=== PATIENT | female | born 1940 | race Caucasian/White ===

== ENCOUNTER → 2018-01-12 11:25 | Outpatient (CLI) | payer MEDICARE, BC, SELFPAY ==
[2018-01-12 12:10] LABS: Hemoglobin A1C% w Est Avg Glu 7.8 % (4.0-6.0)
[2018-01-12 12:19] LABS: Alanine Aminotransferase 24 IU/L (9-52); Albumin 4.2 g/dL (3.5-5.0); Albumin Globulin Ratio 1.3 (1.0-2.8); Alkaline Phosphatase 64 U/L (38-126); Aspartate Aminotransferase 25 IU/L (14-36); Bilirubin Total 0.7 mg/dL (0.2-1.3); Blood Urea Nitrogen 24 mg/dL (7-17); Calcium 9.5 mg/dL (8.4-10.2); Carbon Dioxide 28 mmol/L (22-32); Chloride 102 mmol/L (98-107); Estimated Glomerular Filt Rate > 60.0 mL/min (>60); Globulin 3.3 g/dL (1.7-4.1); Glucose 115 mg/dL (80-110); HEMOLYSIS < 15 (0-50); Potassium 4.5 mmol/L (3.4-5.1); Sodium 141 mmol/L (137-145); Total Protein 7.5 g/dL (6.3-8.2)
== END ==
PROVIDERS: PCP Family Medicine; Visit Provider Family Medicine
DX: M13.0 Polyarthritis, unspecified (principal); R73.9 Hyperglycemia, unspecified
CPT/HCPCS: 36415; 80053; 83036

== ENCOUNTER 2018-03-03 12:22 | Emergency (ER) | payer MEDICARE, BC, SELFPAY ==
[2018-03-03 12:32] VITALS: BP 127/99; PULSE 78; RESP 20; TEMP 36.3; O2SAT 100; BMI 27.4
[2018-03-03 12:33] VITALS: PULSE 82
--- NOTE | 2018-03-03 12:34 | PC.NURSE ---
FAST exam negative. Pt describes numbness and tingling down the right arm and into the right hand and fingers. Denies any injury. There is slight pain in the right side of the neck when she turns her head all the way to the left. States the pain and sensation she feels in her arm is similar to when she was diagnosed with sciatica. Ambulated in the ED with steady gait.
--- NOTE | 2018-03-03 12:46 | ED_ITS ---
HPI - Extremity Injury (Upper) <Danyell Lloyd PA-C - Last Filed: 03/03/18 19:51> General Chief Complaint: Extremity Injury, Upper Stated Complaint: numbness in right arm/hand Time Seen by Provider: 03/03/18 12:38 Source: patient Mode of arrival: ambulatory Limitations: no limitations History of Present Illness HPI narrative: This 78-year-old female states that she was referred by her PCP office due to onset of tingly pain and numb sensation in her right upper extremity. She states that this started yesterday. She states that there was no new trauma, but she did do yoga which involves twisting, and it did seem to worsen after that, but was present to some degree prior. She states that pain radiates from the back of her shoulder area near the neck down into her arm. She feels like it is present more in the back of the arm into the fingers. It is hard for her to tell which fingers are affected. She states the thumb is not affected. She denies any weakness and states that it is mainly numbness and pain somewhat that limit her movement. She states that pain and tingling worsen with lying on her right shoulder, also with external rotation of the shoulder in doing overhead movements. She states that this is very similar to the sciatic type pain that she has had in the past. She states that pain improves a little bit with shaking her arm out or rubbing it, but comes back a short time later. She denies any other new pain or paresthesia. She denies any focal weakness, difficulty with speech, swallowing, walking. Not having any new chest pain or dyspnea or other new symptoms on systems review Related Data Home Medications Medication Instructions Recorded Confirmed brimonidine 1 drp OPHTH BID #0 12/03/16 03/03/18 leflunomide 20 mg tablet 20 mg PO DAILY 12/02/17 03/03/18 hydroxychloroquine 200 mg tablet 200 mg PO DAILY 01/13/18 03/03/18 naproxen 500 mg tablet 500 mg PO QD-BID PRN 01/13/18 03/03/18 Glucose: Test Strips 1 str MISCELLANEOUS QID 03/03/18 03/03/18 atorvastatin [Lipitor] 10 mg PO BEDTIME 03/03/18 03/03/18 latanoprost 1 drp EYE-BOTH BEDTIME 03/03/18 03/03/18 timolol maleate 1 drp OPHTHALMIC (EYE) SEEINSTR 03/03/18 03/03/18 Previous Rx's Medication Instructions Recorded lisinopril 2.5 mg PO QAM #90 tab 10/21/17 insulin glargine [Basaglar KwikPen 10 unit SQ HS #1 syr 10/27/17 U-100 Insulin] canagliflozin [Invokana] 100 mg PO QAM #90 tab 12/08/17 sitagliptin 100 mg tablet 100 mg PO QDAY #90 tab 12/08/17 glimepiride 2 mg tablet 2 mg PO TID #270 tabs 02/03/18 Allergies Allergy/AdvReac Type Severity Reaction Status Date / Time metformin [METFORMIN] Allergy Unknown Verified 01/13/18 08:54 Penicillins [PENICILLINS] Allergy Unknown Verified 01/13/18 08:54 rofecoxib [ROFECOXIB] Allergy Unknown Verified 01/13/18 08:54 Sulfa (Sulfonamide Allergy Unknown Verified 01/13/18 08:54 Antibiotics) [SULFA (SULFONAMIDE ANTIBIOTICS)] methotrexate AdvReac Verified 01/13/18 08:54 Review of Systems <Danyell Lloyd PA-C - Last Filed: 03/03/18 19:51> Review of Systems All systems reviewed & are unremarkable except as noted in HPI and below Exam <Danyell Lloyd PA-C - Last Filed: 03/03/18 19:51> Narrative Exam Narrative: GENERAL APPEARANCE: Patient sitting comfortably, appears well HEENT: PERRL, EOMI, normal oropharynx NECK: Supple, no masses LUNGS: Clear to auscultation bilaterally. HEART: Rate and rhythm regular without murmur, normal S1 and S2, no S3 or S4. NEUROLOGIC: Alert and oriented, normal speech with symmetric facial musculature , normal gait and coordination. MUSCULOSKELETAL: No point tenderness over the cervical or upper thoracic spine. Full Csp AROM with tenderness on right rotation, which elicits symptoms. She is moderately tender through all of the posterior and lateral right shoulder bony prominences, mildly tender over the right clavicle. She has slightly reduced external rotation of the right shoulder secondary to tenderness. She is not able to maintain resisted abduction secondary to tenderness. Otherwise full range of motion of the right shoulder. No tenderness or weakness with resisted cross-body adduction. 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 Hands are noted to be nodular DERM: No exanthem Initial Vital Signs Initial Vital Signs: Vital Signs Temperature 97.4 F L 03/03/18 12:32 Pulse Rate 78 03/03/18 12:32 Respiratory Rate 20 03/03/18 12:32 Blood Pressure 127/99 H 03/03/18 12:32 Pulse Oximetry 100 03/03/18 12:32 <DO Adrien Og Last Filed: 03/04/18 07:08> Initial Vital Signs Initial Vital Signs: Vital Signs Temperature 97.4 F L 03/03/18 12:32 Pulse Rate 78 03/03/18 12:32 Respiratory Rate 20 03/03/18 12:32 Blood Pressure 127/99 H 03/03/18 12:32 Pulse Oximetry 100 03/03/18 12:32 Course <LUCRECIA Taylor Last Filed: 03/03/18 19:51> Orders Ordered: ED Orders 03/03/18 13:00 XR cervical spine 2V or 3V Stat XR shoulder RT min 2V Stat Vital Signs - 8 hr 03/03/18 12:32 03/03/18 12:33 03/03/18 14:24 Temperature 97.4 F L Pulse Rate 78 73 Pulse Rate [Bilateral Dorsalis Pedis] 82 Respiratory Rate 20 16 Blood Pressure 127/99 H 132/113 H Pulse Oximetry 100 97 <DO Adrien Og Filed: 03/04/18 07:08> Orders Ordered: ED Orders 03/03/18 13:00 XR cervical spine 2V or 3V Stat XR shoulder RT min 2V Stat Vital Signs - 8 hr 03/03/18 12:32 03/03/18 12:33 03/03/18 14:24 Temperature 97.4 F L Pulse Rate 78 73 Pulse Rate [Bilateral Dorsalis Pedis] 82 Respiratory Rate 20 16 Blood Pressure 127/99 H 132/113 H Pulse Oximetry 100 97 MDM - Extremity Injury (Upper) <LUCRECIA Taylor Last Filed: 03/03/18 19:51> Imaging Data Cspine: Radiologist's impression: View Report History [address] [address] XRay Report Signed Patient: Sirena Salguero MR#: [id number] : 1940 Acct:[id number] Age/Sex: 78 / F Date of Service: 03/03/18 Loc: ED Accession Number: [id number] Procedure: XR cervical spine 2V or 3V Ordering Provider: Danyell Lloyd P.A-C PROCEDURE: XR CERVICAL SPINE 2V OR 3V INDICATIONS: Right upper extremity pain, radicular TECHNIQUE: 3 view(s) of the cervical spine were acquired. COMPARISON: None. FINDINGS: Bones: No fractures or dislocations to the T1 level. The lateral masses of C1 appear intact on the odontoid view. No suspicious bony lesions. There is moderately severe mid and lower cervical degenerative disc disease and facet osteoarthritis greater on the right than the left, to the degree of significant spinal and foraminal stenosis likely is present at the middle third of the cervical spine. Soft tissues: No prevertebral soft tissue swelling. IMPRESSION: No acute trauma found but moderately severe degenerative disc disease and facet osteoarthritis is present over the middle and lower thirds of the cervical spine to the degree that spinal and foraminal stenosis would be expected. Followup by MR scanning may be warranted. Dictated by: Milan Squires M.D. on 03/03/2018 at 13:53 Approved by: Milan Squires M.D. on 03/03/2018 at 13:54 shoulder: Radiologist's impression: [address] [address] XRay Report Signed Patient: Sirena Salguero MR#: [id number] : 1940 Acct:[id number] Age/Sex: 78 / F Date of Service: 03/03/18 Loc: ED Accession Number: [id number] Procedure: XR shoulder RT min 2V Ordering Provider: Danyell Lloyd P.A-C PROCEDURE: XR SHOULDER RT MIN 2V INDICATIONS: pain/impingement TECHNIQUE: 3 views of the shoulder were acquired. COMPARISON: None. FINDINGS: Bones: No fractures or dislocations. No suspicious bony lesions. Visualized ribs appear intact. Soft tissues: No suspicious soft tissue calcifications. IMPRESSION: There is moderately severe a.c. joint osteoarthritis and moderate glenohumeral joint degenerative change but no acute trauma found. Dictated by: Milan Squires M.D. on 03/03/2018 at 13:54 Approved by: Milan Squires M.D. on 03/03/2018 at 13:54 Discharge Plan Departure Patient Disposition: Home, Self-Care Clinical Impression: Cervical radicular pain, Degenerative disc disease, cervical, OA ( osteoarthritis) of shoulder Discharge Date/Time: 03/03/18 14:24 Interventions: ED Discharge Assessment Last Done: 03/03/18 14:24 Instructions: DI for Cervical Radiculopathy Activity Restrictions/Additional Instructions: You have significant arthritis in the mid and lower part of your cervical spine (neck) as well as in your shoulder. I think your pain and numbness may be more likely coming from your neck given the appearance of x-ray today, but the shoulder may contribute as well. Please avoid yoga for now and other activities that put pressure on the shoulder and neck. Continue usual medications. Return as we talked about if you have acutely worsening symptoms. Otherwise, please follow-up with your PCP to assess your progress and determine whether to do further testing such as MRI, or treatment such as physical therapy. Prescriptions: No Action hydroxychloroquine 200 mg tablet 200 mg PO DAILY RF: 0 naproxen 500 mg tablet 500 mg PO QD-BID PRN (Reason: Pain, Mild) RF: 0 leflunomide 20 mg tablet 20 mg PO DAILY RF: 0 brimonidine 0.15 % Drops 1 drp OPHTH BID Qty: 0 RF: 0 lisinopril 2.5 MG tablet 2.5 mg PO QAM Qty: 90 RF: 1 insulin glargine [Basaglar KwikPen U-100 Insulin] 100 UNIT/1 ML insulin pen 10 unit SQ HS Qty: 1 RF: 3 sitagliptin [Januvia] 100 mg tablet 100 mg PO QDAY Qty: 90 RF: 1 canagliflozin [Invokana] 100 mg tablet 100 mg PO QAM Qty: 90 RF: 0 glimepiride 2 mg tablet 2 mg PO TID Qty: 270 RF: 0 latanoprost 0.005 % drops 1 drp EYE-BOTH BEDTIME RF: 0 timolol maleate 0.5 % drops 1 drp ophthalmic (eye) SEEINSTR RF: 0 atorvastatin [Lipitor] 10 mg tablet 10 mg PO BEDTIME RF: 0 Glucose: Test Strips 1 str miscellaneous QID RF: 0 Referrals: [facility], Rheumatology [Other] Kyung Souza DO [Primary Care Provider] - <Gallito Elder DO - Last Filed: 03/04/18 07:08> Cosign ED Attending Eloise Attestation: I was available for consultation during this patient's emergency department encounter
--- NOTE | 2018-03-03 13:00 | DI.RAD.S_ITS ---
PROCEDURE: XR CERVICAL SPINE 2V OR 3V INDICATIONS: Right upper extremity pain, radicular TECHNIQUE: 3 view(s) of the cervical spine were acquired. COMPARISON: None. FINDINGS: Bones: No fractures or dislocations to the T1 level. The lateral masses of C1 appear intact on the odontoid view. No suspicious bony lesions. There is moderately severe mid and lower cervical degenerative disc disease and facet osteoarthritis greater on the right than the left, to the degree of significant spinal and foraminal stenosis likely is present at the middle third of the cervical spine. Soft tissues: No prevertebral soft tissue swelling. IMPRESSION: No acute trauma found but moderately severe degenerative disc disease and facet osteoarthritis is present over the middle and lower thirds of the cervical spine to the degree that spinal and foraminal stenosis would be expected. Followup by MR scanning may be warranted. Dictated by: Milan Squires M.D. on 03/03/2018 at 13:53 Approved by: Milan Squires M.D. on 03/03/2018 at 13:54
--- NOTE | 2018-03-03 13:00 | DI.RAD.S_ITS ---
PROCEDURE: XR SHOULDER RT MIN 2V INDICATIONS: pain/impingement TECHNIQUE: 3 views of the shoulder were acquired. COMPARISON: None. FINDINGS: Bones: No fractures or dislocations. No suspicious bony lesions. Visualized ribs appear intact. Soft tissues: No suspicious soft tissue calcifications. IMPRESSION: There is moderately severe a.c. joint osteoarthritis and moderate glenohumeral joint degenerative change but no acute trauma found. Dictated by: Milan Squires M.D. on 03/03/2018 at 13:54 Approved by: Milan Squires M.D. on 03/03/2018 at 13:54
[2018-03-03 14:24] VITALS: BP 132/113; PULSE 73; RESP 16; O2SAT 97
== END 2018-03-03 14:24 | disposition home or self-care (01) ==
PROVIDERS: Emergency Provider Internal Medicine; Family Provider Family Medicine; PCP Family Medicine
DX: M54.12 Radiculopathy, cervical region (principal); M50.30 Other cervical disc degeneration, unspecified cervical region; M19.019 Primary osteoarthritis, unspecified shoulder
CPT/HCPCS: 72040; 73030; 99282; 99283

== ENCOUNTER → 2018-04-17 08:56 | Outpatient (CLI) | payer MEDICARE, BC, SELFPAY ==
[2018-04-17 10:07] LABS: Hemoglobin A1C% w Est Avg Glu 7.8 % (4.0-6.0)
[2018-04-17 10:12] LABS: Alanine Aminotransferase 19 IU/L (9-52); Albumin 4.1 g/dL (3.5-5.0); Albumin Globulin Ratio 1.4 (1.0-2.8); Alkaline Phosphatase 46 U/L (38-126); Aspartate Aminotransferase 30 IU/L (14-36); BUN Creatinine Ratio 21.7 (6-22); Bilirubin Total 0.8 mg/dL (0.2-1.3); Blood Urea Nitrogen 13 mg/dL (7-17); Calcium 9.4 mg/dL (8.4-10.2); Carbon Dioxide 31 mmol/L (22-32); Chloride 105 mmol/L (98-107); Cholesterol 151 mg/dL (140-199); Estimated Glomerular Filt Rate > 60.0 mL/min (>60); Globulin 2.9 g/dL (1.7-4.1); Glucose 97 mg/dL (80-110); HDL Cholesterol 59 mg/dL (40-60); HEMOLYSIS < 15 (0-50); LDL Cholesterol Calculated 72 mg/dL (<100); Potassium 4.5 mmol/L (3.4-5.1); Sodium 142 mmol/L (137-145); Triglycerides 98 mg/dL (35-150)
[2018-04-17 10:31] LABS: Thyroid Stimulating Hormone 0.42 uIU/mL (0.47-4.68)
== END ==
PROVIDERS: PCP Family Medicine; Visit Provider Family Medicine
DX: E11.9 Type 2 diabetes mellitus without complications (principal); K76.0 Fatty (change of) liver, not elsewhere classified; I10 Essential (primary) hypertension
CPT/HCPCS: 36415; 80053; 80061; 83036; 84443

== ENCOUNTER → 2018-07-20 10:19 | Outpatient (CLI) | payer MEDICARE, BC, SELFPAY ==
[2018-07-20 10:52] LABS: Add Manual Diff / Slide Review NO; Basophils Percent Auto 0.8 % (0-2); Eosinophils Percent Auto 2.9 % (2-4); Mean Corpuscular HGB Conc 33.3 % (30-36); Mean Corpuscular Hemoglobin 30.9 PG (26-34); Mean Corpuscular Volume 92.7 fL (80-100); Monocytes Percent Auto 8.4 % (3-14); Neutrophils Absolute Auto 5200 /uL (1500-7000); Neutrophils Percent Auto 68.9 % (50-75); Platelet Count 195 X10^3/uL (150-400); Red Blood Cell Count 4.85 X10^6/uL (4.0-5.2); Red Cell Distribution Width 13.5 % (11.6-14.8); White Blood Cell Count 7.5 X10^3/uL (4.5-11.0)
[2018-07-20 11:07] LABS: Erythrocyte Sedimentation Rate 5 MM/HR (0-20)
[2018-07-20 11:55] LABS: Alanine Aminotransferase 22 IU/L (9-52); Albumin 4.3 g/dL (3.5-5.0); Albumin Globulin Ratio 1.7 (1.0-2.8); Alkaline Phosphatase 58 U/L (38-126); Aspartate Aminotransferase 27 IU/L (14-36); Bilirubin Total 0.9 mg/dL (0.2-1.3); Blood Urea Nitrogen 14 mg/dL (7-17); Calcium 9.8 mg/dL (8.4-10.2); Carbon Dioxide 28 mmol/L (22-32); Chloride 101 mmol/L (98-107); Estimated Glomerular Filt Rate > 60.0 mL/min (>60); Globulin 2.6 g/dL (1.7-4.1); Glucose 94 mg/dL (80-110); HEMOLYSIS < 15 (0-50); Sodium 140 mmol/L (137-145); Total Protein 6.9 g/dL (6.3-8.2)
[2018-07-20 11:57] LABS: C-Reactive Protein Quant < 0.5 mg/dL (<1.0)
[2018-07-20 12:25] LABS: Thyroid Stimulating Hormone 0.52 uIU/mL (0.47-4.68)
== END ==
PROVIDERS: Family Provider Specialist/Technologist Athletic Trainer; PCP Family Medicine; Visit Provider Family Medicine
DX: M12.9 Arthropathy, unspecified (principal); M15.0 Primary generalized (osteo)arthritis; R93.6 Abnormal findings on diagnostic imaging of limbs; E11.9 Type 2 diabetes mellitus without complications; E78.5 Hyperlipidemia, unspecified; R79.89 Other specified abnormal findings of blood chemistry
CPT/HCPCS: 36415; 80053; 83036; 84443; 85025; 85651; 86140

== ENCOUNTER → 2018-10-26 08:30 | Outpatient (CLI) | payer MEDICARE, BC, SELFPAY ==
[2018-10-26 09:03] LABS: Appearance Urine UA CLEAR; Bilirubin Urine UA NEGATIVE (NEGATIVE); Color Urine UA YELLOW; Glucose Urine UA 2+ g/dL (Negative); Ketones Urine UA NEGATIVE (NEGATIVE); Leukocyte Esterase Urine UA NEGATIVE (NEGATIVE); Nitrite Urine UA NEGATIVE (Negative); Occult Blood Urine UA TRACE-LYSED (Negative); Protein Urine UA NEGATIVE (Negative); Specific Gravity Urine UA <=1.005 (1.000-1.035); Urobilinogen Urine UA 0.2 E.U./dL (0.2)
[2018-10-26 09:17] LABS: Add Manual Diff / Slide Review NO; Basophils Absolute Auto 100 /uL (0-100); Basophils Percent Auto 1.2 % (0-2); Eosinophils Absolute Auto 200 /uL (0-450); Eosinophils Percent Auto 3.1 % (2-4); Hematocrit 44.3 % (36-46); Hemoglobin 14.5 g/dL (12.0-16.0); Lymphocytes Absolute Auto 1500 /uL (1100-4500); Lymphocytes Percent Auto 21.9 % (25-40); Mean Corpuscular HGB Conc 32.7 % (30-36); Mean Corpuscular Hemoglobin 30.3 PG (26-34); Mean Corpuscular Volume 92.8 fL (80-100); Monocytes Absolute Auto 600 /uL (0-900); Monocytes Percent Auto 8.4 % (3-14); Neutrophils Absolute Auto 4400 /uL (1500-7000); Neutrophils Percent Auto 65.4 % (50-75); Platelet Count 207 X10^3/uL (150-400); Red Blood Cell Count 4.77 X10^6/uL (4.0-5.2); Red Cell Distribution Width 13.5 % (11.6-14.8); White Blood Cell Count 6.7 X10^3/uL (4.5-11.0)
[2018-10-26 09:48] LABS: Alanine Aminotransferase 16 IU/L (9-52); Albumin 4.1 g/dL (3.5-5.0); Albumin Globulin Ratio 1.4 (1.0-2.8); Alkaline Phosphatase 51 U/L (38-126); Aspartate Aminotransferase 23 IU/L (14-36); BUN Creatinine Ratio 28.3 (6-22); Bilirubin Total 0.6 mg/dL (0.2-1.3); Blood Urea Nitrogen 17 mg/dL (7-17); Calcium 9.2 mg/dL (8.4-10.2); Carbon Dioxide 27 mmol/L (22-32); Chloride 102 mmol/L (98-107); Estimated Glomerular Filt Rate > 60.0 mL/min (>60); Globulin 2.9 g/dL (1.7-4.1); Glucose 122 mg/dL (80-110); HEMOLYSIS < 15 (0-50); Potassium 4.3 mmol/L (3.4-5.1); Sodium 138 mmol/L (137-145)
[2018-10-26 09:54] LABS: Erythrocyte Sedimentation Rate 5 MM/HR (0-20)
[2018-10-26 10:15] LABS: C-Reactive Protein Quant < 0.5 mg/dL (<1.0)
== END ==
PROVIDERS: PCP Family Medicine; Visit Provider Specialist/Technologist Athletic Trainer
DX: R93.6 Abnormal findings on diagnostic imaging of limbs (principal); M12.9 Arthropathy, unspecified; M15.0 Primary generalized (osteo)arthritis; E11.9 Type 2 diabetes mellitus without complications; I10 Essential (primary) hypertension
CPT/HCPCS: 36415; 80053; 81003; 83036; 85025; 85651; 86140

== ENCOUNTER 2018-11-14 15:03 | Emergency (ER) | payer MEDICARE, BC, SELFPAY ==
[2018-11-14 15:09] VITALS: BP 123/63; PULSE 83; RESP 17; TEMP 36; O2SAT 99
[2018-11-14] MEDS: SODIUM CHLORIDE 0.9% 1,000 ML 1000 ML IV (15:30)
--- NOTE | 2018-11-14 15:58 | ED.NAVMDI ---
HPI - Nausea/Vomiting/Diarrhea <Danyell Lloyd PA-C - Last Filed: 11/14/18 21:55> General Chief complaint: Nausea/Vomiting/Diarrhea Stated complaint: Diarrhea all day Time Seen by Provider: 11/14/18 15:58 Source: patient Mode of arrival: ambulatory Limitations: no limitations History of Present Illness HPI Narrative: This 78-year-old female comes in due to 3 day history of diarrhea. She came in mainly due to urging by her daughter. She states that this started on with explosive diarrhea that she was unable to control in the morning. She has had a couple of similar episodes since then, otherwise has multiple episodes of diarrhea daily, more than 10-12, worse in the morning. She states that she has had no appetite, trying to keep up on fluids and has been drinking Pedialyte in the last day or so. She denies abdominal pain except for some mild cramps with the diarrhea. She denies fever, chills, sweats. She denies nausea or vomiting. she denies any new urinary symptoms. She states that she has been working at a [employer] function and eating some of the food there the last few weeks, but does not know of any one else who has gotten ill. She has not worked there in the last week. She denies any new or changed medicines, no recent antibiotics, no recent travel. She is not on well water. Last episode of diarrhea was just prior to arrival here. Related Data Home Medications Medication Instructions Recorded Confirmed brimonidine 1 drp OPHTH BID #0 12/03/16 10/27/18 leflunomide 20 mg tablet 20 mg PO DAILY 12/02/17 10/27/18 hydroxychloroquine 200 mg tablet 200 mg PO DAILY 01/13/18 10/27/18 naproxen 500 mg tablet 500 mg PO QD-BID PRN 01/13/18 10/27/18 latanoprost 1 drp EYE-BOTH BEDTIME 03/03/18 10/27/18 timolol maleate 1 drp OPHTHALMIC (EYE) SEEINSTR 03/03/18 10/27/18 betamethasone dipropionate 0.05 % 1 applictn TOP BID 10/27/18 10/27/18 topical ointment prednisolone acetate 1 % eye 1 drop EYE-LEFT BID ml 10/27/18 10/27/18 drops,suspension Previous Rx's Medication Instructions Recorded insulin glargine [Basaglar KwikPen 10 unit SQ HS #1 syr 10/27/17 U-100 Insulin] blood sugar diagnostic strips #100 each 03/12/18 lisinopril 2.5 mg tablet 2.5 mg PO QAM #90 tab 05/19/18 atorvastatin 10 mg tablet 10 mg PO BEDTIME #90 tab 07/30/18 glimepiride 2 mg tablet 2 mg PO TID #270 tabs 08/11/18 canagliflozin 100 mg tablet 100 mg PO QAM #90 tab 09/01/18 sitagliptin 100 mg tablet 100 mg PO QDAY #90 tab 09/04/18 azithromycin 500 mg PO DAILY #2 tab 11/14/18 Allergies Allergy/AdvReac Type Severity Reaction Status Date / Time metformin [METFORMIN] Allergy Unknown Verified 10/27/18 08:59 Penicillins [PENICILLINS] Allergy Unknown Verified 10/27/18 08:59 rofecoxib [ROFECOXIB] Allergy Unknown Verified 10/27/18 08:59 Sulfa (Sulfonamide Allergy Unknown Verified 10/27/18 08:59 Antibiotics) [SULFA (SULFONAMIDE ANTIBIOTICS)] methotrexate AdvReac Verified 10/27/18 08:59 Review of Systems <Danyell Lloyd PA-C - Last Filed: 11/14/18 21:55> Review of Systems ROS Unobtainable: All systems reviewed & are unremarkable except as noted in HPI and below PFSH <Danyell Lloyd PA-C - Last Filed: 11/14/18 21:55> Medical History Alopecia (Chronic Unknown) Diabetes (Chronic Unknown) GERD (gastroesophageal reflux disease) (Chronic Unknown) Glaucoma (Chronic Unknown) Hyperlipemia (Chronic Unknown) Osteoarthritis (Chronic Unknown) Anemia (Resolved Unknown) Cataracts, bilateral (Resolved 2016) Kidney stones (Resolved Unknown) PUD (peptic ulcer disease) (Resolved Unknown) Surgical History Hx of cataract surgery (Resolved 2015) History of tonsillectomy Social History Smoking Status: Never smoker second hand exposure: No alcohol intake: never substance use type: does not use Social History Smoking Status: Never smoker second hand exposure: No alcohol intake: never substance use type: does not use Exam <Danyell Lloyd PA-C - Last Filed: 11/14/18 21:55> Narrative Exam Narrative: GENERAL APPEARANCE: Patient sitting comfortably, in no distress. HEENT: PERRL, EOMI, no scleral icterus, conjunctivae pink, normal oropharynx NECK: Supple LUNGS: Clear to auscultation bilaterally. HEART: Rate and rhythm regular, normal S1 and S2, no S3 or S4. ABDOMEN: Soft, nontender, nondistended, bowel sounds present x 4 quadrants, no masses palpable, no hepatosplenomegaly. EXTREMITIES: No edema, no cyanosis DERMATOLOGIC: No jaundice or exanthem NEUROLOGIC: Alert and oriented with normal speech and coordination Initial Vital Signs Initial Vital Signs: Vital Signs Temperature 96.8 F L 11/14/18 15:09 Pulse Rate 83 11/14/18 15:09 Respiratory Rate 17 11/14/18 15:09 Blood Pressure 123/63 11/14/18 15:09 Pulse Oximetry 99 11/14/18 15:09 <Gallito Elder DO - Last Filed: 11/15/18 00:15> Initial Vital Signs Initial Vital Signs: Vital Signs Temperature 96.8 F L 11/14/18 15:09 Pulse Rate 83 11/14/18 15:09 Respiratory Rate 17 11/14/18 15:09 Blood Pressure 123/63 11/14/18 15:09 Pulse Oximetry 99 11/14/18 15:09 Course <Danyell Lloyd PA-C - Last Filed: 11/14/18 21:55> Additional Information: Patient has been hydrating well at home, poor appetite but tolerating bland foods and did eat while she was here. She is afebrile, with normal, stable vitals. Able to get up and around to the bathroom. Given the frequency of her diarrhea, she does meet criteria for treatment of E coli. The source is unclear, may be more prone secondary to her immune suppressant medications. Started on azithromycin this evening and given a dose of Imodium. She will continue the azithromycin tomorrow, total of 3 doses and can use Imodium as needed. Spoke with she and her [id number] regarding need to return if any acutely worsening symptoms as in that case she may need hospitalization. Advised follow-up with PCP in a few days for recheck, and she is agreeable. Orders Ordered: ED Orders 11/14/18 15:26 Complete Blood Count AUTO DIFF Stat Comprehensive Metabolic Panel Stat Lipase Stat Magnesium Stat 11/14/18 18:15 GI Panel (Film Array) Stat Discontinued Medications Azithromycin (Zithromax) 500 mg PO NOW ONE Stop: 11/14/18 20:31 Last Admin: 11/14/18 20:46 Dose: 500 mg Sodium Chloride (Normal Saline 0.9%) 1,000 mls @ 1,000 mls/hr IV BOLUS ONE Stop: 11/14/18 17:30 Last Infusion: 11/14/18 16:33 Dose: 0 mls/hr Admin: 11/14/18 15:30 Dose: 1,000 mls/hr Sodium Chloride (Normal Saline 0.9%) 1,000 mls @ 1,000 mls/hr IV BOLUS ONE Stop: 11/14/18 17:32 Last Admin: 11/14/18 17:11 Dose: Not Given Loperamide HCl (Imodium) 4 mg PO NOW ONE Stop: 11/14/18 20:43 Last Admin: 11/14/18 20:52 Dose: 4 mg Vital Signs - 8 hr 11/14/18 16:58 11/14/18 20:04 11/14/18 21:06 Temperature 98.6 F Pulse Rate 73 77 72 Respiratory Rate 17 16 16 Blood Pressure 123/64 Blood Pressure [Right Arm] 133/54 L 111/50 L Pulse Oximetry 96 96 95 <Gallito Elder DO - Last Filed: 11/15/18 00:15> Orders Ordered: ED Orders 11/14/18 15:26 Complete Blood Count AUTO DIFF Stat Comprehensive Metabolic Panel Stat Lipase Stat Magnesium Stat 11/14/18 18:15 GI Panel (Film Array) Stat Discontinued Medications Azithromycin (Zithromax) 500 mg PO NOW ONE Stop: 11/14/18 20:31 Last Admin: 11/14/18 20:46 Dose: 500 mg Sodium Chloride (Normal Saline 0.9%) 1,000 mls @ 1,000 mls/hr IV BOLUS ONE Stop: 11/14/18 17:30 Last Infusion: 11/14/18 16:33 Dose: 0 mls/hr Admin: 11/14/18 15:30 Dose: 1,000 mls/hr Sodium Chloride (Normal Saline 0.9%) 1,000 mls @ 1,000 mls/hr IV BOLUS ONE Stop: 11/14/18 17:32 Last Admin: 11/14/18 17:11 Dose: Not Given Loperamide HCl (Imodium) 4 mg PO NOW ONE Stop: 11/14/18 20:43 Last Admin: 11/14/18 20:52 Dose: 4 mg Vital Signs - 8 hr 11/14/18 16:58 11/14/18 20:04 11/14/18 21:06 Temperature 98.6 F Pulse Rate 73 77 72 Respiratory Rate 17 16 16 Blood Pressure 123/64 Blood Pressure [Right Arm] 133/54 L 111/50 L Pulse Oximetry 96 96 95 MDM - Nausea/Vomiting/Diarrhea <Danyell Lloyd PA-C - Last Filed: 11/14/18 21:55> Lab Data Attestation: I reviewed the patient's lab results. Result diagrams: 11/14/18 15:26 11/14/18 15:26 Lab Results 11/14/18 11/14/18 11/14/18 Range/Units 15:26 15:26 18:15 WBC 7.2 (4.5-11.0) X10^3/uL RBC 4.71 (4.0-5.2) X10^6/uL Hgb 14.3 (12.0-16.0) g/dL Hct 43.6 (36-46) % MCV 92.5 (80-100) fL MCH 30.4 (26-34) PG MCHC 32.8 (30-36) % RDW 13.2 (11.6-14.8) % Plt Count 193 (150-400) X10^3/uL Neut % (Auto) 62.6 (50-75) % Lymph % (Auto) 19.6 L (25-40) % Pender % (Auto) 15.2 H (3-14) % Eos % (Auto) 1.6 L (2-4) % Baso % (Auto) 1.0 (0-2) % Neut # (Auto) 4500 (0002-6434) /uL Lymph # (Auto) 1400 (4054-3875) /uL Pender # (Auto) 1100 H (0-900) /uL Eos # (Auto) 100 (0-450) /uL Baso # (Auto) 100 (0-100) /uL Sodium 138 (137-145) mmol/L Potassium 3.7 (3.4-5.1) mmol/L Chloride 103 (98-107) mmol/L Carbon Dioxide 27 (22-32) mmol/L BUN 13 (7-17) mg/dL Creatinine 0.60 (0.52-1.04) mg/dL Estimated GFR > 60.0 (>60) mL/min BUN/Creatinine Ratio 21.7 (6-22) Glucose 119 H (80-110) mg/dL Calcium 9.6 (8.4-10.2) mg/dL Magnesium 1.9 (1.6-2.3) mg/dL Total Bilirubin 0.5 (0.2-1.3) mg/dL AST 35 (14-36) IU/L ALT 21 (9-52) IU/L Alkaline Phosphatase 55 (38-126) U/L Total Protein 7.1 (6.3-8.2) g/dL Albumin 4.2 (3.5-5.0) g/dL Globulin 2.9 (1.7-4.1) g/dL Albumin/Globulin Ratio 1.4 (1.0-2.8) Lipase 190 (23-300) U/L Stl C. cayetanensis PCR Not detected (Not Detect) Stool Rotavirus (PCR) Not detected (Not Detect) Stool Adenovirus (PCR) Not detected (Not Detect) Stool Astrovirus (PCR) Not detected (Not Detect) Stool Cryptosporidium PCR Not detected (Not Detect) Stl E.coli Shiga Tox PCR Not detected (Not Detect) St Sh/Enteroin Ecoli PCR Not detected (Not Detect) Stool E coli O157 PCR Not Reportable Stl Enterotoxigenic E PCR Detected H (Not Detect) Stool EPEC (PCR) Not detected (Not Detect) Stl E. histolytica PCR Not detected (Not Detect) Stool Giardia Lamblia PCR Not detected (Not Detect) Stool Sapovirus (PCR) Not detected (Not Detect) Stl P. shigelloides PCR Not detected (Not Detect) St Y.enterocolitica PCR Not detected (Not Detect) Stool Vibrio (PCR) Not detected (Not Detect) Stl Vibrio cholerae PCR Not detected (Not Detect) Stl Enteroaggr Ecoli PCR Detected H (Not Detect) Stl Norovirus GI/GII PCR Not detected (Not Detect) Campylobacter (PCR) Not detected (Not Detect) C. difficile Tox (PCR) Not detected (Not Detect) Salmonella (PCR) Not detected (Not Detect) <Gallito Elder, DO - Last Filed: 11/15/18 00:15> Lab Data Lab Results 11/14/18 11/14/18 11/14/18 Range/Units 15:26 15:26 18:15 WBC 7.2 (4.5-11.0) X10^3/uL RBC 4.71 (4.0-5.2) X10^6/uL Hgb 14.3 (12.0-16.0) g/dL Hct 43.6 (36-46) % MCV 92.5 (80-100) fL MCH 30.4 (26-34) PG MCHC 32.8 (30-36) % RDW 13.2 (11.6-14.8) % Plt Count 193 (150-400) X10^3/uL Neut % (Auto) 62.6 (50-75) % Lymph % (Auto) 19.6 L (25-40) % Pender % (Auto) 15.2 H (3-14) % Eos % (Auto) 1.6 L (2-4) % Baso % (Auto) 1.0 (0-2) % Neut # (Auto) 4500 (3074-2559) /uL Lymph # (Auto) 1400 (1202-4405) /uL Pender # (Auto) 1100 H (0-900) /uL Eos # (Auto) 100 (0-450) /uL Baso # (Auto) 100 (0-100) /uL Sodium 138 (137-145) mmol/L Potassium 3.7 (3.4-5.1) mmol/L Chloride 103 (98-107) mmol/L Carbon Dioxide 27 (22-32) mmol/L BUN 13 (7-17) mg/dL Creatinine 0.60 (0.52-1.04) mg/dL Estimated GFR > 60.0 (>60) mL/min BUN/Creatinine Ratio 21.7 (6-22) Glucose 119 H (80-110) mg/dL Calcium 9.6 (8.4-10.2) mg/dL Magnesium 1.9 (1.6-2.3) mg/dL Total Bilirubin 0.5 (0.2-1.3) mg/dL AST 35 (14-36) IU/L ALT 21 (9-52) IU/L Alkaline Phosphatase 55 (38-126) U/L Total Protein 7.1 (6.3-8.2) g/dL Albumin 4.2 (3.5-5.0) g/dL Globulin 2.9 (1.7-4.1) g/dL Albumin/Globulin Ratio 1.4 (1.0-2.8) Lipase 190 (23-300) U/L Stl C. cayetanensis PCR Not detected (Not Detect) Stool Rotavirus (PCR) Not detected (Not Detect) Stool Adenovirus (PCR) Not detected (Not Detect) Stool Astrovirus (PCR) Not detected (Not Detect) Stool Cryptosporidium PCR Not detected (Not Detect) Stl E.coli Shiga Tox PCR Not detected (Not Detect) St Sh/Enteroin Ecoli PCR Not detected (Not Detect) Stool E coli O157 PCR Not Reportable Stl Enterotoxigenic E PCR Detected H (Not Detect) Stool EPEC (PCR) Not detected (Not Detect) Stl E. histolytica PCR Not detected (Not Detect) Stool Giardia Lamblia PCR Not detected (Not Detect) Stool Sapovirus (PCR) Not detected (Not Detect) Stl P. shigelloides PCR Not detected (Not Detect) St Y.enterocolitica PCR Not detected (Not Detect) Stool Vibrio (PCR) Not detected (Not Detect) Stl Vibrio cholerae PCR Not detected (Not Detect) Stl Enteroaggr Ecoli PCR Detected H (Not Detect) Stl Norovirus GI/GII PCR Not detected (Not Detect) Campylobacter (PCR) Not detected (Not Detect) C. difficile Tox (PCR) Not detected (Not Detect) Salmonella (PCR) Not detected (Not Detect) Discharge Plan Departure Patient Disposition: Home Clinical Impression: E. coli gastroenteritis Discharge Date/Time: 11/14/18 21:14 Interventions: ED Discharge Assessment Last Done: 11/14/18 21:06 Instructions: DI for Diarrhea and Traveler's Diarrhea -- Adult Activity Restrictions/Additional Instructions: We have given you the 1st dose of an antibiotic azithromycin this evening to treat your diarrhea. Your lab testing shows 2 types of E coli, which is 1 of the most common infectious agents, in your stool. Given the volume of diarrhea you have been having, it is reasonable to take the antibiotic. You will need to take 2 more doses tomorrow and Friday, and I have sent a prescription to [facility] for you. In addition, you can take [id number] Imodium as needed for the diarrhea (we have given you a dose this evening before you left). As we talked about, you should return if you are having acutely worsening symptoms, or are feeling weak or dehydrated, as in that case you may need to be hospitalized. Otherwise, please continue plenty of clear fluids, and eat low residue foods such as bananas, applesauce, rice and bread (preferably white), and broth. You can add things like scrambled eggs, baked potato without the skin, and some plain pasta as you start to feel better and gradually resume your normal diet. Prescriptions: New azithromycin 500 mg tablet 500 mg PO DAILY Qty: 2 RF: 0 No Action hydroxychloroquine 200 mg tablet 200 mg PO DAILY RF: 0 naproxen 500 mg tablet 500 mg PO QD-BID PRN (Reason: Pain, Mild) RF: 0 leflunomide 20 mg tablet 20 mg PO DAILY RF: 0 prednisolone acetate 1 % drops,suspension 1 drop EYE-LEFT BID RF: 0 betamethasone dipropionate 0.05 % ointment 1 applictn TOP BID RF: 0 brimonidine 0.15 % Drops 1 drp OPHTH BID Qty: 0 RF: 0 insulin glargine [Basaglar KwikPen U-100 Insulin] 100 UNIT/1 ML insulin pen 10 unit SQ HS Qty: 1 RF: 3 blood sugar diagnostic [Blood Glucose Test] strip .ROUTE .MEDSUPPLY Qty: 100 RF: 11 lisinopril 2.5 mg tablet 2.5 mg PO QAM Qty: 90 RF: 1 atorvastatin [Lipitor] 10 mg tablet 10 mg PO BEDTIME Qty: 90 RF: 1 glimepiride 2 mg tablet 2 mg PO TID Qty: 270 RF: 1 canagliflozin [Invokana] 100 mg tablet 100 mg PO QAM Qty: 90 RF: 0 sitagliptin [Januvia] 100 mg tablet 100 mg PO QDAY Qty: 90 RF: 1 latanoprost 0.005 % drops 1 drp EYE-BOTH BEDTIME RF: 0 timolol maleate 0.5 % drops 1 drp ophthalmic (eye) SEEINSTR RF: 0 Referrals: Kyung Souza DO [Primary Care Provider] - <Gallito Elder DO - Last Filed: 11/15/18 00:15> Cosign ED Attending Emileature Attestation: I was available for consultation during this patient's emergency department encounter
[2018-11-14 16:34] LABS: Add Manual Diff / Slide Review NO; Basophils Absolute Auto 100 /uL (0-100); Eosinophils Absolute Auto 100 /uL (0-450); Eosinophils Percent Auto 1.6 % (2-4); Hematocrit 43.6 % (36-46); Hemoglobin 14.3 g/dL (12.0-16.0); Lymphocytes Absolute Auto 1400 /uL (1100-4500); Lymphocytes Percent Auto 19.6 % (25-40); Mean Corpuscular HGB Conc 32.8 % (30-36); Mean Corpuscular Hemoglobin 30.4 PG (26-34); Mean Corpuscular Volume 92.5 fL (80-100); Monocytes Absolute Auto 1100 /uL (0-900); Monocytes Percent Auto 15.2 % (3-14); Neutrophils Absolute Auto 4500 /uL (1500-7000); Neutrophils Percent Auto 62.6 % (50-75); Platelet Count 193 X10^3/uL (150-400); Red Blood Cell Count 4.71 X10^6/uL (4.0-5.2); Red Cell Distribution Width 13.2 % (11.6-14.8); White Blood Cell Count 7.2 X10^3/uL (4.5-11.0)
[2018-11-14 16:35] LABS: Alanine Aminotransferase 21 IU/L (9-52); Albumin 4.2 g/dL (3.5-5.0); Albumin Globulin Ratio 1.4 (1.0-2.8); Alkaline Phosphatase 55 U/L (38-126); Aspartate Aminotransferase 35 IU/L (14-36); BUN Creatinine Ratio 21.7 (6-22); Bilirubin Total 0.5 mg/dL (0.2-1.3); Blood Urea Nitrogen 13 mg/dL (7-17); Calcium 9.6 mg/dL (8.4-10.2); Carbon Dioxide 27 mmol/L (22-32); Chloride 103 mmol/L (98-107); Estimated Glomerular Filt Rate > 60.0 mL/min (>60); Globulin 2.9 g/dL (1.7-4.1); Glucose 119 mg/dL (80-110); HEMOLYSIS < 15 (0-50); Lipase 190 U/L (23-300); Magnesium 1.9 mg/dL (1.6-2.3); Potassium 3.7 mmol/L (3.4-5.1); Sodium 138 mmol/L (137-145); Total Protein 7.1 g/dL (6.3-8.2)
[2018-11-14 16:58] VITALS: BP 133/54; PULSE 73; RESP 17; O2SAT 96
[2018-11-14 20:04] VITALS: BP 111/50; PULSE 77; RESP 16; O2SAT 96
[2018-11-14 20:17] LABS: Campylobacter Not Detected (Not Detect); Clostridium difficile toxin AB Not Detected (Not Detect); Enteroaggregative E.coli Detected (Not Detect); Enteropathogenic E.coli Not Detected (Not Detect); Plesiomonsa shigelloides Not Detected (Not Detect); Salmonella Not Detected (Not Detect); Vibrio Not Detected (Not Detect); Vibrio cholerae Not Detected (Not Detect); Yersinia enterocolitica Not Detected (Not Detect)
[2018-11-14 20:18] LABS: Adenovirus F 40/41 Not Detected (Not Detect); Astrovirus Not Detected (Not Detect); Cryptosporidium Not Detected (Not Detect); Cyclospora cayetanensis Not Detected (Not Detect); Entamoeba histolytica Not Detected (Not Detect); Enterotoxigenic E.coli It/st Detected (Not Detect); Giardia lamblia Not Detected (Not Detect); Norovirus GI/GII Not Detected (Not Detect); Rotavirus A Not Detected (Not Detect); Sapovirus Not Detected (Not Detect); Shiga-like toxin-prod E.coli Not Detected (Not Detect); Shigella/Enteroinvasive E.coli Not Detected (Not Detect)
[2018-11-14] MEDS: AZITHROMYCIN 250 MG TABLET 500 MG PO (20:46)
[2018-11-14] MEDS: LOPERAMIDE 2 MG CAPSULE 4 MG PO (20:52)
[2018-11-14 21:06] VITALS: BP 123/64; PULSE 72; RESP 16; TEMP 37; O2SAT 95
== END 2018-11-14 21:14 | disposition home or self-care (01) ==
PROVIDERS: Emergency Provider Internal Medicine; PCP Family Medicine
DX: A04.4 Other intestinal Escherichia coli infections (principal)
CPT/HCPCS: 36591; 80053; 83690; 83735; 85025; 87507; 96360; 99283

== ENCOUNTER → 2018-11-17 14:38 | Outpatient (CLI) | payer MEDICARE, BC, SELFPAY | PROVIDERS: PCP Family Medicine; Visit Provider Family Medicine | DX: M85.851 Other specified disorders of bone density and structure, right thigh (principal); Z78.0 Asymptomatic menopausal state; E11.9 Type 2 diabetes mellitus without complications; R29.890 Loss of height; Z82.62 Family history of osteoporosis | CPT/HCPCS: 77080 ==

== ENCOUNTER → 2019-04-23 08:12 | Outpatient (CLI) | payer MEDICARE, BC, SELFPAY ==
[2019-04-23 08:56] LABS: Appearance Urine UA CLEAR; Bilirubin Urine UA NEGATIVE (NEGATIVE); Color Urine UA YELLOW; Glucose Urine UA 3+ g/dL (Negative); Ketones Urine UA NEGATIVE (NEGATIVE); Leukocyte Esterase Urine UA NEGATIVE (NEGATIVE); Nitrite Urine UA NEGATIVE (Negative); Occult Blood Urine UA TRACE-LYSED (Negative); Protein Urine UA NEGATIVE (Negative); Specific Gravity Urine UA <=1.005 (1.000-1.035); Urobilinogen Urine UA 0.2 E.U./dL (0.2)
[2019-04-23 09:09] LABS: Hematocrit 41.7 % (36-46); Hemoglobin 14.1 g/dL (12.0-16.0); Mean Corpuscular HGB Conc 33.9 % (30-36); Mean Corpuscular Volume 91.6 fL (80-100); Platelet Count 191 X10^3/uL (150-400); Red Blood Cell Count 4.56 X10^6/uL (4.0-5.2); Red Cell Distribution Width 13.1 % (11.6-14.8); White Blood Cell Count 6.8 X10^3/uL (4.5-11.0)
[2019-04-23 09:18] LABS: Hemoglobin A1C% w Est Avg Glu 6.9 % (4.0-6.0)
[2019-04-23 09:29] LABS: Alanine Aminotransferase 15 IU/L (9-52); Albumin 4.2 g/dL (3.5-5.0); Albumin Globulin Ratio 1.4 (1.0-2.8); Alkaline Phosphatase 45 U/L (38-126); Aspartate Aminotransferase 28 IU/L (14-36); BUN Creatinine Ratio 34.3 (6-22); Bilirubin Total 0.8 mg/dL (0.2-1.3); Blood Urea Nitrogen 24 mg/dL (7-17); Calcium 9.5 mg/dL (8.4-10.2); Carbon Dioxide 29 mmol/L (22-32); Chloride 101 mmol/L (98-107); Cholesterol 169 mg/dL (140-199); Estimated Glomerular Filt Rate > 60.0 mL/min (>60); Globulin 2.9 g/dL (1.7-4.1); Glucose 147 mg/dL (80-110); HDL Cholesterol 54 mg/dL (40-60); HEMOLYSIS < 15 (0-50); LDL Cholesterol Calculated 92 mg/dL (<100); Potassium 4.4 mmol/L (3.4-5.1); Sodium 139 mmol/L (137-145); Total Protein 7.1 g/dL (6.3-8.2); Triglycerides 117 mg/dL (35-150)
[2019-04-23 09:31] LABS: Neutrophils Absolute Manual 4624 /uL (3000-5900); RBC Morphology Normal Morphology; Total Cells Counted 100
[2019-04-23 10:07] LABS: Thyroid Stimulating Hormone 0.83 uIU/mL (0.47-4.68)
== END ==
PROVIDERS: PCP Family Medicine; Visit Provider Family Medicine
DX: E11.9 Type 2 diabetes mellitus without complications (principal); K76.0 Fatty (change of) liver, not elsewhere classified; M13.0 Polyarthritis, unspecified; R73.9 Hyperglycemia, unspecified
CPT/HCPCS: 36415; 80053; 80061; 81003; 83036; 84443; 85025

== ENCOUNTER → 2019-07-19 09:27 | Outpatient (CLI) | payer MEDICARE, BC, SELFPAY | PROVIDERS: PCP Family Medicine; Visit Provider Family Medicine | DX: L29.2 Pruritus vulvae (principal); N94.89 Other specified conditions associated with female genital organs and menstrual cycle | CPT/HCPCS: 87255 ==

== ENCOUNTER → 2019-09-24 08:26 | Outpatient (CLI) | payer MEDICARE, BC, SELFPAY ==
[2019-09-24 09:28] LABS: Add Manual Diff / Slide Review NO; Basophils Absolute Auto 100 /uL (0-100); Basophils Percent Auto 0.9 % (0-2); Eosinophils Absolute Auto 200 /uL (0-450); Eosinophils Percent Auto 2.9 % (2-4); Hematocrit 41.9 % (36-46); Hemoglobin 13.9 g/dL (12.0-16.0); Lymphocytes Absolute Auto 1400 /uL (1100-4500); Lymphocytes Percent Auto 23.3 % (25-40); Mean Corpuscular HGB Conc 33.2 % (30-36); Mean Corpuscular Hemoglobin 30.6 PG (26-34); Mean Corpuscular Volume 92.1 fL (80-100); Monocytes Absolute Auto 500 /uL (0-900); Monocytes Percent Auto 8.6 % (3-14); Neutrophils Absolute Auto 3900 /uL (1500-7000); Neutrophils Percent Auto 64.3 % (50-75); Platelet Count 209 X10^3/uL (150-400); Red Blood Cell Count 4.55 X10^6/uL (4.0-5.2); Red Cell Distribution Width 13.3 % (11.6-14.8); White Blood Cell Count 6.1 X10^3/uL (4.5-11.0)
[2019-09-24 09:49] LABS: Hemoglobin A1C% w Est Avg Glu 7.2 % (4.0-6.0)
[2019-09-24 09:54] LABS: Alanine Aminotransferase 11 IU/L (<35); Albumin 4.2 g/dL (3.5-5.0); Albumin Globulin Ratio 1.4 (1.0-2.8); Alkaline Phosphatase 43 U/L (38-126); Aspartate Aminotransferase 31 IU/L (14-36); BUN Creatinine Ratio 36.7 (6-22); Bilirubin Total 0.7 mg/dL (0.2-1.3); Blood Urea Nitrogen 22 mg/dL (7-17); Calcium 9.6 mg/dL (8.4-10.2); Carbon Dioxide 32 mmol/L (22-32); Chloride 102 mmol/L (98-107); Cholesterol 171 mg/dL (140-199); Estimated Glomerular Filt Rate > 60.0 mL/min (>60); Glucose 106 mg/dL (80-110); HDL Cholesterol 49 mg/dL (40-60); HEMOLYSIS < 15 (0-50); LDL Cholesterol Calculated 98 mg/dL (<100); Potassium 4.5 mmol/L (3.4-5.1); Sodium 139 mmol/L (137-145); Total Protein 7.2 g/dL (6.3-8.2); Triglycerides 118 mg/dL (35-150)
[2019-09-24 10:53] LABS: Appearance Urine UA CLEAR; Bilirubin Urine UA NEGATIVE (NEGATIVE); Color Urine UA YELLOW; Glucose Urine UA 3+ g/dL (Negative); Ketones Urine UA NEGATIVE (NEGATIVE); Leukocyte Esterase Urine UA NEGATIVE (NEGATIVE); Nitrite Urine UA NEGATIVE (Negative); Occult Blood Urine UA TRACE-LYSED (Negative); Protein Urine UA NEGATIVE (Negative); Specific Gravity Urine UA <=1.005 (1.000-1.035); Urobilinogen Urine UA 0.2 E.U./dL (0.2)
[2019-09-24 10:55] LABS: pH Urine UA 5.5 (4.5-8.0)
== END ==
PROVIDERS: PCP Family Medicine; Referring Provider Family Medicine; Visit Provider Family Medicine
DX: E11.9 Type 2 diabetes mellitus without complications (principal); K76.0 Fatty (change of) liver, not elsewhere classified; R73.9 Hyperglycemia, unspecified; M13.0 Polyarthritis, unspecified; M19.90 Unspecified osteoarthritis, unspecified site
CPT/HCPCS: 36415; 80053; 80061; 81003; 83036; 85025

== ENCOUNTER → 2019-10-06 10:46 | Outpatient (CLI) | payer MEDICARE, BC, SELFPAY ==
--- NOTE | 2019-10-06 10:48 | DI.RAD.S_ITS ---
PROCEDURE: XR ANKLE RT MIN 3V INDICATIONS: possible fracture TECHNIQUE: 3 views of the ankle were acquired. COMPARISON: None. FINDINGS: Bones: No fractures or dislocations. Ankle mortise is normally aligned. No suspicious bony lesions. Calcaneal spur is noted. Degenerative changes are noted along the dorsal surface of the midfoot. Soft tissues: Minimal lateral malleolar soft tissue edema. Achilles tendon appears normal. IMPRESSION: No visualized acute fracture or dislocation. However, if clinical concern and/or pain persist, short interval imaging followup in 7-10 days is recommended, as occult injury cannot be definitively excluded. Dictated by: Anna Diaz M.D. on 10/06/2019 at 11:06 Approved by: Anna Diaz M.D. on 10/06/2019 at 11:07
--- NOTE | 2019-10-06 10:48 | DI.RAD.S_ITS ---
PROCEDURE: XR FOOT RT MIN 3V INDICATIONS: possible fracture TECHNIQUE: 3 views of the foot were acquired. COMPARISON: [facility], CR, XR ANKLE RT MIN 3V, 10/06/2019, 10:45. FINDINGS: Bones: No acute fractures or dislocations. No suspicious bony lesions. Degenerative versus posttraumatic changes are noted within the midfoot. Overall appearance appears chronic. Prominent first MTP degenerative narrowing is noted. Soft tissues: No tibiotalar joint effusion. Achilles tendon appears normal. IMPRESSION: No visualized acute fracture or dislocation. However, if clinical concern and/or pain persist, short interval imaging followup in 7-10 days is recommended, as occult injury cannot be definitively excluded. Dictated by: Anna Diaz M.D. on 10/06/2019 at 11:07 Approved by: Anna Diaz M.D. on 10/06/2019 at 11:08
== END ==
PROVIDERS: PCP Family Medicine; Referring Provider Physician Assistant; Visit Provider Physician Assistant
DX: S99.921A Unspecified injury of right foot, initial encounter (principal); X58.XXXA Exposure to other specified factors, initial encounter
CPT/HCPCS: 73610; 73630

== ENCOUNTER → 2020-03-24 08:08 | Outpatient (CLI) | payer MEDICARE, BC, SELFPAY ==
[2020-03-24 09:05] LABS: Add Manual Diff / Slide Review NO; Basophils Absolute Auto 100 /uL (0-100); Basophils Percent Auto 1.2 % (0-2); Eosinophils Absolute Auto 200 /uL (0-450); Eosinophils Percent Auto 2.5 % (2-4); Hematocrit 41.5 % (36-46); Hemoglobin 13.8 g/dL (12.0-16.0); Lymphocytes Absolute Auto 1300 /uL (1100-4500); Lymphocytes Percent Auto 20.1 % (25-40); Mean Corpuscular HGB Conc 33.4 % (30-36); Mean Corpuscular Hemoglobin 30.6 PG (26-34); Mean Corpuscular Volume 91.7 fL (80-100); Monocytes Absolute Auto 600 /uL (0-900); Monocytes Percent Auto 9.3 % (3-14); Neutrophils Absolute Auto 4500 /uL (1500-7000); Neutrophils Percent Auto 66.9 % (50-75); Platelet Count 215 X10^3/uL (150-400); Red Blood Cell Count 4.52 X10^6/uL (4.0-5.2); Red Cell Distribution Width 13.1 % (11.6-14.8); White Blood Cell Count 6.7 X10^3/uL (4.5-11.0)
[2020-03-24 09:08] LABS: Hemoglobin A1C% w Est Avg Glu 7.2 % (4.0-6.0)
[2020-03-24 09:28] LABS: Alanine Aminotransferase 9 IU/L (<35); Albumin 4.2 g/dL (3.5-5.0); Albumin Globulin Ratio 1.6 (1.0-2.8); Alkaline Phosphatase 38 U/L (38-126); Aspartate Aminotransferase 26 IU/L (14-36); Bilirubin Total 0.8 mg/dL (0.2-1.3); Blood Urea Nitrogen 21 mg/dL (7-17); Calcium 9.4 mg/dL (8.4-10.2); Carbon Dioxide 25 mmol/L (22-32); Chloride 104 mmol/L (98-107); Cholesterol 180 mg/dL (140-199); Estimated Glomerular Filt Rate > 60.0 mL/min (>60); Globulin 2.7 g/dL (1.7-4.1); Glucose 105 mg/dL (80-110); HDL Cholesterol 54 mg/dL (40-60); HEMOLYSIS < 15 (0-50); LDL Cholesterol Calculated 95 mg/dL (<100); Potassium 4.3 mmol/L (3.4-5.1); Sodium 136 mmol/L (137-145); Total Protein 6.9 g/dL (6.3-8.2); Triglycerides 155 mg/dL (35-150)
[2020-03-24 09:41] LABS: Vitamin D 25 Hydroxy (D3) 38.7 ng/mL (30.0-100.0)
[2020-03-24 09:46] LABS: Free T3, Triiodothyronine Free 3.56 pg/mL (2.77-5.27); Free T4, Direct Thyroxine 1.15 ng/dL (0.78-2.19)
[2020-03-24 09:59] LABS: Thyroid Stimulating Hormone 0.696 uIU/mL (0.47-4.68)
== END ==
PROVIDERS: PCP Family Medicine; Referring Provider Family Medicine; Visit Provider Family Medicine
DX: E11.9 Type 2 diabetes mellitus without complications (principal); E78.5 Hyperlipidemia, unspecified; K76.0 Fatty (change of) liver, not elsewhere classified; M85.80 Other specified disorders of bone density and structure, unspecified site
CPT/HCPCS: 36415; 80053; 80061; 82306; 83036; 84439; 84443; 84481; 85025

== ENCOUNTER → 2020-04-18 12:48 | Outpatient (CLI) | payer MEDICARE, BC, SELFPAY ==
--- NOTE | 2020-04-18 16:10 | DIET.PN ---
Diabetes Intake: Initial Assessment Assess: Ms. Salguero is an 80 YOF referred for long standing Hx of type 2 diabetes. She has had some diabetes education in the past and has managed her glucose for years. After living at [facility] for a year she states her A1c went from 6.0 to 9.0. Now that she lives at home, she does most of her own cooking. Endorses a diet high in fruits and vegetables. She eats 4 oz of protein daily with minimal red meat or pork. She has not been able to engage in her regular physical activity since Covid-19, but has been able to do some yoga at home. She admits she is pretty sporadic with glucose monitoring. Labs: Per pt report: A1c: 7.2 Meds: Basaglar 12 u pm , invokana 100 mg; Januvia 100mg, glimepiride Diet: per 24 hr recall: B: cheesy eggs w/ veg, toast, orange; yogurt w/berries, 2tstw/pb, apple L: fruit bowel, mashed potatoes w/ hamburger gravy, squash D: 1/2 sandwich (tuna, pb), fruit bowel, ice cream Wt: 146lb Ht: 66in BMI: 23.6 BP: 134/74 DX: Altered nutrition related laboratory values related to impaired glucose metabolism, lack of previous exposure to nutrition information as evidenced by pt report, diagnosis of diabetes, previous diet high in refined carbohydrates. Intervention: 1. Completed intake assessment. Discussed barriers to care. 2. Discussed pathophysiology of diabetes. Reviewed A1c and its correlation to blood glucose numbers. Discussed recommended BG ranges. 3. Discussed importance of self-monitoring, how often, and when to check. Provided demonstration on use of glucometer. 4. Reviewed hyper/hypoglycemia and treatment. 5. Reviewed safe disposal of equipment (strip/lancets/insulin needles). 6. Created SMART goals for pt self-care and success. 7. Discussed program curriculum outline and class needs based on individual goals. SMART Goals: 1. Pt would like to lower A1c to <7.0 by exercising 30 min daily and learning carbohydrate counting. Monitor/Evaluate: Anticipate excellent compliance. Pt will attend full DSME program. Basic Nutrition class scheduled for May 02.
== END ==
PROVIDERS: PCP Family Medicine; Referring Provider Family Medicine; Visit Provider Family Medicine
DX: E11.9 Type 2 diabetes mellitus without complications (principal); Z71.3 Dietary counseling and surveillance; Z79.84 Long term (current) use of oral hypoglycemic drugs
CPT/HCPCS: G0108

== ENCOUNTER → 2020-05-02 13:03 | Outpatient (CLI) | payer MEDICARE, BC, SELFPAY ==
--- NOTE | 2020-05-02 14:11 | DIET.PN ---
Diabetes: Healthy Eating 1 Intervention: ? Discussed pathophysiology of diabetes and impact of nutrition/diet on blood sugar control.? Discussed fed versus non-fed state.?? ? Reviewed importance of Balance, Variety, and Moderation. ? Discussed the effect of carbohydrates/protein/fat on blood sugar control.? ? Stressed importance of consistent carbohydrate intake at each meal and provided instructions for recommended servings/portions of carbohydrates/protein per meal. Provided educational material. ? Reviewed carbohydrate counting and measuring carbohydrate content via serving sizes and reading nutrition labels.? Provided handouts.?? ? Discussed the difference between simple versus complex carbohydrates and the effect of fiber on blood sugar control.? Discussed various methods to increase fiber content in diet. ? Discussed the plate method for creating more carbohydrate conscious balanced meals. ? Stressed importance of meal timing and not going >4-5 hours between meals. Encouraged adding protein to evening snack to support glucose control overnight. ? Discussed importance of making dietary habits part of lifestyle change.
== END ==
PROVIDERS: PCP Family Medicine; Referring Provider Family Medicine; Visit Provider Family Medicine
DX: E11.9 Type 2 diabetes mellitus without complications (principal); Z71.3 Dietary counseling and surveillance
CPT/HCPCS: G0109

== ENCOUNTER → 2020-05-30 12:35 | Outpatient (CLI) | payer MEDICARE, BC, SELFPAY ==
--- NOTE | 2020-05-30 13:41 | DIET.PN ---
Diabetes: Healthy Eating 2 Intervention: Fats effects on glucose, weight, heart disease, cholesterol Sat Vs Unsat Protein- animal and plant based options Low, med, high fat meats Sugar substitutes Sodium Health claims Grocery shopping guidelines Eating away from home Alcohol Sick day guidelines Ketone Testing
== END ==
PROVIDERS: PCP Family Medicine; Referring Provider Family Medicine; Visit Provider Family Medicine
DX: E11.9 Type 2 diabetes mellitus without complications (principal); Z71.3 Dietary counseling and surveillance
CPT/HCPCS: G0109

== ENCOUNTER → 2020-06-27 12:14 | Outpatient (CLI) | payer MEDICARE, BC, SELFPAY ==
--- NOTE | 2020-06-27 13:40 | DIET.PN ---
DIABETES Nutrition Initial Assessment:? ASSESS:?? Ms. Salguero is a 80 yof??referred for type 2 diabetes seen as part of DSME program. She has made several changes to her eating habits including cutting down on starches and including protein with meals and snacks. She recently started adding a small snacks for better glucose control during the night with improved results on fasting numbers. ??? LABS: Per pt report:? A1c: 7.2 ? MEDS:?? no change ? DIET: Per 24-hour recall:? eating less carbs, increased beans, nuts, flaxseed, proteins Eating Out: rarely Changes in Appetite: no change. Satisfied Nutrition Supplements: vitamin D, cinnamon ? Weight: 145lb Height: 66in BMI: ? 23.6 ? Exercise:? walking, weights, online workout videos NUTRITION DX 1. Altered Nutrition related labs related to impaired glucose metabolism, lack of previous exposure to accurate nutrition information as evidenced by pt report, dx of diabetes, previous diet high in refined carbohydrates.? INTERVENTION(s): 1. Reviewed pathophysiology of diabetes and impact of nutrition/diet on blood sugar control.? Discussed fed versus non-fed state.?? 2. Reviewd the effect of carbohydrates/protein/fat on blood sugar control.? Stressed importance of consistent carbohydrate intake at each meal and provided instructions for recommended servings/portions of carbohydrates/protein per meal. Provided pt with educational material. 3. Reviewed carbohydrate counting and measuring carbohydrate content via serving sizes and reading nutrition labels.? 4. Discussed the difference between simple versus complex carbohydrates and the effect of fiber on blood sugar control.? Discussed various methods to increase fiber content in diet. 5. Stressed importance of meal timing and not going >4-5 hours between meals. Encouraged adding protein to evening snack to support glucose control overnight. Patient agreeable. 6. Discussed healthy weight loss goals of 1-2lbs per week through diet and exercise.? Pt agreeable to walking at least 30 minutes daily. 7. Recommend monitoring fasting and alternating 2 hr PP mealtime glucose. MONITOR/EVALUATE: Anticipate good compliance.? follow-up scheduled for 2 month.
[2020-06-27 13:41] VITALS: BMI 23.3
== END ==
PROVIDERS: PCP Family Medicine; Referring Provider Family Medicine; Visit Provider Family Medicine
DX: E11.9 Type 2 diabetes mellitus without complications (principal); Z71.3 Dietary counseling and surveillance
CPT/HCPCS: G0109

== ENCOUNTER → 2020-08-29 10:23 | Outpatient (CLI) | payer MEDICARE, BC, SELFPAY ==
[2020-08-29] MEDS: COVID-19 VACC #1, MRNA(MOD) 100 MCG/0.5 ML VIAL IM (10:44)
== END ==
PROVIDERS: PCP Family Medicine; Visit Provider Internal Medicine
DX: Z23 Encounter for immunization (principal)
CPT/HCPCS: 0011A; 91301

== ENCOUNTER → 2020-09-13 08:28 | Outpatient (CLI) | payer MEDICARE, BC, SELFPAY ==
[2020-09-13 09:59] LABS: Add Manual Diff / Slide Review NO; Basophils Absolute Auto 100 /uL (0-100); Basophils Percent Auto 1.1 % (0-2); Eosinophils Absolute Auto 200 /uL (0-450); Eosinophils Percent Auto 3.1 % (2-4); Hematocrit 44.3 % (36-46); Hemoglobin 14.4 g/dL (12.0-16.0); Lymphocytes Absolute Auto 1400 /uL (1100-4500); Lymphocytes Percent Auto 22.4 % (25-40); Mean Corpuscular HGB Conc 32.4 % (30-36); Mean Corpuscular Hemoglobin 30.5 PG (26-34); Mean Corpuscular Volume 94.2 fL (80-100); Monocytes Absolute Auto 500 /uL (0-900); Monocytes Percent Auto 8.2 % (3-14); Neutrophils Absolute Auto 4100 /uL (1500-7000); Neutrophils Percent Auto 65.2 % (50-75); Platelet Count 213 X10^3/uL (150-400); Red Blood Cell Count 4.71 X10^6/uL (4.0-5.2); Red Cell Distribution Width 13.1 % (11.6-14.8); White Blood Cell Count 6.2 X10^3/uL (4.5-11.0)
[2020-09-13 10:07] LABS: Hemoglobin A1C% w Est Avg Glu 7.1 % (4.0-6.0)
[2020-09-13 10:11] LABS: Alanine Aminotransferase 9 IU/L (<35); Albumin 4.5 g/dL (3.5-5.0); Albumin Globulin Ratio 1.6 (1.0-2.8); Alkaline Phosphatase 45 U/L (38-126); Aspartate Aminotransferase 28 IU/L (14-36); BUN Creatinine Ratio 40.3 (6-22); Bilirubin Total 0.6 mg/dL (0.2-1.3); Blood Urea Nitrogen 25 mg/dL (7-17); Calcium 9.4 mg/dL (8.4-10.2); Carbon Dioxide 32 mmol/L (22-32); Chloride 102 mmol/L (98-107); Cholesterol 189 mg/dL (140-199); Estimated Glomerular Filt Rate > 60.0 mL/min (>60); Globulin 2.9 g/dL (1.7-4.1); Glucose 85 mg/dL (80-110); HDL Cholesterol 60 mg/dL (40-60); HEMOLYSIS < 15 (0-50); LDL Cholesterol Calculated 106 mg/dL (<100); Sodium 138 mmol/L (137-145); Total Protein 7.4 g/dL (6.3-8.2); Triglycerides 116 mg/dL (35-150)
[2020-09-13 10:27] LABS: Vitamin D 25 Hydroxy (D3) 47.7 ng/mL (30.0-100.0)
== END ==
PROVIDERS: PCP Family Medicine; Referring Provider Family Medicine; Visit Provider Family Medicine
DX: A60.00 Herpesviral infection of urogenital system, unspecified (principal); E11.9 Type 2 diabetes mellitus without complications; M85.80 Other specified disorders of bone density and structure, unspecified site; E78.5 Hyperlipidemia, unspecified
CPT/HCPCS: 36415; 80053; 80061; 82306; 83036; 85025

== ENCOUNTER → 2020-09-26 10:22 | Outpatient (CLI) | payer MEDICARE, BC, SELFPAY ==
[2020-09-26] MEDS: COVID-19 VACC #2, MRNA(MOD) 100 MCG/0.5 ML VIAL IM (10:36)
== END ==
PROVIDERS: PCP Family Medicine; Visit Provider Internal Medicine
DX: Z23 Encounter for immunization (principal)
CPT/HCPCS: 0012A; 91301

== ENCOUNTER 2021-01-22 10:10 | Emergency (ER) | payer MEDICARE, BC, SELFPAY ==
[2021-01-22 10:37] VITALS: BP 147/66; PULSE 70; RESP 14; TEMP 36.2; O2SAT 99
--- NOTE | 2021-01-22 11:37 | DI.RAD.S_ITS ---
PROCEDURE: XR CHEST 1V INDICATIONS: chest pain TECHNIQUE: One view of the chest was acquired. COMPARISON: None. FINDINGS: Surgical changes and devices: None. Lungs and pleura: Lungs are clear. No pleural effusions or pneumothorax. Mediastinum: Mediastinal contours appear normal. Heart size is normal. Bones and chest wall: No suspicious bony lesions. Overlying soft tissues appear unremarkable. IMPRESSION: No acute pulmonary process. Dictated by: Anna Diaz M.D. on 01/22/2021 at 12:28 Approved by: Anna Diaz M.D. on 01/22/2021 at 12:28
--- NOTE | 2021-01-22 11:40 | DI.CT.S_ITS ---
PROCEDURE: CT HEAD/BRAIN WO CON INDICATIONS: dizziness TECHNIQUE: Noncontrast 4.5 mm thick angled axial sections acquired from the foramen magnum to the vertex, with coronal and sagittal reformats. For radiation dose reduction, the following was used: automated exposure control, adjustment of mA and/or kV according to patient size. COMPARISON: [facility], CT, HEAD WITHOUT CONTRAST, 01/06/2008, 17:11. FINDINGS: Image quality: Excellent. CSF spaces: Basal cisterns are patent. No extra-axial fluid collections. The ventricles are symmetric in size and shape. Brain: No intracranial bleeds or masses. There is cerebral volume loss for age, with resultant ventricular and sulcal prominence. There are periventricular and deep white matter chronic small vessel ischemic changes. There is intracranial internal carotid artery atherosclerosis. Skull and face: Calvarium and visualized facial bones appear intact, without suspicious lesions. Bilateral intraocular lens replacements noted. Sinuses: Visualized sinuses and mastoids are clear. IMPRESSION: Atrophy and chronic ischemic change without acute hemorrhage or mass effect. Dictated by: Aman Kwan M.D. on 01/22/2021 at 11:08 Approved by: Aman Kwan M.D. on 01/22/2021 at 11:11
--- NOTE | 2021-01-22 13:50 | PC.NURSE ---
Patient does not complain of chest pain, dizziness, SOB. She has no known cardiac history. She does complain of dizziness for 3 weeks and post void retention pressure. She denies fever, rigors, or night sweats.
[2021-01-22 14:01] LABS: Alanine Aminotransferase 10 IU/L (<35); Albumin 4.6 g/dL (3.5-5.0); Albumin Globulin Ratio 1.4 (1.0-2.8); Alkaline Phosphatase 50 U/L (38-126); Aspartate Aminotransferase 28 IU/L (14-36); BUN Creatinine Ratio 30.9 (6-22); Bilirubin Total 0.6 mg/dL (0.2-1.3); Blood Urea Nitrogen 17 mg/dL (7-17); Calcium 10.1 mg/dL (8.4-10.2); Carbon Dioxide 29 mmol/L (22-32); Chloride 103 mmol/L (98-107); Creatine Kinase 58 U/L (30-135); Estimated Glomerular Filt Rate > 60.0 mL/min (>60); Globulin 3.2 g/dL (1.7-4.1); Glucose 107 mg/dL (80-110); HEMOLYSIS < 15 (0-50); Lipase 87 U/L (23-300); Potassium 4.2 mmol/L (3.4-5.1); Sodium 139 mmol/L (137-145); Total Protein 7.8 g/dL (6.3-8.2)
[2021-01-22 14:02] LABS: Magnesium 2.3 mg/dL (1.6-2.3)
[2021-01-22 14:04] LABS: Add Manual Diff / Slide Review NO; Basophils Absolute Auto 100 /uL (0-100); Basophils Percent Auto 0.8 % (0-2); Eosinophils Absolute Auto 200 /uL (0-450); Eosinophils Percent Auto 2.5 % (2-4); Hematocrit 42.7 % (36-46); Hemoglobin 14.1 g/dL (12.0-16.0); Lymphocytes Absolute Auto 1900 /uL (1100-4500); Lymphocytes Percent Auto 23.5 % (25-40); Mean Corpuscular HGB Conc 33.1 % (30-36); Mean Corpuscular Hemoglobin 30.7 PG (26-34); Mean Corpuscular Volume 92.8 fL (80-100); Monocytes Absolute Auto 700 /uL (0-900); Monocytes Percent Auto 8.4 % (3-14); Neutrophils Absolute Auto 5300 /uL (1500-7000); Neutrophils Percent Auto 64.8 % (50-75); Platelet Count 203 X10^3/uL (150-400); Red Blood Cell Count 4.61 X10^6/uL (4.0-5.2); Red Cell Distribution Width 13.4 % (11.6-14.8); White Blood Cell Count 8.1 X10^3/uL (4.5-11.0)
--- NOTE | 2021-01-22 14:10 | ED_ITS ---
HPI - Dizziness General Chief Complaint: Dizziness Stated Complaint: dizzy spells, increasing over 3 weeks Time Seen by Provider: 01/22/21 11:37 Source: patient and old records reviewed Mode of arrival: Ambulatory Limitations: no limitations History of Present Illness HPI Narrative: 80-year-old female comes in with complaint of dizziness she describes the room spinning particularly when she bends her head down or flexes her neck. Patient has not any syncope. She has had 3 weeks of symptoms which have been slowly worsening over time. She states initially they were brief. She had episode of about 4 hours today. There occasional. There is no specific provoking incident other than flexing her neck and looking down words. 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 This had to be repaired. She denies any numbness, tingling or weakness in extremities, no speech issues, no facial droop. She has had some chronic gait troubles and states she does use a walker when she goes more than a block. Her gait issues are not isolated to her vertigo symptoms. She has had some chronic issues with urinary hesitancy. She has had normal bowel movements. She has had no nausea or vomiting other GI symptoms. She does have a history of diabetes, arthritis, no prior strokes or heart attacks, she states she takes medication for hypertension and dyslipidemia has remote history of kidney stones. She denies any surgeries besides cornea cardiac. No tobacco, alcohol or illicit. Related Data Home Medications Medication Instructions Recorded Confirmed leflunomide 20 mg tablet 20 mg PO DAILY 12/02/17 09/19/20 hydroxychloroquine 200 mg tablet 200 mg PO DAILY 01/13/18 09/19/20 naproxen 500 mg tablet 500 mg PO QD-BID PRN 01/13/18 09/19/20 latanoprost 1 drp EYE-BOTH BEDTIME 03/03/18 09/19/20 timolol maleate 1 drp OPHTHALMIC (EYE) SEEINSTR 03/03/18 09/19/20 betamethasone dipropionate 0.05 % 1 applictn TOP BID 10/27/18 09/19/20 topical ointment cholecalciferol (vitamin D3) 50 2,000 unit PO DAILY 03/24/19 09/19/20 mcg (2,000 unit) capsule Previous Rx's Medication Instructions Recorded Disabled parking permit #1 ea 03/24/19 alendronate 35 mg tablet 35 mg PO QWEEK #12 tab 11/05/19 brimonidine 0.15 % eye drops 1 drp OPHTHALMIC (EYE) BID #10 ml 11/05/19 blood sugar diagnostic #100 each 02/14/20 acyclovir 5 % topical cream 1 applictn TOP 5XD 4 Days #5 gram 03/28/20 acyclovir 400 mg tablet 400 mg PO TID #42 tab 04/11/20 sitagliptin 100 mg tablet See Rx Instructions .ROUTE 08/22/20 .COMPLEX #90 tab insulin glargine 100 unit/mL (3 12 unit SUBCUT HS #1 ml 10/20/20 mL) subcutaneous pen atorvastatin 10 mg tablet See Rx Instructions .ROUTE 10/31/20 .COMPLEX #90 tablet canagliflozin 100 mg tablet 100 mg PO QAM #90 tab 10/31/20 glimepiride 2 mg tablet See Rx Instructions .ROUTE 10/31/20 .COMPLEX #270 tablet lisinopril 2.5 mg tablet See Rx Instructions .ROUTE 10/31/20 .COMPLEX #90 tablet meclizine 25 mg PO TID PRN #14 tab 01/22/21 Allergies Allergy/AdvReac Type Severity Reaction Status Date / Time metformin [METFORMIN] Allergy Unknown Verified 01/22/21 10:41 Penicillins [PENICILLINS] Allergy Unknown Verified 01/22/21 10:41 rofecoxib [ROFECOXIB] Allergy Unknown Verified 01/22/21 10:41 Sulfa (Sulfonamide Allergy Unknown Verified 01/22/21 10:41 Antibiotics) [SULFA (SULFONAMIDE ANTIBIOTICS)] methotrexate AdvReac Verified 01/22/21 10:41 Review of Systems Review of Systems ROS Unobtainable: All systems reviewed & are unremarkable except as noted in HPI and below Patient History Medical History Acute pain of right shoulder Alopecia (Unknown) Anemia (Unknown) Body posture problem Cataracts, bilateral (2016) Diabetes (Unknown) GERD (gastroesophageal reflux disease) (Unknown) Glaucoma (Unknown) Hyperlipemia (Unknown) Kidney stones (Unknown) Osteoarthritis (Unknown) Osteopenia after menopause PUD (peptic ulcer disease) (Unknown) Right foot injury Urinary retention with incomplete bladder emptying Surgical History History of tonsillectomy Hx of cataract surgery (2016) Social History Smoking Status: Never smoker second hand exposure: No alcohol intake: never substance use type: does not use eating out: rarely or never Type(s) of exercise: yoga Smoking Status: Never smoker Substance Use Type: does not use Exam Narrative Exam Narrative: GEN: well nourished, well appearing elderly female, alert and oriented x 3, patient appears to be in mild distress. HEENT: Atraumatic, pupils are equal round reactive to light, extraocular movements are intact, nares are clear, TMs are clear with no fluid, there is no conjunctival pallor. Throat is clear without any exudates, erythema, tonsillar enlargement or uvular deviation, no facial droop HEART: Regular rate and rhythm without murmur, clicks, rubs. Pulses are equal in upper and lower extremities LUNGS:Lungs clear to auscultation, no wheezes, rales, crackles, chest moves symmetrically ABD:bowel sounds normal, soft, non-tender, no guarding, rebound, rigidity, no masses noted, no hepatosplenomegaly :No CVA tenderness MSCL: Non-tender, no muscle atrophy, muscles strength 5/5 upper and lower extremities, full range of motion NEURO:CN 2-12 intact, sensation normal, finger nose finger test normal, heel taylor test normal SKIN: Rash, erythema other skin changes noted Initial Vital Signs Initial Vital Signs: Vital Signs Temperature 97.1 F L 01/22/21 10:37 Pulse Rate 70 01/22/21 10:37 Respiratory Rate 14 01/22/21 10:37 Blood Pressure 147/66 H 01/22/21 10:37 Pulse Oximetry 99 01/22/21 10:37 Scores NIH Stroke Scale Level of Conciousness: Alert, keenly responsive Ask month/age: Answers both questions correctly. Open/close eyes, close hand: Performs both tasks correctly Best gaze horizontal: Normal Visual lux: No visual loss Facial palsy: Normal symetrical movement Left arm drift: No drift for full 10 sec Right arm drift: No drift for full 10 sec Left leg drift: No drift for full 5 sec Right leg drift: No drift for full 5 sec Limb ataxia: Absent Sensory on face/arms/legs: Normal, no sensory loss Best language: No aphasia, normal Dysarthria: Normal Extinction or inattention: No abnormality Total NIH Stroke scale score: 0 Course Orders Ordered: ED Orders 01/22/21 11:37 XR chest 1V Stat EKG-12 Lead Stat 01/22/21 11:40 CT head/brain wo con Stat 01/22/21 13:30 Urine Microscopic Stat 01/22/21 13:35 Complete Blood Count AUTO DIFF Stat Comprehensive Metabolic Panel Stat Lipase Stat Magnesium Stat Troponin & CK Cardiac Panel Stat Vital Signs Vital signs: Vital Signs - 8 hr 01/22/21 14:55 Pulse Rate 68 Respiratory Rate 18 Blood Pressure 153/67 H Pulse Oximetry 98 MDM - Dizziness Lab Data Attestation: I reviewed the patient's lab results. Result diagrams: 01/22/21 13:35 01/22/21 13:35 Labs: Lab Results 01/22/21 01/22/21 01/22/21 Range/Units 13:30 13:35 13:35 WBC 8.1 (4.5-11.0) X10^3/uL RBC 4.61 (4.0-5.2) X10^6/uL Hgb 14.1 (12.0-16.0) g/dL Hct 42.7 (36-46) % MCV 92.8 (80-100) fL MCH 30.7 (26-34) PG MCHC 33.1 (30-36) % RDW 13.4 (11.6-14.8) % Plt Count 203 (150-400) X10^3/uL Neut % (Auto) 64.8 (50-75) % Lymph % (Auto) 23.5 L (25-40) % Elliott % (Auto) 8.4 (3-14) % Eos % (Auto) 2.5 (2-4) % Baso % (Auto) 0.8 (0-2) % Neut # (Auto) 5300 (2030-2763) /uL Lymph # (Auto) 1900 (3598-6321) /uL Elliott # (Auto) 700 (0-900) /uL Eos # (Auto) 200 (0-450) /uL Baso # (Auto) 100 (0-100) /uL Sodium 139 (137-145) mmol/L Potassium 4.2 (3.4-5.1) mmol/L Chloride 103 (98-107) mmol/L Carbon Dioxide 29 (22-32) mmol/L BUN 17 (7-17) mg/dL Creatinine 0.55 (0.52-1.04) mg/dL Estimated GFR > 60.0 (>60) mL/min BUN/Creatinine Ratio 30.9 H (6-22) Glucose 107 (80-110) mg/dL Calcium 10.1 (8.4-10.2) mg/dL Magnesium (1.6-2.3) mg/dL Total Bilirubin 0.6 (0.2-1.3) mg/dL AST 28 (14-36) IU/L ALT 10 (<35) IU/L Alkaline Phosphatase 50 (38-126) U/L Total Creatine Kinase 58 (30-135) U/L CK-MB (CK-2) TNP CK-MB (CK-2) Rel Index TNP Troponin I < 0.012 (0.01-0.034) ng/mL Total Protein 7.8 (6.3-8.2) g/dL Albumin 4.6 (3.5-5.0) g/dL Globulin 3.2 (1.7-4.1) g/dL Albumin/Globulin Ratio 1.4 (1.0-2.8) Lipase 87 (23-300) U/L Urine RBC 0-1/hpf (0-5/HPF) Urine WBC 1-5/hpf (0-5/HPF) Ur Squamous Epith Cells 0-1 /hpf (0-5/HPF) Urine Bacteria Occasional (0-1) (None) Ur Culture Indicated? Cult not indicated 01/22/21 Range/Units 13:35 WBC (4.5-11.0) X10^3/uL RBC (4.0-5.2) X10^6/uL Hgb (12.0-16.0) g/dL Hct (36-46) % MCV (80-100) fL MCH (26-34) PG MCHC (30-36) % RDW (11.6-14.8) % Plt Count (150-400) X10^3/uL Neut % (Auto) (50-75) % Lymph % (Auto) (25-40) % Elliott % (Auto) (3-14) % Eos % (Auto) (2-4) % Baso % (Auto) (0-2) % Neut # (Auto) (9426-5392) /uL Lymph # (Auto) (1720-8020) /uL Elliott # (Auto) (0-900) /uL Eos # (Auto) (0-450) /uL Baso # (Auto) (0-100) /uL Sodium (137-145) mmol/L Potassium (3.4-5.1) mmol/L Chloride (98-107) mmol/L Carbon Dioxide (22-32) mmol/L BUN (7-17) mg/dL Creatinine (0.52-1.04) mg/dL Estimated GFR (>60) mL/min BUN/Creatinine Ratio (6-22) Glucose (80-110) mg/dL Calcium (8.4-10.2) mg/dL Magnesium 2.3 (1.6-2.3) mg/dL Total Bilirubin (0.2-1.3) mg/dL AST (14-36) IU/L ALT (<35) IU/L Alkaline Phosphatase (38-126) U/L Total Creatine Kinase (30-135) U/L CK-MB (CK-2) CK-MB (CK-2) Rel Index Troponin I (0.01-0.034) ng/mL Total Protein (6.3-8.2) g/dL Albumin (3.5-5.0) g/dL Globulin (1.7-4.1) g/dL Albumin/Globulin Ratio (1.0-2.8) Lipase (23-300) U/L Urine RBC (0-5/HPF) Urine WBC (0-5/HPF) Ur Squamous Epith Cells (0-5/HPF) Urine Bacteria (None) Ur Culture Indicated? Urine Dip Bedside Urine Glucose 1000 mg/dl Bedside Urine Bilirubin - Negative Bedside Urine Ketone - Negative Urine Specific [place] 1.025 Bedside Urine Occult Blood +/- Bedside Urine pH 6 Bedside Urine Protein - Negative Bedside Urine Urobilinogen - Negative Bedside Urine Nitrite - Negative Bedside Urine Leukocytes - Negative Esterase Imaging Data CT scan - head: Radiologist's Impression: Chronic atrophy chronic ischemic changes but with no acute change today. Chest x-ray: Radiologist's Impression: No acute process. ECG Data Attestation: I personally reviewed and interpreted this ECG as follows: Prior ECG tracings: not available for review Interpretation: Sinus rhythm rate of 65 [place] 176 QRS [address] QTC 457. No acute ST elevation depression appreciated. MDM Narrative Medical decision making narrative: This an 80-year-old female comes in with complaint of vertigo type symptoms which have been increasing over the last 3 weeks. She has had some gait instability but states this does not seem to be isolated to her vertigo episodes. It is worsened when she flexes her neck. She does not have any other neurologic symptoms. Head CT shows some chronic ischemic changes which were reviewed with the patient. Her labs do not show any other acute findings and her neuro exam is negative today. After prescription for meclizine and referral to ENT for further follow-up. Discharge Plan Departure Patient Disposition: Home Clinical Impression: Vertigo Instructions: DI for Vertigo Activity Restrictions/Additional Instructions: Follow up with your physician, may be helpful to follow-up with ENT you appear to have vertigo today but do not have a clear cause identified You can try meclizine 1 tablet every 8 hours as needed for symptoms. This can help her symptoms but does not take it away completely. Prescription was sent to [facility]. Please return for severe headaches, passing out, rapidly worsening symptoms, per sistent vomiting, sudden vision changes, new numbness, tingling or weakness in your extremities inability to walk, new chest pain or shortness of breath or other new or concerning symptoms Prescriptions: New meclizine 25 mg tablet 25 mg PO TID PRN (Reason: dizziness) Qty: 14 RF: 0 No Action hydroxychloroquine 200 mg tablet 200 mg PO DAILY RF: 0 naproxen 500 mg tablet 500 mg PO QD-BID PRN (Reason: Pain, Mild) RF: 0 leflunomide 20 mg tablet 20 mg PO DAILY RF: 0 betamethasone dipropionate 0.05 % ointment 1 applictn TOP BID RF: 0 brimonidine 0.15 % drops 1 drp ophthalmic (eye) BID Qty: 10 RF: 0 alendronate 35 mg tablet 35 mg PO QWEEK Qty: 12 RF: 3 (DME) blood sugar diagnostic [Blood Glucose Test] Strip See Dose Instructions .ROUTE .MEDSUPPLY Qty: 100 RF: 11 acyclovir 5 % cream 1 applictn TOP 5XD 4 Days Qty: 5 RF: 5 acyclovir 400 mg tablet 400 mg PO TID Qty: 42 RF: 3 Januvia 100 mg tablet See Rx Instructions .ROUTE .COMPLEX Qty: 90 RF: 2 Basaglar KwikPen U-100 Insulin 100 unit/mL (3 mL) insulin pen 12 unit subcut HS Qty: 1 RF: 3 atorvastatin 10 mg tablet See Rx Instructions .ROUTE .COMPLEX Qty: 90 RF: 1 Invokana 100 mg tablet 100 mg PO QAM Qty: 90 RF: 1 glimepiride 2 mg tablet See Rx Instructions .ROUTE .COMPLEX Qty: 270 RF: 0 lisinopril 2.5 mg tablet See Rx Instructions .ROUTE .COMPLEX Qty: 90 RF: 1 cholecalciferol (vitamin D3) 2,000 unit capsule 2,000 unit PO DAILY RF: 0 (DME) Disabled parking permit Qty: 1 RF: 0 latanoprost 0.005 % drops 1 drp EYE-BOTH BEDTIME RF: 0 timolol maleate 0.5 % drops 1 drp ophthalmic (eye) SEEINSTR RF: 0 Referrals: Mikey Vo MD [Physician] - Dejuan Baltazar DO [Primary Care Provider] -
[2021-01-22 14:12] LABS: Troponin I < 0.012 ng/mL (0.01-0.034)
[2021-01-22 14:13] LABS: Bacteria Urine Occasional (0-1); Culture Indicated Urine Cult Not Indicated; RBC Urine 0-1/HPF (0-5/HPF); Squamous Epithelial Cell Urine 0-1 /HPF (0-5/HPF); WBC Urine 1-5/HPF (0-5/HPF)
[2021-01-22 14:55] VITALS: BP 153/67; PULSE 68; RESP 18; O2SAT 98
== END 2021-01-22 14:57 | disposition home or self-care (01) ==
PROVIDERS: Emergency Provider Emergency Medicine; PCP Family Medicine
DX: R42 Dizziness and giddiness (principal); R07.9 Chest pain, unspecified
CPT/HCPCS: 36415; 51798; 70450; 71045; 80053; 81003; 81015; 82550; 83690; 83735; 84484; 85025; 93005; 93010; 99284

== ENCOUNTER → 2021-03-22 07:20 | Outpatient (CLI) | payer MEDICARE, BC, SELFPAY ==
[2021-03-22 08:16] LABS: Add Manual Diff / Slide Review NO; Basophils Absolute Auto 0 /uL (0-100); Basophils Percent Auto 0.5 % (0-2); Eosinophils Absolute Auto 200 /uL (0-450); Hematocrit 42.4 % (36-46); Hemoglobin 13.8 g/dL (12.0-16.0); Lymphocytes Absolute Auto 1300 /uL (1100-4500); Mean Corpuscular HGB Conc 32.6 % (30-36); Mean Corpuscular Hemoglobin 30.7 PG (26-34); Monocytes Absolute Auto 700 /uL (0-900); Monocytes Percent Auto 9.4 % (3-14); Neutrophils Absolute Auto 5500 /uL (1500-7000); Neutrophils Percent Auto 70.1 % (50-75); Platelet Count 196 X10^3/uL (150-400); Red Blood Cell Count 4.51 X10^6/uL (4.0-5.2); Red Cell Distribution Width 13.3 % (11.6-14.8); White Blood Cell Count 7.8 X10^3/uL (4.5-11.0)
[2021-03-22 08:36] LABS: Hemoglobin A1C% w Est Avg Glu 6.4 % (4.0-6.0)
[2021-03-22 08:42] LABS: Cholesterol 176 mg/dL (140-199); HDL Cholesterol 60 mg/dL (40-60); LDL Cholesterol Calculated 86 mg/dL (<100); Triglycerides 149 mg/dL (35-150)
== END ==
PROVIDERS: PCP Family Medicine; Referring Provider Family Medicine; Visit Provider Family Medicine
DX: E11.9 Type 2 diabetes mellitus without complications (principal); E78.2 Mixed hyperlipidemia
CPT/HCPCS: 36415; 80061; 83036; 85025

== ENCOUNTER → 2021-09-18 07:48 | Outpatient (CLI) | payer MEDICARE, BC, SELFPAY ==
[2021-09-18 08:24] LABS: Add Manual Diff / Slide Review NO; Basophils Absolute Auto 100 /uL (0-100); Basophils Percent Auto 1.1 % (0-2); Eosinophils Absolute Auto 200 /uL (0-450); Eosinophils Percent Auto 3.2 % (2-4); Hematocrit 42.4 % (36-46); Hemoglobin 14.2 g/dL (12.0-16.0); Lymphocytes Absolute Auto 1100 /uL (1100-4500); Mean Corpuscular HGB Conc 33.5 % (30-36); Mean Corpuscular Hemoglobin 31.1 PG (26-34); Mean Corpuscular Volume 92.8 fL (80-100); Monocytes Absolute Auto 500 /uL (0-900); Monocytes Percent Auto 8.1 % (3-14); Neutrophils Absolute Auto 4200 /uL (1500-7000); Neutrophils Percent Auto 69.6 % (50-75); Platelet Count 207 X10^3/uL (150-400); Red Blood Cell Count 4.57 X10^6/uL (4.0-5.2); Red Cell Distribution Width 13.1 % (11.6-14.8)
[2021-09-18 08:30] LABS: Hemoglobin A1C% w Est Avg Glu 7.1 % (4.0-6.0)
[2021-09-18 08:36] LABS: Alanine Aminotransferase 9 IU/L (<35); Albumin 4.4 g/dL (3.5-5.0); Albumin Globulin Ratio 1.7 (1.0-2.8); Alkaline Phosphatase 43 U/L (38-126); Aspartate Aminotransferase 26 IU/L (14-36); BUN Creatinine Ratio 24.2 (6-22); Bilirubin Total 0.6 mg/dL (0.2-1.3); Blood Urea Nitrogen 16 mg/dL (7-17); Calcium 9.6 mg/dL (8.4-10.2); Carbon Dioxide 32 mmol/L (22-32); Chloride 103 mmol/L (98-107); Cholesterol 177 mg/dL (140-199); Estimated Glomerular Filt Rate > 60.0 mL/min (>60); Globulin 2.6 g/dL (1.7-4.1); Glucose 104 mg/dL (80-110); HDL Cholesterol 64 mg/dL (40-60); HEMOLYSIS < 15 (0-50); LDL Cholesterol Calculated 80 mg/dL (<100); Potassium 4.5 mmol/L (3.4-5.1); Sodium 138 mmol/L (137-145); Triglycerides 166 mg/dL (35-150)
== END ==
PROVIDERS: PCP Family Medicine; Referring Provider Family Medicine; Visit Provider Family Medicine
DX: E11.9 Type 2 diabetes mellitus without complications (principal); E78.2 Mixed hyperlipidemia
CPT/HCPCS: 36415; 80053; 80061; 83036; 85025

== ENCOUNTER → 2021-12-10 08:21 | Outpatient (CLI) | payer MEDICARE, BC, SELFPAY ==
[2021-12-10 09:55] LABS: Add Manual Diff / Slide Review NO; Basophils Absolute Auto 100 /uL (0-100); Basophils Percent Auto 1.3 % (0-2); Eosinophils Absolute Auto 100 /uL (0-450); Eosinophils Percent Auto 2.4 % (2-4); Hematocrit 39.3 % (36-46); Hemoglobin 12.8 g/dL (12.0-16.0); Lymphocytes Absolute Auto 1000 /uL (1100-4500); Lymphocytes Percent Auto 16.1 % (25-40); Mean Corpuscular HGB Conc 32.5 % (30-36); Mean Corpuscular Hemoglobin 30.4 PG (26-34); Mean Corpuscular Volume 93.4 fL (80-100); Monocytes Absolute Auto 600 /uL (0-900); Monocytes Percent Auto 9.3 % (3-14); Neutrophils Absolute Auto 4300 /uL (1500-7000); Neutrophils Percent Auto 70.9 % (50-75); Platelet Count 223 X10^3/uL (150-400); Red Blood Cell Count 4.21 X10^6/uL (4.0-5.2); Red Cell Distribution Width 13.6 % (11.6-14.8); White Blood Cell Count 6.1 X10^3/uL (4.5-11.0)
[2021-12-10 10:29] LABS: Alanine Aminotransferase 11 IU/L (<35); Albumin Globulin Ratio 1.6 (1.0-2.8); Alkaline Phosphatase 41 U/L (38-126); Aspartate Aminotransferase 25 IU/L (14-36); BUN Creatinine Ratio 27.8 (6-22); Bilirubin Total 0.3 mg/dL (0.2-1.3); Blood Urea Nitrogen 20 mg/dL (7-17); Calcium 9.2 mg/dL (8.4-10.2); Carbon Dioxide 31 mmol/L (22-32); Chloride 103 mmol/L (98-107); Estimated Glomerular Filt Rate > 60 mL/min (>60); Globulin 2.5 g/dL (1.7-4.1); Glucose 137 mg/dL (80-110); HEMOLYSIS < 15 (0-50); Potassium 4.9 mmol/L (3.4-5.1); Sodium 138 mmol/L (137-145); Total Protein 6.5 g/dL (6.3-8.2)
== END ==
PROVIDERS: PCP Family Medicine; Referring Provider Family Medicine; Visit Provider Family Medicine
DX: E11.9 Type 2 diabetes mellitus without complications (principal); E78.2 Mixed hyperlipidemia; K76.0 Fatty (change of) liver, not elsewhere classified
CPT/HCPCS: 36415; 80053; 83036; 85025

== ENCOUNTER → 2022-04-05 07:44 | Outpatient (CLI) | payer MEDICARE, BC, SELFPAY ==
[2022-04-05 09:19] LABS: Add Manual Diff / Slide Review NO; Basophils Absolute Auto 0 /uL (0-100); Basophils Percent Auto 0.8 % (0-2); Eosinophils Absolute Auto 200 /uL (0-450); Eosinophils Percent Auto 2.8 % (2-4); Hematocrit 41.8 % (36-46); Hemoglobin 13.8 g/dL (12.0-16.0); Lymphocytes Absolute Auto 900 /uL (1100-4500); Lymphocytes Percent Auto 17.7 % (25-40); Mean Corpuscular Hemoglobin 30.8 PG (26-34); Mean Corpuscular Volume 93.4 fL (80-100); Monocytes Absolute Auto 500 /uL (0-900); Neutrophils Absolute Auto 3700 /uL (1500-7000); Neutrophils Percent Auto 68.7 % (50-75); Platelet Count 204 X10^3/uL (150-400); Red Blood Cell Count 4.48 X10^6/uL (4.0-5.2); Red Cell Distribution Width 13.6 % (11.6-14.8); White Blood Cell Count 5.3 X10^3/uL (4.5-11.0)
[2022-04-05 09:20] LABS: Hemoglobin A1C% w Est Avg Glu 6.3 % (4.0-6.0)
[2022-04-05 09:39] LABS: Creatinine Urine Random 72.2 mg/dL
[2022-04-05 09:39] LABS: Alanine Aminotransferase 9 IU/L (<35); Albumin Globulin Ratio 1.5 (1.0-2.8); Alkaline Phosphatase 41 U/L (38-126); Aspartate Aminotransferase 23 IU/L (14-36); BUN Creatinine Ratio 30.8 (6-22); Bilirubin Total 0.6 mg/dL (0.2-1.3); Blood Urea Nitrogen 20 mg/dL (7-17); Calcium 8.9 mg/dL (8.4-10.2); Carbon Dioxide 30 mmol/L (22-32); Chloride 104 mmol/L (98-107); Cholesterol 166 mg/dL (140-199); Estimated Glomerular Filt Rate > 60 mL/min (>60); Globulin 2.6 g/dL (1.7-4.1); Glucose 85 mg/dL (80-110); HDL Cholesterol 60 mg/dL (40-60); HEMOLYSIS < 15 (0-50); LDL Cholesterol Calculated 83 mg/dL (<100); Potassium 4.4 mmol/L (3.4-5.1); Sodium 138 mmol/L (137-145); Total Protein 6.6 g/dL (6.3-8.2); Triglycerides 113 mg/dL (35-150)
[2022-04-05 09:43] LABS: Microalbumi Creatinin Ratio Ur 16.6 ug/mg CR (<30); Microalbumin Urine Random 1.2 mg/dL (0-1.6)
== END ==
PROVIDERS: PCP Family Medicine; Referring Provider Family Medicine; Visit Provider Family Medicine
DX: E11.9 Type 2 diabetes mellitus without complications (principal); E78.5 Hyperlipidemia, unspecified; K76.0 Fatty (change of) liver, not elsewhere classified
CPT/HCPCS: 36415; 80053; 80061; 82043; 82570; 83036; 85025

== ENCOUNTER → 2022-06-21 09:22 | Outpatient (CLI) | payer MEDICARE, BC, SELFPAY ==
--- NOTE | 2022-06-21 | DI.RAD.S_ITS ---
1PROCEDURE: XR KNEE RT 3V INDICATIONS: osteoarthritis of both knees TECHNIQUE: 3 views of the knee were acquired. COMPARISON: [facility], , KNEE 3V LEFT, 04/09/2016, 10:46. [facility], , KNEE 3V RIGHT, 10/18/2013, 15:21. FINDINGS: Bones: Moderate arthrosis, with suspected intra-articular body. This is worst in the patellofemoral joint. Patellar enthesophytes. The patellar slightly tilted. Findings are slightly progressed compared to 2013. Soft tissues: Small joint effusion. IMPRESSION: Moderate arthrosis, most severely affecting the patellofemoral compartment. Small joint effusion. Findings are slightly progressed compared to 2013. Dictated by: Delfino Monroe M.D. on 06/21/2022 at 10:40 Approved by: Delfino Monroe M.D. on 06/21/2022 at 10:42
--- NOTE | 2022-06-21 | DI.RAD.S_ITS ---
PROCEDURE: XR KNEE LT 3V INDICATIONS: osteoarthritis of both knees TECHNIQUE: 3 views of the knee were acquired. COMPARISON: [facility], , KNEE 3V LEFT, 04/09/2016, 10:46. [facility], , KNEE 3V RIGHT, 10/18/2013, 15:21. FINDINGS: Bones: Moderate to severe arthrosis, particularly involving the medial and patellofemoral compartments. Patellar enthesopathy. Osteophyte formation. 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 Findings are progressed slightly compared to 2016 imaging. Soft tissues: Small suspected joint effusion. IMPRESSION: Moderate to severe arthrosis, slightly progressed compared to 2016. Dictated by: Delfino Monroe M.D. on 06/21/2022 at 10:39 Approved by: Delfino Monroe M.D. on 06/21/2022 at 10:40
== END ==
PROVIDERS: Family Provider Family Medicine; PCP Family Medicine; Referring Provider Specialist/Technologist Athletic Trainer; Visit Provider Specialist/Technologist Athletic Trainer
DX: M17.0 Bilateral primary osteoarthritis of knee (principal)
CPT/HCPCS: 73562

== ENCOUNTER → 2022-07-22 09:04 | Outpatient (CLI) | payer MEDICARE, BC, SELFPAY ==
[2022-07-22 10:52] LABS: Hemoglobin A1C% w Est Avg Glu 6.8 % (4.0-6.0)
[2022-07-22 11:04] LABS: Alanine Aminotransferase 12 IU/L (<35); Albumin 4.5 g/dL (3.5-5.0); Albumin Globulin Ratio 1.6 (1.0-2.8); Alkaline Phosphatase 53 U/L (38-126); Aspartate Aminotransferase 27 IU/L (14-36); BUN Creatinine Ratio 32.1 (6-22); Bilirubin Total 0.7 mg/dL (0.2-1.3); Blood Urea Nitrogen 17 mg/dL (7-17); Calcium 9.5 mg/dL (8.4-10.2); Carbon Dioxide 31 mmol/L (22-32); Chloride 100 mmol/L (98-107); Cholesterol 181 mg/dL (140-199); Estimated Glomerular Filt Rate > 60 mL/min (>60); Globulin 2.9 g/dL (1.7-4.1); Glucose 66 mg/dL (80-110); HDL Cholesterol 71 mg/dL (40-60); HEMOLYSIS < 15 (0-50); LDL Cholesterol Calculated 88 mg/dL (<100); Potassium 4.6 mmol/L (3.4-5.1); Sodium 140 mmol/L (137-145); Total Protein 7.4 g/dL (6.3-8.2); Triglycerides 112 mg/dL (35-150)
== END ==
PROVIDERS: Family Provider Family Medicine; PCP Family Medicine; Referring Provider Family Medicine; Visit Provider Family Medicine
DX: E11.9 Type 2 diabetes mellitus without complications (principal); E78.2 Mixed hyperlipidemia; E11.649 Type 2 diabetes mellitus with hypoglycemia without coma
CPT/HCPCS: 36415; 80053; 80061; 83036

== ENCOUNTER 2022-10-23 13:45 | Outpatient (RCR) | payer MEDICARE, BC, SELFPAY ==
--- NOTE | 2022-06-19 15:40 | PT.OIE ---
Current Diagnoses Unsteadiness on feet (06/19/22) Other abnormalities of gait and mobility (06/19/22) Repeated falls (06/19/22) Past Medical History (Last Updated 05/03/22 @ 14:12 by Kaleb Baltazar DO) Acute pain of right shoulder Alopecia (Unknown) Anemia (Unknown) Balance problem Benign paroxysmal positional vertigo of left ear Body posture problem Cataracts, bilateral (2016) Cervical somatic dysfunction Cranial somatic dysfunction Diabetes (Unknown) Dry eyes, bilateral GERD (gastroesophageal reflux disease) (Unknown) Glaucoma (Unknown) Glucosuria Hyperlipemia (Unknown) Hypoglycemia associated with diabetes Kidney stones (Unknown) Lower urinary tract symptoms (LUTS) Onychomycosis Osteoarthritis (Unknown) Osteopenia after menopause Postmenopausal atrophic vaginitis PUD (peptic ulcer disease) (Unknown) Right foot injury Urinary retention with incomplete bladder emptying Uveitis Past Surgical History (Last Reviewed 05/29/21 @ 11:55 by Bala Potter MD) History of tonsillectomy Hx of cataract surgery (2016) Visit Care Team Role Provider Type Kaleb Baltazar DO Attending Provider Physician Family Provider Primary Care Provider Referring Provider Specialty: Family Practice Address: [address] [place] [address] Email: Physical Therapy Initial Evaluation PT-OP-A Visit Information Start: 06/19/22 14:27 Freq: Status: Active Protocol: Document 06/19/22 11:15 DCW (Rec: 06/19/22 14:29 DCW [id number]) Out-Patient Physical Therapy Visit Information Visit Information Visit Type Initial Evaluation Visit Start Time 11:15 Visit Stop Time 12:00 Total Visit Minutes 45 Visit Number 1 Number of METAL HANGING HELPER Visits 0 Evaluation Information Evaluation Date 06/19/22 PT-OP-B Current Condition Start: 06/19/22 14:27 Freq: Status: Active Protocol: Document 06/19/22 11:15 DCW (Rec: 06/19/22 15:40 DCW [id number]) Current Condition History of Current Condition Onset Date Multi-year history Current Complaints Falls, imbalance, weakness, knee pain History of Current Condition Pt is an 82 year old female presenting to skilled therapy following a balance screen at the [facility] a few months ago. Pt was found to display some balance deficiencies, and it was recommended that she follow-up with a more extensive balance evaluation. Pt additionally notes that she has fairly severe knee pain constantly, left worse than right. Did have a fall in her yard ~8 months ago, was not able to get herself up off the ground until her neighbor stopped by and was able to lift her up. Occasionally experiences dizziness, notes she recently went to the ED for it, which occurs usually when moving too fast, was referred to two different ENTs , no one was able to find a cause, but she admits she does not experience these symptoms often. Treatment Goals Patient/Caregiver Goals I just want to be able to easily care for myself. Personal Factors Other Personal Factors That May Effect Pt lives alone in a mother-in- Therapy/Recovery law suite with her daughter and son-in-law next door for assistance. Single floor, no stairs to enter. Occasionally uses FWW around the house, mainly when walking to the bathroom in the middle of the night. PT-OP-C Subjective Start: 06/19/22 14:27 Freq: Status: Active Protocol: Document 06/19/22 11:15 DCW (Rec: 06/19/22 15:40 DCW [id number]) OP-PT Subjective Patient Comments Patient Comments I'm 82, and I'm proud that I get myself around, and I want to be able to keep doing that. Patient Questionnaires ABC- Activity Specific Balance Confidence Scale ABC Score 40% ABC Functional Impairment 60 to <80% Impaired (Score 21- 40) Dizziness Handicap Inventory DHI Score 54% DHI Functional Impairment 40 to 59% Impaired (Score 40- 59) PT-OP-D Balance Start: 06/19/22 14:27 Freq: Status: Active Protocol: Document 06/19/22 11:15 DCW (Rec: 06/19/22 15:40 DCW [id number]) OP-PT Balance Assessment Sitting Balance Static Sitting Balance Ability Normal Dynamic Sitting Balance Ability Normal Standing Balance Static Standing Balance Ability Good Dynamic Standing Balance Ability Fair Device Used None Balance Tests Diaz Balance Test Diaz Balance Test Score 40/56 Diaz Impairment Rating 20 to 39% Impaired (Score 34- 44) Diaz Balance Assessment Evaluation Sitting to Standing Ability Independent w/out Hands Unsupported Stance Safely- 2 minutes Sitting Unsupported, Feet on Floor Safely- 2 minutes Standing to Sitting Ability Safely, Minimal Hand Use Transfer Ability Safely, Minimal Hand Use Unsupported Stance- Eyes Closed Supervision, 10 seconds Unsupported Stance- Eyes Open Independent, <30 seconds Reaching Forward Standing Safely, 5 inches Pick- Up Object From Floor Supervision Look Behind Shoulder - Standing Shifts Weight Unilateral Turning 360 Degrees Turns slowly, but safely Unsupported Stance, Alternating Feet on 2 Steps w/Minimum Assist Stair Unsupported Tandem Stance Small Step- 30 seconds Unilateral Leg Stance Lifts Leg/Unable to Hold Total Score Diaz Total Score (out of 56 points) 40 Diaz Impairment Rating 20 to 39% Impaired (Score 34- 44) Frances Fall Scale Copyright Permission PT-OP-E Functional Tests Start: 06/19/22 14:27 Freq: Status: Active Protocol: Document 06/19/22 11:15 DCW (Rec: 06/19/22 15:40 DCW [id number]) Functional Tests Dynamic Gait Index (DGI) Score 12 DGI Impairment Rating 40 to <60% Impaired (Score 10- 14) PT-OP-M Strength Start: 06/19/22 14:27 Freq: Status: Active Protocol: Document 06/19/22 11:15 DCW (Rec: 06/19/22 15:40 DCW [id number]) Hip Strength Hip Manual Muscle Testing Right Flexion (L2) 3+ Fair+ Abduction 3+ Fair+ Adduction 4- Good- Left Flexion (L2) 4- Good- Abduction 3+ Fair+ Adduction 4- Good- Knee Strength Knee Manual Muscle Testing Right Flexion (S2) 4 Good Extension (L3) 3 Fair Left Flexion (S2) 4- Good- Extension (L3) 3 Fair Ankle/Foot Strength Ankle and Foot Manual Muscle Testing Right Dorsiflexion (L4) 4 Good Left Dorsiflexion (L4) 4 Good PT-OP-T Assessment and Plan Start: 06/19/22 14:27 Freq: Status: Active Protocol: Document 06/19/22 11:15 DCW (Rec: 06/19/22 15:40 DCW [id number]) Physical Therapy Assessment Rehab Potential Rehabilitation Potential Good Evaluation Complexity Number of Personal Factors/Comorbidities 3 or More Number of Body Systems Impaired 3 Clinical Presentation at Evaluation Unstable Impairments Impairments Activity Tolerance,Balance, Functional Activities, Functional Mobility,Pain, Strength Goals Three Impairment Pt LE MMT between 3/5 and 4/5 bilaterally Mcc Goal (LTG) Pt LE MMT to score >4-/5 in all planes to demonstrate improved leg strength and stability to improve ability to perform floor transfers. LTG Duration 09/17/22 Two Impairment Pt presents as an increased falls risk, per Diaz (40/56) and DGI (07/27) Snow Ranger Goal (LTG) Pt to improve Diaz score by at least 6 points to 46/56 in order to demonstrate a decreased falls risk LTG Duration 09/17/22 One Impairment Pt does not have an appropriate home exercise program Short Term Goal (STG) Pt to be independent and compliant with an appropriate HEP STG Duration 07/19/22 Assessment Summary Assessment Pt presents with signs and symptoms consistent with referring diagnosis. Pt scores as a high falls risk, per DGI (07/27) and Diaz (40/56). Pt additionally demonstrates decreased lower extremity strength, which limits overall mobility and activity tolerance. Pt has had difficulty getting herself off the floor following a fall in the past, and should benefit from strengthening and transfer practice, as well as balance and gait training, pain management, and improving activity tolerance. Physical Therapy Plan Frequency and Duration Frequency of Treatment 2x/Week Plan of Care Start Date 06/19/22 Plan of Care End Date 09/17/22 Therapeutic Interventions Therapeutic Interventions Aquatic Therapy,Balance Training,Home Exercise Program ,Manual Therapy,Neuromuscular Re-education,Patient/Caregiver Education,Self-Care/Home Management,Soft Tissue Mobilization,Therapeutic Activities,Therapeutic Exercises Next Visit Focus/Plan Next Note Type Treatment Note Next Visit Plan Balance and gait training, LE strengthening
--- NOTE | 2022-06-19 15:41 | PT.OPPOC ---
Physical, Occupational & Speech Therapy At [facility] Current Diagnoses Unsteadiness on feet (06/19/22) Other abnormalities of gait and mobility (06/19/22) Repeated falls (06/19/22) Visit Care Team Role Provider Type Kaleb Baltazar DO Attending Provider Physician Family Provider Primary Care Provider Referring Provider Specialty: [facility] Practice Address: [address] [place] [address], [facility] Email: Plan Of Care PT-OP-T Assessment and Plan Start: 06/19/22 14:27 Freq: Status: Active Protocol: Document 06/19/22 11:15 DCW (Rec: 06/19/22 15:40 DCW [id number]) Physical Therapy Assessment Rehab Potential Rehabilitation Potential Good Evaluation Complexity Number of Personal Factors/Comorbidities 3 or More Number of Body Systems Impaired 3 Clinical Presentation at Evaluation Unstable Impairments Impairments Activity Tolerance,Balance, Functional Activities, Functional Mobility,Pain, Strength Goals Three Impairment Pt LE MMT between 3/5 and 4/5 bilaterally Gaming Pit Boss Goal (LTG) Pt LE MMT to score >4-/5 in all planes to demonstrate improved leg strength and stability to improve ability to perform floor transfers. LTG Duration 09/17/22 Two Impairment Pt presents as an increased falls risk, per Diaz (40/56) and DGI (07/27) Gaming Pit Boss Goal (LTG) Pt to improve Diaz score by at least 6 points to 46/56 in order to demonstrate a decreased falls risk LTG Duration 09/17/22 One Impairment Pt does not have an appropriate home exercise program Short Term Goal (STG) Pt to be independent and compliant with an appropriate HEP STG Duration 07/19/22 Assessment Summary Assessment Pt presents with signs and symptoms consistent with referring diagnosis. Pt scores as a high falls risk, per DGI (07/27) and Diaz (40/56). Pt additionally demonstrates decreased lower extremity strength, which limits overall mobility and activity tolerance. Pt has had difficulty getting herself off the floor following a fall in the past, and should benefit from strengthening and transfer practice, as well as balance and gait training, pain management, and improving activity tolerance. Physical Therapy Plan Frequency and Duration Frequency of Treatment 2x/Week Plan of Care Start Date 06/19/22 Plan of Care End Date 09/17/22 Therapeutic Interventions Therapeutic Interventions Aquatic Therapy,Balance Training,Home Exercise Program ,Manual Therapy,Neuromuscular Re-education,Patient/Caregiver Education,Self-Care/Home Management,Soft Tissue Mobilization,Therapeutic Activities,Therapeutic Exercises Next Visit Focus/Plan Next Note Type Treatment Note Next Visit Plan Balance and gait training, LE strengthening Plan of Care Dates Plan of Care Start Date 06/19/22 Plan of Care End Date 09/17/22 Electronically Signed by: Александр Segura, PT 06/19/22 [id number] If you are in agreement with this Plan of Care, please return a signed and dated copy. I have reviewed this Plan of Care and certify that the skilled therapy services above are required to meet the patient?s needs. Physician Signature Date Printed Name and Credentials Clinical Instructor Signature Printed Name and Credentials
--- NOTE | 2022-06-25 11:16 | PT.OTN ---
Current Diagnoses Unsteadiness on feet (06/25/22) Other abnormalities of gait and mobility (06/25/22) Repeated falls (06/25/22) Physical Therapy Treatment Note PT-OP-A Visit Information Start: 06/19/22 14:27 Freq: Status: Active Protocol: Document 06/25/22 10:30 DCW (Rec: 06/25/22 11:16 DCW [id number]) Out-Patient Physical Therapy Visit Information Visit Information Visit Type Treatment Note Visit Start Time 10:30 Visit Stop Time 11:15 Total Visit Minutes 45 Visit Number 2 Number of HRBP Visits 0 Evaluation Information Evaluation Date 06/19/22 PT-OP-B Current Condition Start: 06/19/22 14:27 Freq: Status: Active Protocol: Document 06/19/22 11:15 DCW (Rec: 06/19/22 15:40 DCW [id number]) Current Condition History of Current Condition Onset Date Multi-year history Current Complaints Falls, imbalance, weakness, knee pain History of Current Condition Pt is an 82 year old female presenting to skilled therapy following a balance screen at the [facility] a few months ago. Pt was found to display some balance deficiencies, and it was recommended that she follow-up with a more extensive balance evaluation. Pt additionally notes that she has fairly severe knee pain constantly, left worse than right. Did have a fall in her yard ~8 months ago, was not able to get herself up off the ground until her neighbor stopped by and was able to lift her up. Occasionally experiences dizziness, notes she recently went to the ED for it, which occurs usually when moving too fast, was referred to two different ENTs , no one was able to find a cause, but she admits she does not experience these symptoms often. Treatment Goals Patient/Caregiver Goals I just want to be able to easily care for myself. Personal Factors Other Personal Factors That May Effect Pt lives alone in a mother-in- Therapy/Recovery law suite with her daughter and son-in-law next door for assistance. Single floor, no stairs to enter. Occasionally uses FWW around the house, mainly when walking to the bathroom in the middle of the night. PT-OP-C Subjective Start: 06/19/22 14:27 Freq: Status: Active Protocol: Document 06/25/22 10:30 DCW (Rec: 06/25/22 11:16 DCW [id number]) OP-PT Subjective Patient Comments Patient Comments Pt reports she is doing pretty well today, but her knees are bothering her. PT-OP-D Balance Start: 06/19/22 14:27 Freq: Status: Active Protocol: Document 06/19/22 11:15 DCW (Rec: 06/19/22 15:40 DCW [id number]) OP-PT Balance Assessment Sitting Balance Static Sitting Balance Ability Normal Dynamic Sitting Balance Ability Normal Standing Balance Static Standing Balance Ability Good Dynamic Standing Balance Ability Fair Device Used None Balance Tests Diaz Balance Test Diaz Balance Test Score 40/56 Diaz Impairment Rating 20 to 39% Impaired (Score 34- 44) Diaz Balance Assessment Evaluation Sitting to Standing Ability Independent w/out Hands Unsupported Stance Safely- 2 minutes Sitting Unsupported, Feet on Floor Safely- 2 minutes Standing to Sitting Ability Safely, Minimal Hand Use Transfer Ability Safely, Minimal Hand Use Unsupported Stance- Eyes Closed Supervision, 10 seconds Unsupported Stance- Eyes Open Independent, <30 seconds Reaching Forward Standing Safely, 5 inches Pick- Up Object From Floor Supervision Look Behind Shoulder - Standing Shifts Weight Unilateral Turning 360 Degrees Turns slowly, but safely Unsupported Stance, Alternating Feet on 2 Steps w/Minimum Assist Stair Unsupported Tandem Stance Small Step- 30 seconds Unilateral Leg Stance Lifts Leg/Unable to Hold Total Score Diaz Total Score (out of 56 points) 40 Diaz Impairment Rating 20 to 39% Impaired (Score 34- 44) Frances Fall Scale Copyright Permission PT-OP-E Functional Tests Start: 06/19/22 14:27 Freq: Status: Active Protocol: Document 06/19/22 11:15 DCW (Rec: 06/19/22 15:40 DCW [id number]) Functional Tests Dynamic Gait Index (DGI) Score 07/27 DGI Impairment Rating 40 to <60% Impaired (Score 10- 14) PT-OP-M Strength Start: 06/19/22 14:27 Freq: Status: Active Protocol: Document 06/19/22 11:15 DCW (Rec: 06/19/22 15:40 DCW [id number]) Hip Strength Hip Manual Muscle Testing Right Flexion (L2) 3+ Fair+ Abduction 3+ Fair+ Adduction 4- Good- Left Flexion (L2) 4- Good- Abduction 3+ Fair+ Adduction 4- Good- Knee Strength Knee Manual Muscle Testing Right Flexion (S2) 4 Good Extension (L3) 3 Fair Left Flexion (S2) 4- Good- Extension (L3) 3 Fair Ankle/Foot Strength Ankle and Foot Manual Muscle Testing Right Dorsiflexion (L4) 4 Good Left Dorsiflexion (L4) 4 Good PT-OP-Q Treatments Start: 06/19/22 14:27 Freq: Status: Active Protocol: Document 06/25/22 10:30 DCW (Rec: 06/25/22 11:16 DCW [id number]) Cardio Equipment Recumbent Elliptical (Biodex) Duration (Minutes) 4 Resistance 3 Seat Position 9 Gym Equipment Shuttle Recovery Unilateral Squats Resistance 25# Shuttle Recovery Platform Stable Bilateral Squats Resistance 62# Shuttle Recovery Platform Stable Neuro Re-Education Treatment Balance Activities Head turns Details Gait with head turns Tilt Board Details DF/PF, Lateral Equipment @ rail Hurdles Details Hurdles/Foam SLS Details SLS Equipment @ rail Tandem Stance Details Tandem Stance Equipment @ rail PT-OP-T Assessment and Plan Start: 06/19/22 14:27 Freq: Status: Active Protocol: Document 06/25/22 10:30 DCW (Rec: 06/25/22 11:16 DCW [id number]) Physical Therapy Assessment Impairments Impairments Activity Tolerance,Balance, Functional Activities, Functional Mobility,Pain, Strength Goals Three Impairment Pt LE MMT between 3/5 and 4/5 bilaterally Customer Service Receptionist Goal (LTG) Pt LE MMT to score >4-/5 in all planes to demonstrate improved leg strength and stability to improve ability to perform floor transfers. LTG Duration 09/17/22 Two Impairment Pt presents as an increased falls risk, per Diaz (40/56) and DGI (07/27) Customer Service Receptionist Goal (LTG) Pt to improve Diaz score by at least 6 points to 46/56 in order to demonstrate a decreased falls risk LTG Duration 09/17/22 One Impairment Pt does not have an appropriate home exercise program Short Term Goal (STG) Pt to be independent and compliant with an appropriate HEP STG Duration 07/19/22 Assessment Summary Assessment Pt tolerated activity pretty well overall, but was limited in participation due to left knee pain. Responded well to verbal cues for balance/ stabilization. Physical Therapy Plan Frequency and Duration Frequency of Treatment 2x/Week Plan of Care Start Date 06/19/22 Plan of Care End Date 09/17/22 Therapeutic Interventions Therapeutic Interventions Aquatic Therapy,Balance Training,Home Exercise Program ,Manual Therapy,Neuromuscular Re-education,Patient/Caregiver Education,Self-Care/Home Management,Soft Tissue Mobilization,Therapeutic Activities,Therapeutic Exercises Next Visit Focus/Plan Next Note Type Treatment Note Next Visit Plan Balance and gait training, LE strengthening
--- NOTE | 2022-07-04 10:28 | PT.OTN ---
Current Diagnoses Unsteadiness on feet (07/04/22) Other abnormalities of gait and mobility (07/04/22) Repeated falls (07/04/22) Physical Therapy Treatment Note PT-OP-A Visit Information Start: 06/19/22 14:27 Freq: Status: Active Protocol: Document 07/04/22 09:49 TS (Rec: 07/04/22 10:32 TS [id number]) Out-Patient Physical Therapy Visit Information Visit Information Visit Type Treatment Note Visit Note CARLOS Ng lead treatment, supervised and directed by PRINCESS Herndon. Visit Start Time 09:50 Visit Stop Time 10:28 Total Visit Minutes 38 Visit Number 3 Number of PLASTICS FABRICATOR Visits 1 PT-OP-B Current Condition Start: 06/19/22 14:27 Freq: Status: Active Protocol: Document 06/19/22 11:15 DCW (Rec: 06/19/22 15:40 DCW [id number]) Current Condition History of Current Condition Onset Date Multi-year history Current Complaints Falls, imbalance, weakness, knee pain History of Current Condition Pt is an 82 year old female presenting to skilled therapy following a balance screen at the [facility] a few months ago. Pt was found to display some balance deficiencies, and it was recommended that she follow-up with a more extensive balance evaluation. Pt additionally notes that she has fairly severe knee pain constantly, left worse than right. Did have a fall in her yard ~8 months ago, was not able to get herself up off the ground until her neighbor stopped by and was able to lift her up. Occasionally experiences dizziness, notes she recently went to the ED for it, which occurs usually when moving too fast, was referred to two different ENTs , no one was able to find a cause, but she admits she does not experience these symptoms often. Treatment Goals Patient/Caregiver Goals I just want to be able to easily care for myself. Personal Factors Other Personal Factors That May Effect Pt lives alone in a mother-in- Therapy/Recovery law suite with her daughter and son-in-law next door for assistance. Single floor, no stairs to enter. Occasionally uses FWW around the house, mainly when walking to the bathroom in the middle of the night. PT-OP-C Subjective Start: 06/19/22 14:27 Freq: Status: Active Protocol: Document 07/04/22 09:49 TS (Rec: 07/04/22 10:32 TS [id number]) OP-PT Subjective Patient Comments Patient Comments PT reports she is having bilateral knee pain, is gettting worse. 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 Had an x ray about a week a two ago and reports her L knee has severe arthritis, R moderate arthritis. PT-OP-D Balance Start: 06/19/22 14:27 Freq: Status: Active Protocol: Document 06/19/22 11:15 DCW (Rec: 06/19/22 15:40 DCW [id number]) OP-PT Balance Assessment Sitting Balance Static Sitting Balance Ability Normal Dynamic Sitting Balance Ability Normal Standing Balance Static Standing Balance Ability Good Dynamic Standing Balance Ability Fair Device Used None Balance Tests Diaz Balance Test Diaz Balance Test Score 40/56 Diaz Impairment Rating 20 to 39% Impaired (Score 34- 44) Diaz Balance Assessment Evaluation Sitting to Standing Ability Independent w/out Hands Unsupported Stance Safely- 2 minutes Sitting Unsupported, Feet on Floor Safely- 2 minutes Standing to Sitting Ability Safely, Minimal Hand Use Transfer Ability Safely, Minimal Hand Use Unsupported Stance- Eyes Closed Supervision, 10 seconds Unsupported Stance- Eyes Open Independent, <30 seconds Reaching Forward Standing Safely, 5 inches Pick- Up Object From Floor Supervision Look Behind Shoulder - Standing Shifts Weight Unilateral Turning 360 Degrees Turns slowly, but safely Unsupported Stance, Alternating Feet on 2 Steps w/Minimum Assist Stair Unsupported Tandem Stance Small Step- 30 seconds Unilateral Leg Stance Lifts Leg/Unable to Hold Total Score Diaz Total Score (out of 56 points) 40 Diaz Impairment Rating 20 to 39% Impaired (Score 34- 44) Frances Fall Scale Copyright Permission PT-OP-E Functional Tests Start: 06/19/22 14:27 Freq: Status: Active Protocol: Document 06/19/22 11:15 DCW (Rec: 06/19/22 15:40 DCW [id number]) Functional Tests Dynamic Gait Index (DGI) Score 24 DGI Impairment Rating 40 to <60% Impaired (Score 10- 14) PT-OP-M Strength Start: 06/19/22 14:27 Freq: Status: Active Protocol: Document 06/19/22 11:15 DCW (Rec: 06/19/22 15:40 DCW [id number]) Hip Strength Hip Manual Muscle Testing Right Flexion (L2) 3+ Fair+ Abduction 3+ Fair+ Adduction 4- Good- Left Flexion (L2) 4- Good- Abduction 3+ Fair+ Adduction 4- Good- Knee Strength Knee Manual Muscle Testing Right Flexion (S2) 4 Good Extension (L3) 3 Fair Left Flexion (S2) 4- Good- Extension (L3) 3 Fair Ankle/Foot Strength Ankle and Foot Manual Muscle Testing Right Dorsiflexion (L4) 4 Good Left Dorsiflexion (L4) 4 Good PT-OP-Q Treatments Start: 06/19/22 14:27 Freq: Status: Active Protocol: Document 07/04/22 09:49 TS (Rec: 07/04/22 10:32 TS [id number]) Cardio Equipment Recumbent Stepper (Sci-Fit) Duration (Minutes) 5 Resistance 1.5 Seat Position 12 Neuro Re-Education Treatment Balance Activities Romberg w/foam Details HTs, HNs Equipment // bars Reps/Duration 4' Comments Improved balance with cues for glute and core act. CGA 15% Walking MArch Equipment // bars Reps/Duration 2x10' Comments Good knee height, cues for posture BWD Walk Surface flat Equipment // bars Reps/Duration 4x10' Comments Cues for WBOS, pt reports feeling more stable. Tandem Walk Equipment // bars Reps/Duration 2x10' Comments 1 to 2 handrail assist, cues for glute and core act. CGA- Skylar for x3 LOB Tilt Board Details DF/PF, Lateral Equipment // bars Reps/Duration 5' Comments Lateral much more challenging, some discomfort in L knee with weight shift. CGA-Skylar for LOB x2 Tandem Stance Surface flat Equipment // bars Reps/Duration 3' Comments Cues for glute and core act. PT-OP-T Assessment and Plan Start: 06/19/22 14:27 Freq: Status: Active Protocol: Document 07/04/22 09:49 TS (Rec: 07/04/22 10:32 TS [id number]) Physical Therapy Assessment Goals Three Impairment Pt LE MMT between 3/5 and 4/5 bilaterally Electric Tape Slitter Goal (LTG) Pt LE MMT to score >4-/5 in all planes to demonstrate improved leg strength and stability to improve ability to perform floor transfers. LTG Duration 09/17/22 Two Impairment Pt presents as an increased falls risk, per Diaz (40/56) and DGI (07/27) Usp Goal (LTG) Pt to improve Diaz score by at least 6 points to 46/56 in order to demonstrate a decreased falls risk LTG Duration 09/17/22 One Impairment Pt does not have an appropriate home exercise program Short Term Goal (STG) Pt to be independent and compliant with an appropriate HEP STG Duration 07/19/22 Assessment Summary Assessment Pt significantly improves balance with consistent cues for posture, core and glute act during balance ex. Pt required cues for WBOS during BWD walk, pt reported improved stability when ambulating. Her knee pain did not limit her this session but required decreased flexion on sci-fit for comfort. Pt will benefit from continued intervention to improve balance, strenght in LEs and appropriate HEP. Physical Therapy Plan Frequency and Duration Frequency of Treatment 2x/Week Plan of Care Start Date 06/19/22 Plan of Care End Date 09/17/22 Therapeutic Interventions Therapeutic Interventions Aquatic Therapy,Balance Training,Home Exercise Program ,Manual Therapy,Neuromuscular Re-education,Patient/Caregiver Education,Self-Care/Home Management,Soft Tissue Mobilization,Therapeutic Activities,Therapeutic Exercises Next Visit Focus/Plan Next Note Type Treatment Note Next Visit Plan Next treatment trial hs stretches, self-stm. Continue challenging balance with tandem walk, EC in corner w foam, hurdles. Establish HEP, heel raises, sit to stands, corner balance.
--- NOTE | 2022-07-09 10:29 | PT.OTN ---
Current Diagnoses Unsteadiness on feet (07/09/22) Other abnormalities of gait and mobility (07/09/22) Repeated falls (07/09/22) Physical Therapy Treatment Note PT-OP-A Visit Information Start: 06/19/22 14:27 Freq: Status: Active Protocol: Document 07/09/22 09:45 DCW (Rec: 07/09/22 10:29 DCW [id number]) Out-Patient Physical Therapy Visit Information Visit Information Visit Type Treatment Note Visit Start Time 09:45 Visit Stop Time 10:30 Total Visit Minutes 45 Visit Number 4 Number of PROGRAM SCHEDULER Visits 0 Evaluation Information Evaluation Date 06/19/22 PT-OP-B Current Condition Start: 06/19/22 14:27 Freq: Status: Active Protocol: Document 06/19/22 11:15 DCW (Rec: 06/19/22 15:40 DCW [id number]) Current Condition History of Current Condition Onset Date Multi-year history Current Complaints Falls, imbalance, weakness, knee pain History of Current Condition Pt is an 82 year old female presenting to skilled therapy following a balance screen at the [facility] a few months ago. Pt was found to display some balance deficiencies, and it was recommended that she follow-up with a more extensive balance evaluation. Pt additionally notes that she has fairly severe knee pain constantly, left worse than right. Did have a fall in her yard ~8 months ago, was not able to get herself up off the ground until her neighbor stopped by and was able to lift her up. Occasionally experiences dizziness, notes she recently went to the ED for it, which occurs usually when moving too fast, was referred to two different ENTs , no one was able to find a cause, but she admits she does not experience these symptoms often. Treatment Goals Patient/Caregiver Goals I just want to be able to easily care for myself. Personal Factors Other Personal Factors That May Effect Pt lives alone in a mother-in- Therapy/Recovery law suite with her daughter and son-in-law next door for assistance. Single floor, no stairs to enter. Occasionally uses FWW around the house, mainly when walking to the bathroom in the middle of the night. PT-OP-C Subjective Start: 06/19/22 14:27 Freq: Status: Active Protocol: Document 07/09/22 09:45 DCW (Rec: 07/09/22 10:29 DCW [id number]) OP-PT Subjective Patient Comments Patient Comments Pt feeling okay today, just slow, like usual. Admits her knees are not so good. PT-OP-D Balance Start: 06/19/22 14:27 Freq: Status: Active Protocol: Document 06/19/22 11:15 DCW (Rec: 06/19/22 15:40 DCW [id number]) OP-PT Balance Assessment Sitting Balance Static Sitting Balance Ability Normal Dynamic Sitting Balance Ability Normal Standing Balance Static Standing Balance Ability Good Dynamic Standing Balance Ability Fair Device Used None Balance Tests Diaz Balance Test Diaz Balance Test Score 40/56 Diaz Impairment Rating 20 to 39% Impaired (Score 34- 44) Diaz Balance Assessment Evaluation Sitting to Standing Ability Independent w/out Hands Unsupported Stance Safely- 2 minutes Sitting Unsupported, Feet on Floor Safely- 2 minutes Standing to Sitting Ability Safely, Minimal Hand Use Transfer Ability Safely, Minimal Hand Use Unsupported Stance- Eyes Closed Supervision, 10 seconds Unsupported Stance- Eyes Open Independent, <30 seconds Reaching Forward Standing Safely, 5 inches Pick- Up Object From Floor Supervision Look Behind Shoulder - Standing Shifts Weight Unilateral Turning 360 Degrees Turns slowly, but safely Unsupported Stance, Alternating Feet on 2 Steps w/Minimum Assist Stair Unsupported Tandem Stance Small Step- 30 seconds Unilateral Leg Stance Lifts Leg/Unable to Hold Total Score Diaz Total Score (out of 56 points) 40 Diaz Impairment Rating 20 to 39% Impaired (Score 34- 44) Frances Fall Scale Copyright Permission PT-OP-E Functional Tests Start: 06/19/22 14:27 Freq: Status: Active Protocol: Document 06/19/22 11:15 DCW (Rec: 06/19/22 15:40 DCW [id number]) Functional Tests Dynamic Gait Index (DGI) Score 07/27 DGI Impairment Rating 40 to <60% Impaired (Score 10- 14) PT-OP-M Strength Start: 06/19/22 14:27 Freq: Status: Active Protocol: Document 06/19/22 11:15 DCW (Rec: 06/19/22 15:40 DCW [id number]) Hip Strength Hip Manual Muscle Testing Right Flexion (L2) 3+ Fair+ Abduction 3+ Fair+ Adduction 4- Good- Left Flexion (L2) 4- Good- Abduction 3+ Fair+ Adduction 4- Good- Knee Strength Knee Manual Muscle Testing Right Flexion (S2) 4 Good Extension (L3) 3 Fair Left Flexion (S2) 4- Good- Extension (L3) 3 Fair Ankle/Foot Strength Ankle and Foot Manual Muscle Testing Right Dorsiflexion (L4) 4 Good Left Dorsiflexion (L4) 4 Good PT-OP-Q Treatments Start: 06/19/22 14:27 Freq: Status: Active Protocol: Document 07/09/22 09:45 DCW (Rec: 07/09/22 10:29 DCW [id number]) Cardio Equipment Recumbent Stepper (Sci-Fit) Duration (Minutes) 5 Resistance 3 Seat Position 10 Gym Equipment Shuttle Recovery Unilateral Squats Resistance 25# Shuttle Recovery Platform Stable Bilateral Squats Resistance 62# Shuttle Recovery Platform Stable Therapeutic Exercises Standing Exercises Hip Extension Standing Exercise Name Extension Side bilateral Resistance Red Equipment Used // bars Hip Abduction Standing Exercise Name Abduction Side bilateral Resistance Red Equipment Used // bars Neuro Re-Education Treatment Balance Activities Head turns Details Gait with head turns Comments Horizontal/Vertical head turns Tilt Board Details DF/PF, Lateral Equipment // bars Hurdles Details Hurdles/Foam Comments UE assist on // bars as needed SLS Details SLS Equipment // bars Tandem Stance Details Tandem Stance Equipment // bars PT-OP-T Assessment and Plan Start: 06/19/22 14:27 Freq: Status: Active Protocol: Document 07/09/22 09:45 DCW (Rec: 07/09/22 10:29 DCW [id number]) Physical Therapy Assessment Impairments Impairments Activity Tolerance,Balance, Functional Activities, Functional Mobility,Pain, Strength Goals Three Impairment Pt LE MMT between 3/5 and 4/5 bilaterally Senior Care Goal (LTG) Pt LE MMT to score >4-/5 in all planes to demonstrate improved leg strength and stability to improve ability to perform floor transfers. LTG Duration 09/17/22 Two Impairment Pt presents as an increased falls risk, per Diaz (40/56) and DGI (07/27) Emg Technician Goal (LTG) Pt to improve Diaz score by at least 6 points to 46/56 in order to demonstrate a decreased falls risk LTG Duration 09/17/22 One Impairment Pt does not have an appropriate home exercise program Short Term Goal (STG) Pt to be independent and compliant with an appropriate HEP STG Duration 07/19/22 Assessment Summary Assessment Pt showing good carry-over with posture training when trying to perform balance challenges, but if not focused on it, returns to her normal forward posture fairly consistently. Physical Therapy Plan Frequency and Duration Frequency of Treatment 2x/Week Plan of Care Start Date 06/19/22 Plan of Care End Date 09/17/22 Therapeutic Interventions Therapeutic Interventions Aquatic Therapy,Balance Training,Home Exercise Program ,Manual Therapy,Neuromuscular Re-education,Patient/Caregiver Education,Self-Care/Home Management,Soft Tissue Mobilization,Therapeutic Activities,Therapeutic Exercises Next Visit Focus/Plan Next Note Type Treatment Note Next Visit Plan HS stretches, self-stm. Continue challenging balance with tandem walk, EC in corner w foam, hurdles. Establish HEP, heel raises, sit to stands, corner balance.
--- NOTE | 2022-07-12 14:38 | PT.OTN ---
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 PT-OP-B Current Condition Start: 06/19/22 14:27 Freq: Status: Active Protocol: Document 06/19/22 11:15 DCW (Rec: 06/19/22 15:40 DCW [id number]) Current Condition History of Current Condition Onset Date Multi-year history Current Complaints Falls, imbalance, weakness, knee pain History of Current Condition Pt is an 82 year old female presenting to skilled therapy following a balance screen at the [facility] a few months ago. Pt was found to display some balance deficiencies, and it was recommended that she follow-up with a more extensive balance evaluation. Pt additionally notes that she has fairly severe knee pain constantly, left worse than right. Did have a fall in her yard ~8 months ago, was not able to get herself up off the ground until her neighbor stopped by and was able to lift her up. Occasionally experiences dizziness, notes she recently went to the ED for it, which occurs usually when moving too fast, was referred to two different ENTs , no one was able to find a cause, but she admits she does not experience these symptoms often. Treatment Goals Patient/Caregiver Goals I just want to be able to easily care for myself. Personal Factors Other Personal Factors That May Effect Pt lives alone in a mother-in- Therapy/Recovery law suite with her daughter and son-in-law next door for assistance. Single floor, no stairs to enter. Occasionally uses FWW around the house, mainly when walking to the bathroom in the middle of the night. PT-OP-C Subjective Start: 06/19/22 14:27 Freq: Status: Active Protocol: Document 07/12/22 13:52 SP (Rec: 07/12/22 14:38 SP [id number]) OP-PT Subjective Patient Comments Patient Comments Pt reports L knee still bothersome and affects amount of walking she can do. She states compliant with standing HEP: hip ext, abd, heel raises. PT-OP-D Balance Start: 06/19/22 14:27 Freq: Status: Active Protocol: Document 06/19/22 11:15 DCW (Rec: 06/19/22 15:40 DCW [id number]) OP-PT Balance Assessment Sitting Balance Static Sitting Balance Ability Normal Dynamic Sitting Balance Ability Normal Standing Balance Static Standing Balance Ability Good Dynamic Standing Balance Ability Fair Device Used None Balance Tests Diaz Balance Test Diaz Balance Test Score 40/56 Diaz Impairment Rating 20 to 39% Impaired (Score 34- 44) Diaz Balance Assessment Evaluation Sitting to Standing Ability Independent w/out Hands Unsupported Stance Safely- 2 minutes Sitting Unsupported, Feet on Floor Safely- 2 minutes Standing to Sitting Ability Safely, Minimal Hand Use Transfer Ability Safely, Minimal Hand Use Unsupported Stance- Eyes Closed Supervision, 10 seconds Unsupported Stance- Eyes Open Independent, <30 seconds Reaching Forward Standing Safely, 5 inches Pick- Up Object From Floor Supervision Look Behind Shoulder - Standing Shifts Weight Unilateral Turning 360 Degrees Turns slowly, but safely Unsupported Stance, Alternating Feet on 2 Steps w/Minimum Assist Stair Unsupported Tandem Stance Small Step- 30 seconds Unilateral Leg Stance Lifts Leg/Unable to Hold Total Score Diaz Total Score (out of 56 points) 40 Diaz Impairment Rating 20 to 39% Impaired (Score 34- 44) Frances Fall Scale Copyright Permission PT-OP-E Functional Tests Start: 06/19/22 14:27 Freq: Status: Active Protocol: Document 06/19/22 11:15 DCW (Rec: 06/19/22 15:40 DCW [id number]) Functional Tests Dynamic Gait Index (DGI) Score 24 DGI Impairment Rating 40 to <60% Impaired (Score 10- 14) PT-OP-M Strength Start: 06/19/22 14:27 Freq: Status: Active Protocol: Document 06/19/22 11:15 DCW (Rec: 06/19/22 15:40 DCW [id number]) Hip Strength Hip Manual Muscle Testing Right Flexion (L2) 3+ Fair+ Abduction 3+ Fair+ Adduction 4- Good- Left Flexion (L2) 4- Good- Abduction 3+ Fair+ Adduction 4- Good- Knee Strength Knee Manual Muscle Testing Right Flexion (S2) 4 Good Extension (L3) 3 Fair Left Flexion (S2) 4- Good- Extension (L3) 3 Fair Ankle/Foot Strength Ankle and Foot Manual Muscle Testing Right Dorsiflexion (L4) 4 Good Left Dorsiflexion (L4) 4 Good PT-OP-Q Treatments Start: 06/19/22 14:27 Freq: Status: Active Protocol: Document 07/12/22 13:52 SP (Rec: 07/12/22 14:38 SP [id number]) Cardio Equipment Recumbent Stepper (Sci-Fit) Duration (Minutes) 5 Resistance 3 Seat Position 10 Other 0.76 miles, 49 PRM Gym Equipment Shuttle Recovery Unilateral Squats Details LLE 25# 100-180 deg painfree, RLE 37# Resistance 25# Shuttle Recovery Platform Stable Reps/Time x20 reps Bilateral Squats Details 100- 180 deg L knee painfree range Resistance 62#> 75# (limited range to allow pain free L knee) Shuttle Recovery Platform Stable Reps/Time x20 Therapeutic Exercises Standing Exercises heel raises Standing Exercise Name heel/toe raises: reviewed a self HEP from prior class Resistance AROM heel lift then toe lift ( no lean back during toe raise) Equipment Used rail support safety Reps/Minutes 5 reps Comments good feedback strength for calves, cued tall posture, stable trunk resisted side stepping Standing Exercise Name added to HEP Resistance Tb #2 loop at mid taylor (don/ doff in sitting) Equipment Used rail contact for stability needed Reps/Minutes 15 ft x3 lap Comments cued trial LE foot clearance return, tall posture, TA fac Hip Extension Standing Exercise Name Extension- HEP reviewed Side bilateral Resistance TB #2 loop at ankles, (don/ doff in sitting) Equipment Used rail Reps/Minutes x10 Comments cued posture/ TA no SB or trunk sways Hip Abduction Standing Exercise Name Abduction- HEP reviewed Side bilateral Resistance TB #2 loop at ankles, (don/ doff in sitting) Equipment Used rail Reps/Minutes x10 Comments cued posture/ TA no SB or trunk sways Neuro Re-Education Treatment Balance Activities corner balance Details initiated in PT- assess if can do as HEP at home in future Surface firm Equipment corner at back ,chair front Reps/Duration 8 min Comments 1. NBOS: HTs- stable, EC little sways no LOB 10 sec 2. Semi tandem stance- HTs little sways no LOB, cued look at objects when turning head slowly, tall posture, core and glut fac, improved stability little more - pt felt good to work on in PT but for now but not ready for home confidence yet. PT-OP-T Assessment and Plan Start: 06/19/22 14:27 Freq: Status: Active Protocol: Document 07/12/22 13:52 SP (Rec: 07/12/22 14:38 SP [id number]) Physical Therapy Assessment Goals Three Impairment Pt LE MMT between 3/5 and 4/5 bilaterally Correction Goal (LTG) Pt LE MMT to score >4-/5 in all planes to demonstrate improved leg strength and stability to improve ability to perform floor transfers. LTG Duration 09/17/22 Two Impairment Pt presents as an increased falls risk, per Diaz (40/56) and DGI (07/27) Correction Goal (LTG) Pt to improve Diaz score by at least 6 points to 46/56 in order to demonstrate a decreased falls risk LTG Duration 09/17/22 One Impairment Pt does not have an appropriate home exercise program Short Term Goal (STG) Pt to be independent and compliant with an appropriate HEP STG Duration 07/19/22 Assessment Summary Assessment Pt improved alignment during resisted side stepping, added to HEP. Improved work out increase resistance to shuttle recovery bilateral squat but limited ROM to allow muscle work and less/no L knee pain. Pt no c/o L knee pain end tx. Physical Therapy Plan Frequency and Duration Frequency of Treatment 2x/Week Plan of Care Start Date 06/19/22 Plan of Care End Date 09/17/22 Therapeutic Interventions Therapeutic Interventions Aquatic Therapy,Balance Training,Home Exercise Program ,Manual Therapy,Neuromuscular Re-education,Patient/Caregiver Education,Self-Care/Home Management,Soft Tissue Mobilization,Therapeutic Activities,Therapeutic Exercises Next Visit Focus/Plan Next Note Type Treatment Note Next Visit Plan HS stretches, self-stm. Continue challenging balance with tandem walk, EC in corner w foam, hurdles, work toward add corner floor HEP. Establish HEP, heel raises, sit to stands, corner balance.
--- NOTE | 2022-07-15 10:33 | PT.OTN ---
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 PT-OP-B Current Condition Start: 06/19/22 14:27 Freq: Status: Active Protocol: Document 06/19/22 11:15 DCW (Rec: 06/19/22 15:40 DCW [id number]) Current Condition History of Current Condition Onset Date Multi-year history Current Complaints Falls, imbalance, weakness, knee pain History of Current Condition Pt is an 82 year old female presenting to skilled therapy following a balance screen at the [facility] a few months ago. Pt was found to display some balance deficiencies, and it was recommended that she follow-up with a more extensive balance evaluation. Pt additionally notes that she has fairly severe knee pain constantly, left worse than right. Did have a fall in her yard ~8 months ago, was not able to get herself up off the ground until her neighbor stopped by and was able to lift her up. Occasionally experiences dizziness, notes she recently went to the ED for it, which occurs usually when moving too fast, was referred to two different ENTs , no one was able to find a cause, but she admits she does not experience these symptoms often. Treatment Goals Patient/Caregiver Goals I just want to be able to easily care for myself. Personal Factors Other Personal Factors That May Effect Pt lives alone in a mother-in- Therapy/Recovery law suite with her daughter and son-in-law next door for assistance. Single floor, no stairs to enter. Occasionally uses FWW around the house, mainly when walking to the bathroom in the middle of the night. PT-OP-C Subjective Start: 06/19/22 14:27 Freq: Status: Active Protocol: Document 07/15/22 09:45 DCW (Rec: 07/15/22 10:32 DCW [id number]) OP-PT Subjective Patient Comments Patient Comments My knees typically bother me at some point every day. Normally better in the morning , but the more I stand on them , the worse it gets. PT-OP-D Balance Start: 06/19/22 14:27 Freq: Status: Active Protocol: Document 06/19/22 11:15 DCW (Rec: 06/19/22 15:40 DCW [id number]) OP-PT Balance Assessment Sitting Balance Static Sitting Balance Ability Normal Dynamic Sitting Balance Ability Normal Standing Balance Static Standing Balance Ability Good Dynamic Standing Balance Ability Fair Device Used None Balance Tests Diaz Balance Test Diaz Balance Test Score 40/56 Diaz Impairment Rating 20 to 39% Impaired (Score 34- 44) Diaz Balance Assessment Evaluation Sitting to Standing Ability Independent w/out Hands Unsupported Stance Safely- 2 minutes Sitting Unsupported, Feet on Floor Safely- 2 minutes Standing to Sitting Ability Safely, Minimal Hand Use Transfer Ability Safely, Minimal Hand Use Unsupported Stance- Eyes Closed Supervision, 10 seconds Unsupported Stance- Eyes Open Independent, <30 seconds Reaching Forward Standing Safely, 5 inches Pick- Up Object From Floor Supervision Look Behind Shoulder - Standing Shifts Weight Unilateral Turning 360 Degrees Turns slowly, but safely Unsupported Stance, Alternating Feet on 2 Steps w/Minimum Assist Stair Unsupported Tandem Stance Small Step- 30 seconds Unilateral Leg Stance Lifts Leg/Unable to Hold Total Score Diaz Total Score (out of 56 points) 40 Diaz Impairment Rating 20 to 39% Impaired (Score 34- 44) Frances Fall Scale Copyright Permission PT-OP-E Functional Tests Start: 06/19/22 14:27 Freq: Status: Active Protocol: Document 06/19/22 11:15 DCW (Rec: 06/19/22 15:40 DCW [id number]) Functional Tests Dynamic Gait Index (DGI) Score 24 DGI Impairment Rating 40 to <60% Impaired (Score 10- 14) PT-OP-M Strength Start: 06/19/22 14:27 Freq: Status: Active Protocol: Document 06/19/22 11:15 DCW (Rec: 06/19/22 15:40 DCW [id number]) Hip Strength Hip Manual Muscle Testing Right Flexion (L2) 3+ Fair+ Abduction 3+ Fair+ Adduction 4- Good- Left Flexion (L2) 4- Good- Abduction 3+ Fair+ Adduction 4- Good- Knee Strength Knee Manual Muscle Testing Right Flexion (S2) 4 Good Extension (L3) 3 Fair Left Flexion (S2) 4- Good- Extension (L3) 3 Fair Ankle/Foot Strength Ankle and Foot Manual Muscle Testing Right Dorsiflexion (L4) 4 Good Left Dorsiflexion (L4) 4 Good PT-OP-Q Treatments Start: 06/19/22 14:27 Freq: Status: Active Protocol: Document 07/15/22 09:45 DCW (Rec: 07/15/22 10:32 DCW [id number]) Cardio Equipment Recumbent Elliptical ([employer]) Duration (Minutes) 5 Resistance 5 Seat Position 10 Gym Equipment Shuttle Recovery Unilateral Squats Details 100-180 deg L knee painfree Resistance 25# L, 37# R Shuttle Recovery Platform Stable Reps/Time x20 reps Bilateral Squats Details 100- 180 deg L knee painfree Resistance 75# (limited range to allow pain free L knee) Shuttle Recovery Platform Stable Reps/Time x20 Therapeutic Exercises Sitting Exercises Ankle Flexion Sitting Exercise Name DF Side bilateral Resistance Lv 2 Standing Exercises heel raises Standing Exercise Name heel/toe raises Resistance AROM heel lift then toe lift ( no lean back during toe raise) Equipment Used rail support safety Reps/Minutes 5 reps Hip Extension Standing Exercise Name Extension Side bilateral Resistance Red Equipment Used // bars Hip Abduction Standing Exercise Name Abduction Side bilateral Resistance Red Equipment Used // bars Therapeutic Activity Therapeutic Activity Floor Transfers Comments Floor transfer prep, supine-> quadruped on mat table Neuro Re-Education Treatment Balance Activities corner balance Details Review for potential HEP Surface firm Equipment corner at back ,chair front Comments 1. NBOS: HTs- stable, EC 2. Semi tandem stance 3. Tamdem Stance 4. SLS Continue to practice in PT prior to performing for HEP Tilt Board Details DF/PF, Lateral Equipment // bars PT-OP-T Assessment and Plan Start: 06/19/22 14:27 Freq: Status: Active Protocol: Document 07/15/22 09:45 DCW (Rec: 07/15/22 10:32 DCW [id number]) Physical Therapy Assessment Impairments Impairments Activity Tolerance,Balance, Functional Activities, Functional Mobility,Pain, Strength Goals Three Impairment Pt LE MMT between 3/5 and 4/5 bilaterally Cable Systems Installer Goal (LTG) Pt LE MMT to score >4-/5 in all planes to demonstrate improved leg strength and stability to improve ability to perform floor transfers. LTG Duration 09/17/22 Two Impairment Pt presents as an increased falls risk, per Diaz (40/56) and DGI (07/27) Long-Term Goal (LTG) Pt to improve Diaz score by at least 6 points to 46/56 in order to demonstrate a decreased falls risk LTG Duration 09/17/22 One Impairment Pt does not have an appropriate home exercise program Short Term Goal (STG) Pt to be independent and compliant with an appropriate HEP STG Duration 07/19/22 Assessment Summary Assessment Trial of initial floor transfers, transition from supine to quadruped, pt able to perform, however reported it was quite painful on her knees. Otherwise did well with activity today, some mild complaints of knee pain on leg press, improving with balance challenges. Physical Therapy Plan Frequency and Duration Frequency of Treatment 2x/Week Plan of Care Start Date 06/19/22 Plan of Care End Date 09/17/22 Therapeutic Interventions Therapeutic Interventions Aquatic Therapy,Balance Training,Home Exercise Program ,Manual Therapy,Neuromuscular Re-education,Patient/Caregiver Education,Self-Care/Home Management,Soft Tissue Mobilization,Therapeutic Activities,Therapeutic Exercises Next Visit Focus/Plan Next Note Type Treatment Note Next Visit Plan HS stretches, self-stm. Continue challenging balance with tandem walk, EC in corner w foam, hurdles, work toward add corner floor HEP. Establish HEP, heel raises, sit to stands, corner balance.
--- NOTE | 2022-07-17 09:00 | PT.OTN ---
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 PT-OP-B Current Condition Start: 06/19/22 14:27 Freq: Status: Active Protocol: Document 06/19/22 11:15 DCW (Rec: 06/19/22 15:40 DCW [id number]) Current Condition History of Current Condition Onset Date Multi-year history Current Complaints Falls, imbalance, weakness, knee pain History of Current Condition Pt is an 82 year old female presenting to skilled therapy following a balance screen at the [facility] a few months ago. Pt was found to display some balance deficiencies, and it was recommended that she follow-up with a more extensive balance evaluation. Pt additionally notes that she has fairly severe knee pain constantly, left worse than right. Did have a fall in her yard ~8 months ago, was not able to get herself up off the ground until her neighbor stopped by and was able to lift her up. Occasionally experiences dizziness, notes she recently went to the ED for it, which occurs usually when moving too fast, was referred to two different ENTs , no one was able to find a cause, but she admits she does not experience these symptoms often. Treatment Goals Patient/Caregiver Goals I just want to be able to easily care for myself. Personal Factors Other Personal Factors That May Effect Pt lives alone in a mother-in- Therapy/Recovery law suite with her daughter and son-in-law next door for assistance. Single floor, no stairs to enter. Occasionally uses FWW around the house, mainly when walking to the bathroom in the middle of the night. 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 She stated did sit for little bit when her knees were killing her. PT-OP-D Balance Start: 06/19/22 14:27 Freq: Status: Active Protocol: Document 06/19/22 11:15 DCW (Rec: 06/19/22 15:40 DCW [id number]) OP-PT Balance Assessment Sitting Balance Static Sitting Balance Ability Normal Dynamic Sitting Balance Ability Normal Standing Balance Static Standing Balance Ability Good Dynamic Standing Balance Ability Fair Device Used None Balance Tests Diaz Balance Test Diaz Balance Test Score 40/56 Diaz Impairment Rating 20 to 39% Impaired (Score 34- 44) Diaz Balance Assessment Evaluation Sitting to Standing Ability Independent w/out Hands Unsupported Stance Safely- 2 minutes Sitting Unsupported, Feet on Floor Safely- 2 minutes Standing to Sitting Ability Safely, Minimal Hand Use Transfer Ability Safely, Minimal Hand Use Unsupported Stance- Eyes Closed Supervision, 10 seconds Unsupported Stance- Eyes Open Independent, <30 seconds Reaching Forward Standing Safely, 5 inches Pick- Up Object From Floor Supervision Look Behind Shoulder - Standing Shifts Weight Unilateral Turning 360 Degrees Turns slowly, but safely Unsupported Stance, Alternating Feet on 2 Steps w/Minimum Assist Stair Unsupported Tandem Stance Small Step- 30 seconds Unilateral Leg Stance Lifts Leg/Unable to Hold Total Score Diaz Total Score (out of 56 points) 40 Diaz Impairment Rating 20 to 39% Impaired (Score 34- 44) Frances Fall Scale Copyright Permission PT-OP-E Functional Tests Start: 06/19/22 14:27 Freq: Status: Active Protocol: Document 06/19/22 11:15 DCW (Rec: 06/19/22 15:40 DCW [id number]) Functional Tests Dynamic Gait Index (DGI) Score 24 DGI Impairment Rating 40 to <60% Impaired (Score 10- 14) PT-OP-M Strength Start: 06/19/22 14:27 Freq: Status: Active Protocol: Document 06/19/22 11:15 DCW (Rec: 06/19/22 15:40 DCW [id number]) Hip Strength Hip Manual Muscle Testing Right Flexion (L2) 3+ Fair+ Abduction 3+ Fair+ Adduction 4- Good- Left Flexion (L2) 4- Good- Abduction 3+ Fair+ Adduction 4- Good- Knee Strength Knee Manual Muscle Testing Right Flexion (S2) 4 Good Extension (L3) 3 Fair Left Flexion (S2) 4- Good- Extension (L3) 3 Fair Ankle/Foot Strength Ankle and Foot Manual Muscle Testing Right Dorsiflexion (L4) 4 Good Left Dorsiflexion (L4) 4 Good PT-OP-Q Treatments Start: 06/19/22 14:27 Freq: Status: Active Protocol: Document 07/17/22 08:16 SP (Rec: 07/17/22 09:08 SP [id number]) Cardio Equipment Recumbent Elliptical (Dreampod) Duration (Minutes) 5 Resistance 5>6 Seat Position 10 Other UEs? LEs, 40 RPM likes the challenge, 428 steps Gym Equipment Shuttle Recovery Unilateral Squats Details 100-180 deg L knee painfree Resistance 37# B (1 new band) Shuttle Recovery Platform Stable Reps/Time 2x20 RLE, 20 + 15 LLE Bilateral Squats Details 100- 180 deg L knee painfree Resistance 75# (limited range to allow pain free L knee) 1 new band Shuttle Recovery Platform Stable Reps/Time x20 Therapeutic Exercises Sitting Exercises Ankle Flexion Sitting Exercise Name DF/PF/EV-added to HEP Side bilateral Resistance Lv 2>3 Reps/Minutes x8 reps help with remembering ([facility]) Comments cues for set up, good carryover 2nd LE Standing Exercises heel raises Standing Exercise Name heel/toe raises Resistance AROM heel lift then toe lift Equipment Used rail support PRN safety, LOB retro self recovery rail x3 Reps/Minutes 10 reps Comments no lean back during toe raise, cued trunk wt shift forward during toe raise resisted side stepping Standing Exercise Name reviewed HEP Resistance Tb #2 loop at mid taylor/ankles (RTB>GTB in PT) Equipment Used rail contact for stability needed Reps/Minutes 20 ft x2 laps Comments cued trial LE foot clearance return, tall posture, TA fac PT-OP-T Assessment and Plan Start: 06/19/22 14:27 Freq: Status: Active Protocol: Document 07/17/22 08:16 SP (Rec: 07/17/22 09:08 SP [id number]) Physical Therapy Assessment Goals Three Impairment Pt LE MMT between 3/5 and 4/5 bilaterally Halfway Goal (LTG) Pt LE MMT to score >4-/5 in all planes to demonstrate improved leg strength and stability to improve ability to perform floor transfers. LTG Duration 09/17/22 Two Impairment Pt presents as an increased falls risk, per Diaz (40/56) and DGI (07/27) Data Management Specialist Goal (LTG) Pt to improve Diaz score by at least 6 points to 46/56 in order to demonstrate a decreased falls risk LTG Duration 09/17/22 One Impairment Pt does not have an appropriate home exercise program Short Term Goal (STG) Pt to be independent and compliant with an appropriate HEP 07/17/22: heel raises, resisted ankle 3 way, band walk, stationary hip abd/ext. STG Duration 07/19/22 progressing 07/17/22 Assessment Summary Assessment Extra time spent I in HEP today, added resisted ankle for home. Pt improve reps toe raises standing with less retro lean TA and trunk awareness, did 3 LOB retro but self recover contact rail. Pt didn't need contact rail during resisted side stepping this tx, improved foot clearance post cues slow eccentric return. Physical Therapy Plan Frequency and Duration Frequency of Treatment 2x/Week Plan of Care Start Date 06/19/22 Plan of Care End Date 09/17/22 Therapeutic Interventions Therapeutic Interventions Aquatic Therapy,Balance Training,Home Exercise Program ,Manual Therapy,Neuromuscular Re-education,Patient/Caregiver Education,Self-Care/Home Management,Soft Tissue Mobilization,Therapeutic Activities,Therapeutic Exercises Next Visit Focus/Plan Next Note Type Treatment Note Next Visit Plan Recheck I HEP. POC: Continue challenging balance with tandem walk, EC in corner w foam, hurdles, work toward add corner floor HEP. Establish HEP, heel raises, sit to stands, corner balance.
--- NOTE | 2022-07-22 10:29 | PT.OTN ---
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 PT-OP-B Current Condition Start: 06/19/22 14:27 Freq: Status: Active Protocol: Document 06/19/22 11:15 DCW (Rec: 06/19/22 15:40 DCW [id number]) Current Condition History of Current Condition Onset Date Multi-year history Current Complaints Falls, imbalance, weakness, knee pain History of Current Condition Pt is an 82 year old female presenting to skilled therapy following a balance screen at the [facility] a few months ago. Pt was found to display some balance deficiencies, and it was recommended that she follow-up with a more extensive balance evaluation. Pt additionally notes that she has fairly severe knee pain constantly, left worse than right. Did have a fall in her yard ~8 months ago, was not able to get herself up off the ground until her neighbor stopped by and was able to lift her up. Occasionally experiences dizziness, notes she recently went to the ED for it, which occurs usually when moving too fast, was referred to two different ENTs , no one was able to find a cause, but she admits she does not experience these symptoms often. Treatment Goals Patient/Caregiver Goals I just want to be able to easily care for myself. Personal Factors Other Personal Factors That May Effect Pt lives alone in a mother-in- Therapy/Recovery law suite with her daughter and son-in-law next door for assistance. Single floor, no stairs to enter. Occasionally uses FWW around the house, mainly when walking to the bathroom in the middle of the night. PT-OP-C Subjective Start: 06/19/22 14:27 Freq: Status: Active Protocol: Document 07/22/22 09:45 DCW (Rec: 07/22/22 10:29 DCW [id number]) OP-PT Subjective Patient Comments Patient Comments Pt was a little worried about the snow this morning, but she just had too much to do, I couldn't just stay home. PT-OP-D Balance Start: 06/19/22 14:27 Freq: Status: Active Protocol: Document 06/19/22 11:15 DCW (Rec: 06/19/22 15:40 DCW [id number]) OP-PT Balance Assessment Sitting Balance Static Sitting Balance Ability Normal Dynamic Sitting Balance Ability Normal Standing Balance Static Standing Balance Ability Good Dynamic Standing Balance Ability Fair Device Used None Balance Tests Diaz Balance Test Diaz Balance Test Score 40/56 Diaz Impairment Rating 20 to 39% Impaired (Score 34- 44) Diaz Balance Assessment Evaluation Sitting to Standing Ability Independent w/out Hands Unsupported Stance Safely- 2 minutes Sitting Unsupported, Feet on Floor Safely- 2 minutes Standing to Sitting Ability Safely, Minimal Hand Use Transfer Ability Safely, Minimal Hand Use Unsupported Stance- Eyes Closed Supervision, 10 seconds Unsupported Stance- Eyes Open Independent, <30 seconds Reaching Forward Standing Safely, 5 inches Pick- Up Object From Floor Supervision Look Behind Shoulder - Standing Shifts Weight Unilateral Turning 360 Degrees Turns slowly, but safely Unsupported Stance, Alternating Feet on 2 Steps w/Minimum Assist Stair Unsupported Tandem Stance Small Step- 30 seconds Unilateral Leg Stance Lifts Leg/Unable to Hold Total Score Diaz Total Score (out of 56 points) 40 Diaz Impairment Rating 20 to 39% Impaired (Score 34- 44) Frances Fall Scale Copyright Permission PT-OP-E Functional Tests Start: 06/19/22 14:27 Freq: Status: Active Protocol: Document 06/19/22 11:15 DCW (Rec: 06/19/22 15:40 DCW [id number]) Functional Tests Dynamic Gait Index (DGI) Score 1224 DGI Impairment Rating 40 to <60% Impaired (Score 10- 14) PT-OP-M Strength Start: 06/19/22 14:27 Freq: Status: Active Protocol: Document 06/19/22 11:15 DCW (Rec: 06/19/22 15:40 DCW [id number]) Hip Strength Hip Manual Muscle Testing Right Flexion (L2) 3+ Fair+ Abduction 3+ Fair+ Adduction 4- Good- Left Flexion (L2) 4- Good- Abduction 3+ Fair+ Adduction 4- Good- Knee Strength Knee Manual Muscle Testing Right Flexion (S2) 4 Good Extension (L3) 3 Fair Left Flexion (S2) 4- Good- Extension (L3) 3 Fair Ankle/Foot Strength Ankle and Foot Manual Muscle Testing Right Dorsiflexion (L4) 4 Good Left Dorsiflexion (L4) 4 Good PT-OP-Q Treatments Start: 06/19/22 14:27 Freq: Status: Active Protocol: Document 07/22/22 09:45 DCW (Rec: 07/22/22 10:29 DCW [id number]) Cardio Equipment Recumbent Elliptical (Biodex) Duration (Minutes) 5 Resistance 6->7 Seat Position 10 Gym Equipment Shuttle Recovery Unilateral Squats Details 100-180 deg L knee painfree Resistance 37# B (1 new band) Shuttle Recovery Platform Stable Reps/Time x20 R, x15 L Bilateral Squats Details 100- 180 deg L knee painfree Resistance 75# (limited range to allow pain free L knee) 1 new band Shuttle Recovery Platform Stable Reps/Time x20 Therapeutic Exercises Sitting Exercises Ankle Flexion Sitting Exercise Name DF/PF/EV Side bilateral Resistance Lv 2>3 Reps/Minutes x8 reps help with remembering (same as [facility] ex) Comments cues for set up, good carryover 2nd LE Standing Exercises heel raises Standing Exercise Name heel/toe raises Resistance AROM heel lift then toe lift Equipment Used rail support PRN safety, LOB retro self recovery rail x3 Reps/Minutes 10 reps Comments no lean back during toe raise, cued trunk wt shift forward during toe raise resisted side stepping Resistance Red Equipment Used rail contact for stability needed Reps/Minutes 20 ft x2 laps Comments cued trial LE foot clearance return, tall posture, TA fac Hip Extension Standing Exercise Name Extension Side bilateral Resistance Red Equipment Used // bars Neuro Re-Education Treatment Balance Activities Tilt Board Details DF/PF, Lateral Equipment // bars SLS Details SLS Equipment // bars Tandem Stance Details Tandem Stance Equipment // bars PT-OP-T Assessment and Plan Start: 06/19/22 14:27 Freq: Status: Active Protocol: Document 07/22/22 09:45 DCW (Rec: 07/22/22 10:29 DCW [id number]) Physical Therapy Assessment Impairments Impairments Activity Tolerance,Balance, Functional Activities, Functional Mobility,Pain, Strength Goals Three Impairment Pt LE MMT between 3/5 and 4/5 bilaterally Jail Goal (LTG) Pt LE MMT to score >4-/5 in all planes to demonstrate improved leg strength and stability to improve ability to perform floor transfers. LTG Duration 09/17/22 Two Impairment Pt presents as an increased falls risk, per Diaz (40/56) and DGI (07/27) Practice Professional Goal (LTG) Pt to improve Diaz score by at least 6 points to 46/56 in order to demonstrate a decreased falls risk LTG Duration 09/17/22 One Impairment Pt does not have an appropriate home exercise program Short Term Goal (STG) Pt to be independent and compliant with an appropriate HEP 07/17/22: heel raises, resisted ankle 3 way, band walk, stationary hip abd/ext. STG Duration 07/19/22 progressing 07/17/22 Assessment Summary Assessment Pt tolerated treatment very well today, showing increased tolerance with strengthening and balancing on left foot without increased knee pain. Physical Therapy Plan Frequency and Duration Frequency of Treatment 2x/Week Plan of Care Start Date 06/19/22 Plan of Care End Date 09/17/22 Therapeutic Interventions Therapeutic Interventions Aquatic Therapy,Balance Training,Home Exercise Program ,Manual Therapy,Neuromuscular Re-education,Patient/Caregiver Education,Self-Care/Home Management,Soft Tissue Mobilization,Therapeutic Activities,Therapeutic Exercises Next Visit Focus/Plan Next Note Type Treatment Note Next Visit Plan Recheck I HEP. POC: Continue challenging balance with tandem walk, EC in corner w foam, hurdles, work toward add corner floor HEP. Establish HEP, heel raises, sit to stands, corner balance.
--- NOTE | 2022-07-24 10:31 | PT.OTN ---
Current Diagnoses Unsteadiness on feet (07/24/22) Other abnormalities of gait and mobility (07/24/22) Repeated falls (07/24/22) Physical Therapy Treatment Note PT-OP-A Visit Information Start: 06/19/22 14:27 Freq: Status: Active Protocol: Document 07/24/22 09:53 SP (Rec: 07/24/22 10:34 SP [id number]) Out-Patient Physical Therapy Visit Information Visit Information Visit Type Treatment Note Visit Note PN next tx Visit Start Time 09:53 Visit Stop Time 10:31 Total Visit Minutes 38 Visit Number 9 Number of SECURITY TEAM LEAD Visits 1 Evaluation Information Evaluation Date 06/19/22 Precautions Precautions 12: 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 PT-OP-B Current Condition Start: 06/19/22 14:27 Freq: Status: Active Protocol: Document 06/19/22 11:15 DCW (Rec: 06/19/22 15:40 DCW [id number]) Current Condition History of Current Condition Onset Date Multi-year history Current Complaints Falls, imbalance, weakness, knee pain History of Current Condition Pt is an 82 year old female presenting to skilled therapy following a balance screen at the [facility] a few months ago. Pt was found to display some balance deficiencies, and it was recommended that she follow-up with a more extensive balance evaluation. Pt additionally notes that she has fairly severe knee pain constantly, left worse than right. Did have a fall in her yard ~8 months ago, was not able to get herself up off the ground until her neighbor stopped by and was able to lift her up. Occasionally experiences dizziness, notes she recently went to the ED for it, which occurs usually when moving too fast, was referred to two different ENTs , no one was able to find a cause, but she admits she does not experience these symptoms often. Treatment Goals Patient/Caregiver Goals I just want to be able to easily care for myself. Personal Factors Other Personal Factors That May Effect Pt lives alone in a mother-in- Therapy/Recovery law suite with her daughter and son-in-law next door for assistance. Single floor, no stairs to enter. Occasionally uses FWW around the house, mainly when walking to the bathroom in the middle of the night. PT-OP-C Subjective Start: 06/19/22 14:27 Freq: Status: Active Protocol: Document 07/24/22 09:53 SP (Rec: 07/24/22 10:34 SP [id number]) OP-PT Subjective Patient Comments Patient Comments Pt reported son was able to drive her in due to bad weather, didn't get driveway shoveled well yet. PT-OP-D Balance Start: 06/19/22 14:27 Freq: Status: Active Protocol: Document 07/24/22 09:53 SP (Rec: 07/24/22 13:43 SP [id number]) Caruso Balance Assessment Evaluation Sitting to Standing Ability Independent w/Hands Unsupported Stance Safely- 2 minutes Sitting Unsupported, Feet on Floor Safely- 2 minutes Standing to Sitting Ability Independent, Uncontrolled Transfer Ability Safely, Minimal Hand Use Unsupported Stance- Eyes Closed Supervision, 10 seconds Unsupported Stance- Eyes Open Supervision to maintain Reaching Forward Standing Safely, 5 inches Pick- Up Object From Floor Independent/Safe Look Behind Shoulder - Standing Shifts Weight Well Turning 360 Degrees Turns Bilateral, < 4 secs Unsupported Stance, Alternating Feet on (I)- 8 Steps in 20 secs Stair Unsupported Tandem Stance Balance Lost- Step/Stand Unilateral Leg Stance Lifts Leg/Unable to Hold Total Score Caruso Total Score (out of 56 points) 42 Caruso Impairment Rating 20 to 39% Impaired (Score 34- 44) PT-OP-E Functional Tests Start: 06/19/22 14:27 Freq: Status: Active Protocol: Document 06/19/22 11:15 DCW (Rec: 06/19/22 15:40 DCW [id number]) Functional Tests Dynamic Gait Index (DGI) Score 1224 DGI Impairment Rating 40 to <60% Impaired (Score 10- 14) PT-OP-M Strength Start: 06/19/22 14:27 Freq: Status: Active Protocol: Document 06/19/22 11:15 DCW (Rec: 06/19/22 15:40 DCW [id number]) Hip Strength Hip Manual Muscle Testing Right Flexion (L2) 3+ Fair+ Abduction 3+ Fair+ Adduction 4- Good- Left Flexion (L2) 4- Good- Abduction 3+ Fair+ Adduction 4- Good- Knee Strength Knee Manual Muscle Testing Right Flexion (S2) 4 Good Extension (L3) 3 Fair Left Flexion (S2) 4- Good- Extension (L3) 3 Fair Ankle/Foot Strength Ankle and Foot Manual Muscle Testing Right Dorsiflexion (L4) 4 Good Left Dorsiflexion (L4) 4 Good PT-OP-Q Treatments Start: 06/19/22 14:27 Freq: Status: Active Protocol: Document 07/24/22 09:53 SP (Rec: 07/24/22 10:34 SP [id number]) Cardio Equipment Recumbent Elliptical (Biodex) Duration (Minutes) 5 Resistance 6 (maybe 7 next tx, 6 enough 07/24/22) Seat Position 8 Other UEs/ LEs 380 steps Gym Equipment Shuttle Recovery Unilateral Squats Details 108-180 deg L knee painfree Resistance 37# R (1 new band), 25# L (old band) Shuttle Recovery Platform Stable Reps/Time x20 R, x8 L (pain increased today) Bilateral Squats Details 108- 180 deg L knee painfree Resistance 75# (limited range to allow pain free L knee) 1 new band Shuttle Recovery Platform Stable Reps/Time x20 Neuro Re-Education Treatment Balance Activities CARUSO Details 42 Comments improvement from 40 in Nov. PT-OP-T Assessment and Plan Start: 06/19/22 14:27 Freq: Status: Active Protocol: Document 07/24/22 09:53 SP (Rec: 07/24/22 10:34 SP [id number]) Physical Therapy Assessment Goals Three Impairment Pt LE MMT between 3/5 and 4/5 bilaterally Fitness Specialist Goal (LTG) Pt LE MMT to score >4-/5 in all planes to demonstrate improved leg strength and stability to improve ability to perform floor transfers. LTG Duration 09/17/22 Two Impairment Pt presents as an increased falls risk, per Caruso (40/56) and DGI (07/27) Nursing Home Goal (LTG) Pt to improve Caruso score by at least 6 points to 46/56 in order to demonstrate a decreased falls risk 07/24/22: progressin/56 improving in CARUSO since Nov . LTG Duration 09/17/22 progressin07/24/22 One Impairment Pt does not have an appropriate home exercise program Short Term Goal (STG) Pt to be independent and compliant with an appropriate HEP 07/17/22: heel raises, resisted ankle 3 way, band walk, stationary hip abd/ext. STG Duration 07/19/22 progressing 07/17/22 Progress Towards Goals Progress Comments Improvement in CARUSO by 2 points but continues to be a fall risk. Assessment Summary Assessment Pt making small gains in balance but states still challenged getting out of chair and trying not to fall into chair but more controlled . Physical Therapy Plan Frequency and Duration Frequency of Treatment 2x/Week Plan of Care Start Date 06/19/22 Plan of Care End Date 09/17/22 Therapeutic Interventions Therapeutic Interventions Aquatic Therapy,Balance Training,Home Exercise Program ,Manual Therapy,Neuromuscular Re-education,Patient/Caregiver Education,Self-Care/Home Management,Soft Tissue Mobilization,Therapeutic Activities,Therapeutic Exercises Next Visit Focus/Plan Next Note Type Treatment Note Next Visit Plan Next tx will need 10th visit PN, completed CARUSO last tx. Recheck I HEP. POC: Continue challenging balance with tandem walk, EC in corner w foam, hurdles.
--- NOTE | 2022-08-01 11:14 | PT.OTN ---
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 PT-OP-B Current Condition Start: 06/19/22 14:27 Freq: Status: Active Protocol: Document 06/19/22 11:15 DCW (Rec: 06/19/22 15:40 DCW [id number]) Current Condition History of Current Condition Onset Date Multi-year history Current Complaints Falls, imbalance, weakness, knee pain History of Current Condition Pt is an 82 year old female presenting to skilled therapy following a balance screen at the [facility] a few months ago. Pt was found to display some balance deficiencies, and it was recommended that she follow-up with a more extensive balance evaluation. Pt additionally notes that she has fairly severe knee pain constantly, left worse than right. Did have a fall in her yard ~8 months ago, was not able to get herself up off the ground until her neighbor stopped by and was able to lift her up. Occasionally experiences dizziness, notes she recently went to the ED for it, which occurs usually when moving too fast, was referred to two different ENTs , no one was able to find a cause, but she admits she does not experience these symptoms often. Treatment Goals Patient/Caregiver Goals I just want to be able to easily care for myself. Personal Factors Other Personal Factors That May Effect Pt lives alone in a mother-in- Therapy/Recovery law suite with her daughter and son-in-law next door for assistance. Single floor, no stairs to enter. Occasionally uses FWW around the house, mainly when walking to the bathroom in the middle of the night. PT-OP-C Subjective Start: 06/19/22 14:27 Freq: Status: Active Protocol: Document 08/01/22 10:30 DCW (Rec: 08/01/22 11:14 DCW [id number]) OP-PT Subjective Patient Comments Patient Comments I have a lot of things I can do at home, but I don't have these machines I could work on . PT-OP-D Balance Start: 06/19/22 14:27 Freq: Status: Active Protocol: Document 07/24/22 09:53 SP (Rec: 07/24/22 13:43 SP [id number]) Diaz Balance Assessment Evaluation Sitting to Standing Ability Independent w/Hands Unsupported Stance Safely- 2 minutes Sitting Unsupported, Feet on Floor Safely- 2 minutes Standing to Sitting Ability Independent, Uncontrolled Transfer Ability Safely, Minimal Hand Use Unsupported Stance- Eyes Closed Supervision, 10 seconds Unsupported Stance- Eyes Open Supervision to maintain Reaching Forward Standing Safely, 5 inches Pick- Up Object From Floor Independent/Safe Look Behind Shoulder - Standing Shifts Weight Well Turning 360 Degrees Turns Bilateral, < 4 secs Unsupported Stance, Alternating Feet on (I)- 8 Steps in 20 secs Stair Unsupported Tandem Stance Balance Lost- Step/Stand Unilateral Leg Stance Lifts Leg/Unable to Hold Total Score Diaz Total Score (out of 56 points) 42 Diaz Impairment Rating 20 to 39% Impaired (Score 34- 44) PT-OP-E Functional Tests Start: 06/19/22 14:27 Freq: Status: Active Protocol: Document 06/19/22 11:15 DCW (Rec: 06/19/22 15:40 DCW [id number]) Functional Tests Dynamic Gait Index (DGI) Score 1224 DGI Impairment Rating 40 to <60% Impaired (Score 10- 14) PT-OP-M Strength Start: 06/19/22 14:27 Freq: Status: Active Protocol: Document 06/19/22 11:15 DCW (Rec: 06/19/22 15:40 DCW [id number]) Hip Strength Hip Manual Muscle Testing Right Flexion (L2) 3+ Fair+ Abduction 3+ Fair+ Adduction 4- Good- Left Flexion (L2) 4- Good- Abduction 3+ Fair+ Adduction 4- Good- Knee Strength Knee Manual Muscle Testing Right Flexion (S2) 4 Good Extension (L3) 3 Fair Left Flexion (S2) 4- Good- Extension (L3) 3 Fair Ankle/Foot Strength Ankle and Foot Manual Muscle Testing Right Dorsiflexion (L4) 4 Good Left Dorsiflexion (L4) 4 Good PT-OP-Q Treatments Start: 06/19/22 14:27 Freq: Status: Active Protocol: Document 08/01/22 10:30 DCW (Rec: 08/01/22 11:14 DCW [id number]) Cardio Equipment Recumbent Stepper (Sci-Fit) Duration (Minutes) 5 Resistance 4 Seat Position 11 Gym Equipment Shuttle Recovery Unilateral Squats Details 95-180 deg L knee painfree Resistance 37# Shuttle Recovery Platform Stable Reps/Time x20 Bilateral Squats Details 95-180 deg L knee painfree Resistance 75# (limited range to allow pain free L knee) 1 new band Shuttle Recovery Platform Stable Reps/Time x20 Therapeutic Exercises Sitting Exercises Ankle Flexion Sitting Exercise Name DF/PF/EV Side bilateral Resistance Lv 3 Reps/Minutes x10 Standing Exercises resisted side stepping Resistance Red Equipment Used rail contact for stability needed Reps/Minutes 20 ft x2 laps Comments cued trial LE foot clearance return, tall posture, TA fac Neuro Re-Education Treatment Balance Activities Tilt Board Details DF/PF, Lateral Equipment // bars SLS Details SLS Equipment // bars Tandem Stance Details Tandem Stance Equipment // bars PT-OP-T Assessment and Plan Start: 06/19/22 14:27 Freq: Status: Active Protocol: Document 08/01/22 10:30 DCW (Rec: 08/01/22 11:14 DCW [id number]) Physical Therapy Assessment Impairments Impairments Activity Tolerance,Balance, Functional Activities, Functional Mobility,Pain, Strength Goals Three Impairment Pt LE MMT between 3/5 and 4/5 bilaterally Bolt Sorter Goal (LTG) Pt LE MMT to score >4-/5 in all planes to demonstrate improved leg strength and stability to improve ability to perform floor transfers. LTG Duration 09/17/22 Two Impairment Pt presents as an increased falls risk, per Diaz (40/56) and DGI (07/27) Custodial Goal (LTG) Pt to improve Diaz score by at least 6 points to 46/56 in order to demonstrate a decreased falls risk LTG Duration 09/17/22 progressin07/24/22 One Impairment Pt does not have an appropriate home exercise program Short Term Goal (STG) Pt to be independent and compliant with an appropriate HEP 07/17/22: heel raises, resisted ankle 3 way, band walk, stationary hip abd/ext. STG Duration 07/19/22 progressing 07/17/22 Assessment Summary Assessment Pt showing good improvement today, able to bend left knee further without complaints of pain, using increased resistance with exercises. Recent Diaz showing small improvements from initial evaluation. Pt will likely benefit from continued skilled intervention. Physical Therapy Plan Frequency and Duration Frequency of Treatment 2x/Week Plan of Care Start Date 06/19/22 Plan of Care End Date 09/17/22 Therapeutic Interventions Therapeutic Interventions Aquatic Therapy,Balance Training,Home Exercise Program ,Manual Therapy,Neuromuscular Re-education,Patient/Caregiver Education,Self-Care/Home Management,Soft Tissue Mobilization,Therapeutic Activities,Therapeutic Exercises Next Visit Focus/Plan Next Note Type Treatment Note Next Visit Plan POC: Continue challenging balance with tandem walk, EC in corner w foam, hurdles.
--- NOTE | 2022-08-13 11:12 | PT.OTN ---
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 PT-OP-B Current Condition Start: 06/19/22 14:27 Freq: Status: Active Protocol: Document 06/19/22 11:15 DCW (Rec: 06/19/22 15:40 DCW [id number]) Current Condition History of Current Condition Onset Date Multi-year history Current Complaints Falls, imbalance, weakness, knee pain History of Current Condition Pt is an 82 year old female presenting to skilled therapy following a balance screen at the [facility] a few months ago. Pt was found to display some balance deficiencies, and it was recommended that she follow-up with a more extensive balance evaluation. Pt additionally notes that she has fairly severe knee pain constantly, left worse than right. Did have a fall in her yard ~8 months ago, was not able to get herself up off the ground until her neighbor stopped by and was able to lift her up. Occasionally experiences dizziness, notes she recently went to the ED for it, which occurs usually when moving too fast, was referred to two different ENTs , no one was able to find a cause, but she admits she does not experience these symptoms often. Treatment Goals Patient/Caregiver Goals I just want to be able to easily care for myself. Personal Factors Other Personal Factors That May Effect Pt lives alone in a mother-in- Therapy/Recovery law suite with her daughter and son-in-law next door for assistance. Single floor, no stairs to enter. Occasionally uses FWW around the house, mainly when walking to the bathroom in the middle of the night. PT-OP-C Subjective Start: 06/19/22 14:27 Freq: Status: Active Protocol: Document 08/13/22 10:30 DCW (Rec: 08/13/22 11:12 DCW [id number]) OP-PT Subjective Patient Comments Patient Comments I got here too early today, so I've been sitting here too long, and now my knees are having trouble getting going again. PT-OP-D Balance Start: 06/19/22 14:27 Freq: Status: Active Protocol: Document 07/24/22 09:53 SP (Rec: 07/24/22 13:43 SP [id number]) Diaz Balance Assessment Evaluation Sitting to Standing Ability Independent w/Hands Unsupported Stance Safely- 2 minutes Sitting Unsupported, Feet on Floor Safely- 2 minutes Standing to Sitting Ability Independent, Uncontrolled Transfer Ability Safely, Minimal Hand Use Unsupported Stance- Eyes Closed Supervision, 10 seconds Unsupported Stance- Eyes Open Supervision to maintain Reaching Forward Standing Safely, 5 inches Pick- Up Object From Floor Independent/Safe Look Behind Shoulder - Standing Shifts Weight Well Turning 360 Degrees Turns Bilateral, < 4 secs Unsupported Stance, Alternating Feet on (I)- 8 Steps in 20 secs Stair Unsupported Tandem Stance Balance Lost- Step/Stand Unilateral Leg Stance Lifts Leg/Unable to Hold Total Score Diaz Total Score (out of 56 points) 42 Diaz Impairment Rating 20 to 39% Impaired (Score 34- 44) PT-OP-E Functional Tests Start: 06/19/22 14:27 Freq: Status: Active Protocol: Document 06/19/22 11:15 DCW (Rec: 06/19/22 15:40 DCW [id number]) Functional Tests Dynamic Gait Index (DGI) Score 24 DGI Impairment Rating 40 to <60% Impaired (Score 10- 14) PT-OP-M Strength Start: 06/19/22 14:27 Freq: Status: Active Protocol: Document 06/19/22 11:15 DCW (Rec: 06/19/22 15:40 DCW [id number]) Hip Strength Hip Manual Muscle Testing Right Flexion (L2) 3+ Fair+ Abduction 3+ Fair+ Adduction 4- Good- Left Flexion (L2) 4- Good- Abduction 3+ Fair+ Adduction 4- Good- Knee Strength Knee Manual Muscle Testing Right Flexion (S2) 4 Good Extension (L3) 3 Fair Left Flexion (S2) 4- Good- Extension (L3) 3 Fair Ankle/Foot Strength Ankle and Foot Manual Muscle Testing Right Dorsiflexion (L4) 4 Good Left Dorsiflexion (L4) 4 Good PT-OP-Q Treatments Start: 06/19/22 14:27 Freq: Status: Active Protocol: Document 08/13/22 10:30 DCW (Rec: 08/13/22 11:12 DCW [id number]) Cardio Equipment Recumbent Elliptical (Biodex) Duration (Minutes) 5 Resistance 7 Seat Position 8 Gym Equipment Shuttle Recovery Unilateral Squats Details 95-180 deg L knee painfree Resistance 37# Shuttle Recovery Platform Stable Reps/Time x20 Bilateral Squats Details 95-180 deg L knee painfree Resistance 75#, 1 new band Shuttle Recovery Platform Stable Reps/Time x20 Therapeutic Exercises Sitting Exercises Ankle Flexion Sitting Exercise Name DF/PF/EV Side bilateral Resistance Lv 3 Reps/Minutes x20 Standing Exercises resisted side stepping Resistance Red Equipment Used rail contact for stability needed Reps/Minutes 20 ft x3 laps Comments cued trial LE foot clearance return, tall posture, TA fac Hip Extension Standing Exercise Name Extension Side bilateral Resistance Red Equipment Used // bars Neuro Re-Education Treatment Balance Activities Tandem Walk Equipment // bars Reps/Duration 2x10' Comments 1 to 2 handrail assist, cues for glute and core act. CGA- Skylar for x3 LOB Tilt Board Details DF/PF, Lateral Equipment // bars SLS Details SLS Equipment // bars PT-OP-T Assessment and Plan Start: 06/19/22 14:27 Freq: Status: Active Protocol: Document 08/13/22 10:30 DCW (Rec: 08/13/22 11:12 DCW [id number]) Physical Therapy Assessment Impairments Impairments Activity Tolerance,Balance, Functional Activities, Functional Mobility,Pain, Strength Goals Three Impairment Pt LE MMT between 3/5 and 4/5 bilaterally Assisted Goal (LTG) Pt LE MMT to score >4-/5 in all planes to demonstrate improved leg strength and stability to improve ability to perform floor transfers. LTG Duration 09/17/22 Two Impairment Pt presents as an increased falls risk, per Diaz (40/56) and DGI (07/27) Chancery Clerk Goal (LTG) Pt to improve Diaz score by at least 6 points to 46/56 in order to demonstrate a decreased falls risk LTG Duration 09/17/22 progressin07/24/22 One Impairment Pt does not have an appropriate home exercise program Short Term Goal (STG) Pt to be independent and compliant with an appropriate HEP 07/17/22: heel raises, resisted ankle 3 way, band walk, stationary hip abd/ext. STG Duration progressin09/17/22 Assessment Summary Assessment Pt demonstrating some increased strengthen in control in LEs, right moreso than left. Left knee continues to be a limiting factor in rehab potential. Physical Therapy Plan Frequency and Duration Frequency of Treatment 2x/Week Plan of Care Start Date 06/19/22 Plan of Care End Date 09/17/22 Therapeutic Interventions Therapeutic Interventions Aquatic Therapy,Balance Training,Home Exercise Program ,Manual Therapy,Neuromuscular Re-education,Patient/Caregiver Education,Self-Care/Home Management,Soft Tissue Mobilization,Therapeutic Activities,Therapeutic Exercises Next Visit Focus/Plan Next Note Type Treatment Note Next Visit Plan POC: Continue challenging balance with tandem walk, EC in corner w foam, hurdles.
--- NOTE | 2022-08-26 15:15 | PT.OTN ---
Current Diagnoses Unsteadiness on feet (08/26/22) Other abnormalities of gait and mobility (08/26/22) Repeated falls (08/26/22) Physical Therapy Treatment Note PT-OP-A Visit Information Start: 06/19/22 14:27 Freq: Status: Active Protocol: Document 08/26/22 14:34 SP (Rec: 08/26/22 15:45 SP [id number]) Out-Patient Physical Therapy Visit Information Visit Information Visit Type Treatment Note Visit Note PN/POC in 3 visits. 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 PT-OP-B Current Condition Start: 06/19/22 14:27 Freq: Status: Active Protocol: Document 06/19/22 11:15 DCW (Rec: 06/19/22 15:40 DCW [id number]) Current Condition History of Current Condition Onset Date Multi-year history Current Complaints Falls, imbalance, weakness, knee pain History of Current Condition Pt is an 82 year old female presenting to skilled therapy following a balance screen at the [facility] a few months ago. Pt was found to display some balance deficiencies, and it was recommended that she follow-up with a more extensive balance evaluation. Pt additionally notes that she has fairly severe knee pain constantly, left worse than right. Did have a fall in her yard ~8 months ago, was not able to get herself up off the ground until her neighbor stopped by and was able to lift her up. Occasionally experiences dizziness, notes she recently went to the ED for it, which occurs usually when moving too fast, was referred to two different ENTs , no one was able to find a cause, but she admits she does not experience these symptoms often. Treatment Goals Patient/Caregiver Goals I just want to be able to easily care for myself. Personal Factors Other Personal Factors That May Effect Pt lives alone in a mother-in- Therapy/Recovery law suite with her daughter and son-in-law next door for assistance. Single floor, no stairs to enter. Occasionally uses FWW around the house, mainly when walking to the bathroom in the middle of the night. PT-OP-C Subjective Start: 06/19/22 14:27 Freq: Status: Active Protocol: Document 08/26/22 14:34 SP (Rec: 08/26/22 15:45 SP [id number]) OP-PT Subjective Patient Comments Patient Comments Pt reports compliant with TB standing hip HEP with band but not sure where to position the band. PT-OP-D Balance Start: 06/19/22 14:27 Freq: Status: Active Protocol: Document 07/24/22 09:53 SP (Rec: 07/24/22 13:43 SP [id number]) Diaz Balance Assessment Evaluation Sitting to Standing Ability Independent w/Hands Unsupported Stance Safely- 2 minutes Sitting Unsupported, Feet on Floor Safely- 2 minutes Standing to Sitting Ability Independent, Uncontrolled Transfer Ability Safely, Minimal Hand Use Unsupported Stance- Eyes Closed Supervision, 10 seconds Unsupported Stance- Eyes Open Supervision to maintain Reaching Forward Standing Safely, 5 inches Pick- Up Object From Floor Independent/Safe Look Behind Shoulder - Standing Shifts Weight Well Turning 360 Degrees Turns Bilateral, < 4 secs Unsupported Stance, Alternating Feet on (I)- 8 Steps in 20 secs Stair Unsupported Tandem Stance Balance Lost- Step/Stand Unilateral Leg Stance Lifts Leg/Unable to Hold Total Score Diaz Total Score (out of 56 points) 42 Diaz Impairment Rating 20 to 39% Impaired (Score 34- 44) PT-OP-E Functional Tests Start: 06/19/22 14:27 Freq: Status: Active Protocol: Document 06/19/22 11:15 DCW (Rec: 06/19/22 15:40 DCW [id number]) Functional Tests Dynamic Gait Index (DGI) Score 12/24 DGI Impairment Rating 40 to <60% Impaired (Score 10- 14) PT-OP-M Strength Start: 06/19/22 14:27 Freq: Status: Active Protocol: Document 06/19/22 11:15 DCW (Rec: 06/19/22 15:40 DCW [id number]) Hip Strength Hip Manual Muscle Testing Right Flexion (L2) 3+ Fair+ Abduction 3+ Fair+ Adduction 4- Good- Left Flexion (L2) 4- Good- Abduction 3+ Fair+ Adduction 4- Good- Knee Strength Knee Manual Muscle Testing Right Flexion (S2) 4 Good Extension (L3) 3 Fair Left Flexion (S2) 4- Good- Extension (L3) 3 Fair Ankle/Foot Strength Ankle and Foot Manual Muscle Testing Right Dorsiflexion (L4) 4 Good Left Dorsiflexion (L4) 4 Good PT-OP-Q Treatments Start: 06/19/22 14:27 Freq: Status: Active Protocol: Document 08/26/22 14:34 SP (Rec: 08/26/22 15:45 SP [id number]) Cardio Equipment Recumbent Elliptical (Biodex) Duration (Minutes) 6 Resistance 8 UE/ LE 2 min, 4 LEs only 4 min Seat Position see 8 Other cued no shld rotations, scap retraction/TA stability-better Gym Equipment Shuttle Recovery Unilateral Squats Details 85-180 deg L knee (less 10 deg due to pain) Resistance 37# (1 new band) Shuttle Recovery Platform Stable Reps/Time 2x15 Bilateral Squats Details 85-180 deg L knee (less 10 deg due to pain) Resistance 75# (1 new band) Shuttle Recovery Platform Stable Reps/Time x20 Therapeutic Exercises Sitting Exercises STS Sitting Exercise Name added to HEP Resistance 2# DB in hands Equipment Used mesh chair Reps/Minutes x5reps Comments cued scoot fwd, feet underneath- cued slower safe descent Standing Exercises self STMs Standing Exercise Name introduced: quad, HS, ITB, adductor, calf Side right Reps/Minutes 2 min Comments good feedback massage to muscles resisted side stepping Standing Exercise Name HEP reviewed Resistance Red at mid taylor Equipment Used near rail, no contact needed 08/26 Reps/Minutes 20 ft x3 laps Comments cued trial LE foot clearance return, tall scap squeeze Hip Extension Standing Exercise Name Extension- discussion HEP review Side bilateral Resistance Red Equipment Used // bars Comments discussed not performed - glut fac not LB recruit Hip Abduction Standing Exercise Name Abduction- discussion HEP review Side bilateral Resistance Red Equipment Used // bars Comments discussed/not performed - cue hip abd fac, no LB Neuro Re-Education Treatment Balance Activities Tandem Walk Details discussed in PT only at this time Surface stagger/tandem fwd walk Equipment rail PRN Reps/Duration 15 ' x5 laps Comments 0-1 handrail assist needed, cues for tall look forward posturing, scap squeeze, close SBA/CGA needed x2- improved stability. PT-OP-T Assessment and Plan Start: 06/19/22 14:27 Freq: Status: Active Protocol: Document 08/26/22 14:34 SP (Rec: 08/26/22 15:45 SP [id number]) Physical Therapy Assessment Goals Three Impairment Pt LE MMT between 3/5 and 4/5 bilaterally Fci Goal (LTG) Pt LE MMT to score >4-/5 in all planes to demonstrate improved leg strength and stability to improve ability to perform floor transfers. LTG Duration 09/17/22 Two Impairment Pt presents as an increased falls risk, per Diaz (40/56) and DGI (07/27) Restaurant Crew Member Goal (LTG) Pt to improve Diaz score by at least 6 points to 46/56 in order to demonstrate a decreased falls risk LTG Duration 09/17/22 progressin07/24/22 One Impairment Pt does not have an appropriate home exercise program Short Term Goal (STG) Pt to be independent and compliant with an appropriate HEP 07/17/22: heel raises, resisted ankle 3 way, band walk, stationary hip abd/ext. STG Duration progressin09/17/22 Assessment Summary Assessment Pt had 13 days since last tx, less L knee ROM during shuttle recovery but ableto perform same resistance. Pt improved slower descent sitting without UE support ( across chest) post self STMs w / rolling pin, less L knee discomfort. Pt improved stagger/tandem walking UE contact rail as needed this tx with cues posture/scap squeeze/look ahead.Pt required decrease range shuttle recovery 10* due to L knee pain. Physical Therapy Plan Frequency and Duration Frequency of Treatment 2x/Week Plan of Care Start Date 06/19/22 Plan of Care End Date 09/17/22 Therapeutic Interventions Therapeutic Interventions Aquatic Therapy,Balance Training,Home Exercise Program ,Manual Therapy,Neuromuscular Re-education,Patient/Caregiver Education,Self-Care/Home Management,Soft Tissue Mobilization,Therapeutic Activities,Therapeutic Exercises Next Visit Focus/Plan Next Note Type Treatment Note Next Visit Plan PN/POC in 3 visits. Continue balance can do at home for carryover. POC: Continue challenging balance with tandem walk, EC in corner w foam, hurdles.
--- NOTE | 2022-09-09 13:01 | PT.OTN ---
Current Diagnoses Unsteadiness on feet (09/09/22) Other abnormalities of gait and mobility (09/09/22) Repeated falls (09/09/22) Physical Therapy Treatment Note PT-OP-A Visit Information Start: 06/19/22 14:27 Freq: Status: Active Protocol: Document 09/09/22 12:20 SP (Rec: 09/09/22 13:05 SP [id number]) Out-Patient Physical Therapy Visit Information Visit Information Visit Type Treatment Note Visit Note PN/POC in 2 visits (09/17). 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 PT-OP-B Current Condition Start: 06/19/22 14:27 Freq: Status: Active Protocol: Document 06/19/22 11:15 DCW (Rec: 06/19/22 15:40 DCW [id number]) Current Condition History of Current Condition Onset Date Multi-year history Current Complaints Falls, imbalance, weakness, knee pain History of Current Condition Pt is an 82 year old female presenting to skilled therapy following a balance screen at the [facility] a few months ago. Pt was found to display some balance deficiencies, and it was recommended that she follow-up with a more extensive balance evaluation. Pt additionally notes that she has fairly severe knee pain constantly, left worse than right. Did have a fall in her yard ~8 months ago, was not able to get herself up off the ground until her neighbor stopped by and was able to lift her up. Occasionally experiences dizziness, notes she recently went to the ED for it, which occurs usually when moving too fast, was referred to two different ENTs , no one was able to find a cause, but she admits she does not experience these symptoms often. Treatment Goals Patient/Caregiver Goals I just want to be able to easily care for myself. Personal Factors Other Personal Factors That May Effect Pt lives alone in a mother-in- Therapy/Recovery law suite with her daughter and son-in-law next door for assistance. Single floor, no stairs to enter. Occasionally uses FWW around the house, mainly when walking to the bathroom in the middle of the night. PT-OP-C Subjective Start: 06/19/22 14:27 Freq: Status: Active Protocol: Document 09/09/22 12:20 SP (Rec: 09/09/22 13:05 SP [id number]) OP-PT Subjective Patient Comments Patient Comments Pt reports still not back to balance feels needed for safety. Wants to add more appts and will have POC update on 09/17. Pt reports walks about 8 blocks /day weather permitting and inside 100 step 3x during commercials. PT-OP-D Balance Start: 06/19/22 14:27 Freq: Status: Active Protocol: Document 07/24/22 09:53 SP (Rec: 07/24/22 13:43 SP [id number]) Diaz Balance Assessment Evaluation Sitting to Standing Ability Independent w/Hands Unsupported Stance Safely- 2 minutes Sitting Unsupported, Feet on Floor Safely- 2 minutes Standing to Sitting Ability Independent, Uncontrolled Transfer Ability Safely, Minimal Hand Use Unsupported Stance- Eyes Closed Supervision, 10 seconds Unsupported Stance- Eyes Open Supervision to maintain Reaching Forward Standing Safely, 5 inches Pick- Up Object From Floor Independent/Safe Look Behind Shoulder - Standing Shifts Weight Well Turning 360 Degrees Turns Bilateral, < 4 secs Unsupported Stance, Alternating Feet on (I)- 8 Steps in 20 secs Stair Unsupported Tandem Stance Balance Lost- Step/Stand Unilateral Leg Stance Lifts Leg/Unable to Hold Total Score Diaz Total Score (out of 56 points) 42 Diaz Impairment Rating 20 to 39% Impaired (Score 34- 44) PT-OP-E Functional Tests Start: 06/19/22 14:27 Freq: Status: Active Protocol: Document 06/19/22 11:15 DCW (Rec: 06/19/22 15:40 DCW [id number]) Functional Tests Dynamic Gait Index (DGI) Score 07/27 DGI Impairment Rating 40 to <60% Impaired (Score 10- 14) PT-OP-M Strength Start: 06/19/22 14:27 Freq: Status: Active Protocol: Document 06/19/22 11:15 DCW (Rec: 06/19/22 15:40 DCW [id number]) Hip Strength Hip Manual Muscle Testing Right Flexion (L2) 3+ Fair+ Abduction 3+ Fair+ Adduction 4- Good- Left Flexion (L2) 4- Good- Abduction 3+ Fair+ Adduction 4- Good- Knee Strength Knee Manual Muscle Testing Right Flexion (S2) 4 Good Extension (L3) 3 Fair Left Flexion (S2) 4- Good- Extension (L3) 3 Fair Ankle/Foot Strength Ankle and Foot Manual Muscle Testing Right Dorsiflexion (L4) 4 Good Left Dorsiflexion (L4) 4 Good PT-OP-Q Treatments Start: 06/19/22 14:27 Freq: Status: Active Protocol: Document 09/09/22 12:20 SP (Rec: 09/09/22 13:05 SP [id number]) Gym Equipment Shuttle Recovery Unilateral Squats Details 75-180 deg L knee (less 10 deg due to L knee pain) Resistance 37# (1 new band) Shuttle Recovery Platform Stable Reps/Time 2x15 Bilateral Squats Details 75-180 deg L knee (less 10 deg due to L knee pain) Resistance 75# (1 new band) Shuttle Recovery Platform Stable Reps/Time x20 Sport Cord red Exercise Details f/b/side R and L, step ups only able asc RLE, LLE knee pain today more Cord/Resistance red Comments cued COG over EVA/mid foot, eccentric control and soft stepping with TA support. Therapeutic Exercises Sitting Exercises STS Sitting Exercise Name reviewed HEP Resistance AROM (trialed 5x STS for self progression) Equipment Used mesh chair Reps/Minutes 5x STS in 19 sec, Comments cued scoot fwd, feet underneath- cued slower safe descent Neuro Re-Education Treatment Balance Activities TUG Details 13 sec, 12 sec PT-OP-T Assessment and Plan Start: 06/19/22 14:27 Freq: Status: Active Protocol: Document 09/09/22 12:20 SP (Rec: 09/09/22 13:05 SP [id number]) Physical Therapy Assessment Goals Three Impairment Pt LE MMT between 3/5 and 4/5 bilaterally Skilled Nursing Goal (LTG) Pt LE MMT to score >4-/5 in all planes to demonstrate improved leg strength and stability to improve ability to perform floor transfers. LTG Duration 09/17/22 Two Impairment Pt presents as an increased falls risk, per Diaz (40/56) and DGI (07/27) Rebar Worker Goal (LTG) Pt to improve Diaz score by at least 6 points to 46/56 in order to demonstrate a decreased falls risk LTG Duration 09/17/22 progressin07/24/22 One Impairment Pt does not have an appropriate home exercise program Short Term Goal (STG) Pt to be independent and compliant with an appropriate HEP 07/17/22: heel raises, resisted ankle 3 way, band walk, stationary hip abd/ext. 09/09/22: ankle 4 way, band walks, STS from straight back chair and yoga personal: supine: ankle ROM, hip add/abd AROM, wrist/arm AROM front/ side/OH. 5x STS in 19 sec. STG Duration 09/17/22 progressin09/09/22 Assessment Summary Assessment Pt improved slower descent to chair with cues. Pt's L knee irritated today and less ROM 75deg flexion tolerated during shuttle recovery. Verbal updated HEP in goal. Improved TA, hip abd fac during sport cord initiated this tx and better understanding softer LE advancement can support balance. Physical Therapy Plan Frequency and Duration Frequency of Treatment 2x/Week Plan of Care Start Date 06/19/22 Plan of Care End Date 09/17/22 Therapeutic Interventions Therapeutic Interventions Aquatic Therapy,Balance Training,Home Exercise Program ,Manual Therapy,Neuromuscular Re-education,Patient/Caregiver Education,Self-Care/Home Management,Soft Tissue Mobilization,Therapeutic Activities,Therapeutic Exercises Next Visit Focus/Plan Next Note Type Treatment Note Next Visit Plan PN/POC in 3 visits. POC: Continue challenging balance with tandem walk, EC in corner w foam, hurdles.
--- NOTE | 2022-09-12 12:00 | PT.OTN ---
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 PT-OP-B Current Condition Start: 06/19/22 14:27 Freq: Status: Active Protocol: Document 06/19/22 11:15 DCW (Rec: 06/19/22 15:40 DCW [id number]) Current Condition History of Current Condition Onset Date Multi-year history Current Complaints Falls, imbalance, weakness, knee pain History of Current Condition Pt is an 82 year old female presenting to skilled therapy following a balance screen at the [facility] a few months ago. Pt was found to display some balance deficiencies, and it was recommended that she follow-up with a more extensive balance evaluation. Pt additionally notes that she has fairly severe knee pain constantly, left worse than right. Did have a fall in her yard ~8 months ago, was not able to get herself up off the ground until her neighbor stopped by and was able to lift her up. Occasionally experiences dizziness, notes she recently went to the ED for it, which occurs usually when moving too fast, was referred to two different ENTs , no one was able to find a cause, but she admits she does not experience these symptoms often. Treatment Goals Patient/Caregiver Goals I just want to be able to easily care for myself. Personal Factors Other Personal Factors That May Effect Pt lives alone in a mother-in- Therapy/Recovery law suite with her daughter and son-in-law next door for assistance. Single floor, no stairs to enter. Occasionally uses FWW around the house, mainly when walking to the bathroom in the middle of the night. PT-OP-C Subjective Start: 06/19/22 14:27 Freq: Status: Active Protocol: Document 09/12/22 11:20 DCW (Rec: 09/12/22 12:00 DCW [id number]) OP-PT Subjective Patient Comments Patient Comments This left knee is just always going to give me problems. PT-OP-D Balance Start: 06/19/22 14:27 Freq: Status: Active Protocol: Document 07/24/22 09:53 SP (Rec: 07/24/22 13:43 SP [id number]) Diaz Balance Assessment Evaluation Sitting to Standing Ability Independent w/Hands Unsupported Stance Safely- 2 minutes Sitting Unsupported, Feet on Floor Safely- 2 minutes Standing to Sitting Ability Independent, Uncontrolled Transfer Ability Safely, Minimal Hand Use Unsupported Stance- Eyes Closed Supervision, 10 seconds Unsupported Stance- Eyes Open Supervision to maintain Reaching Forward Standing Safely, 5 inches Pick- Up Object From Floor Independent/Safe Look Behind Shoulder - Standing Shifts Weight Well Turning 360 Degrees Turns Bilateral, < 4 secs Unsupported Stance, Alternating Feet on (I)- 8 Steps in 20 secs Stair Unsupported Tandem Stance Balance Lost- Step/Stand Unilateral Leg Stance Lifts Leg/Unable to Hold Total Score Diaz Total Score (out of 56 points) 42 Diaz Impairment Rating 20 to 39% Impaired (Score 34- 44) PT-OP-E Functional Tests Start: 06/19/22 14:27 Freq: Status: Active Protocol: Document 06/19/22 11:15 DCW (Rec: 06/19/22 15:40 DCW [id number]) Functional Tests Dynamic Gait Index (DGI) Score 12/24 DGI Impairment Rating 40 to <60% Impaired (Score 10- 14) PT-OP-M Strength Start: 06/19/22 14:27 Freq: Status: Active Protocol: Document 06/19/22 11:15 DCW (Rec: 06/19/22 15:40 DCW [id number]) Hip Strength Hip Manual Muscle Testing Right Flexion (L2) 3+ Fair+ Abduction 3+ Fair+ Adduction 4- Good- Left Flexion (L2) 4- Good- Abduction 3+ Fair+ Adduction 4- Good- Knee Strength Knee Manual Muscle Testing Right Flexion (S2) 4 Good Extension (L3) 3 Fair Left Flexion (S2) 4- Good- Extension (L3) 3 Fair Ankle/Foot Strength Ankle and Foot Manual Muscle Testing Right Dorsiflexion (L4) 4 Good Left Dorsiflexion (L4) 4 Good PT-OP-Q Treatments Start: 06/19/22 14:27 Freq: Status: Active Protocol: Document 09/12/22 11:20 DCW (Rec: 09/12/22 12:00 DCW [id number]) Cardio Equipment Recumbent Stepper (Sci-Fit) Duration (Minutes) 5 Resistance 4 Seat Position 9 Gym Equipment Shuttle Recovery Unilateral Squats Details 85-180 deg L knee Resistance 37# R, 25# L Shuttle Recovery Platform Stable Reps/Time 2x15 Bilateral Squats Details 85-180 deg L knee Resistance 75# (1 new band) Shuttle Recovery Platform Stable Reps/Time x20 Sport Cord red Exercise Details f/b/side R and L Cord/Resistance red Comments cued COG over EVA/mid foot, eccentric control and soft stepping with TA support. Neuro Re-Education Treatment Balance Activities Tandem Walk Details Tandem Walk Equipment // bars Reps/Duration 15 ' x5 laps Head turns Details Foam stance /c head turns Surface Blue Foam Comments Horizontal/Vertical head turns SLS Details SLS Equipment // bars PT-OP-T Assessment and Plan Start: 06/19/22 14:27 Freq: Status: Active Protocol: Document 09/12/22 11:20 DCW (Rec: 09/12/22 12:00 DCW [id number]) Physical Therapy Assessment Impairments Impairments Activity Tolerance,Balance, Functional Activities, Functional Mobility,Pain, Strength Goals Three Impairment Pt LE MMT between 3/5 and 4/5 bilaterally Dry Molder Goal (LTG) Pt LE MMT to score >4-/5 in all planes to demonstrate improved leg strength and stability to improve ability to perform floor transfers. LTG Duration 09/17/22 Two Impairment Pt presents as an increased falls risk, per Diaz (40/56) and DGI (07/27) Detention Goal (LTG) Pt to improve Diaz score by at least 6 points to 46/56 in order to demonstrate a decreased falls risk LTG Duration 09/17/22 progressin07/24/22 One Impairment Pt does not have an appropriate home exercise program Short Term Goal (STG) Pt to be independent and compliant with an appropriate HEP 07/17/22: heel raises, resisted ankle 3 way, band walk, stationary hip abd/ext. 09/09/22: ankle 4 way, band walks, STS from straight back chair and yoga personal: supine: ankle ROM, hip add/abd AROM, wrist/arm AROM front/ side/OH. 5x STS in 19 sec. STG Duration 09/17/22 progressin09/09/22 Assessment Summary Assessment Discussed with patient plan to add more visits to her schedule. She has decided that she is a bit worried about using up her authorization so soon in the year, and is thinking about waiting to do more therapy later on. Has decided to wait until reassessment next week to determine if she would like any further PT at this time. Physical Therapy Plan Frequency and Duration Frequency of Treatment 2x/Week Plan of Care Start Date 06/19/22 Plan of Care End Date 09/17/22 Therapeutic Interventions Therapeutic Interventions Aquatic Therapy,Balance Training,Home Exercise Program ,Manual Therapy,Neuromuscular Re-education,Patient/Caregiver Education,Self-Care/Home Management,Soft Tissue Mobilization,Therapeutic Activities,Therapeutic Exercises Next Visit Focus/Plan Next Note Type Progress Note Next Visit Plan PN next visit POC: Continue challenging balance with tandem walk, EC in corner w foam, hurdles.
--- NOTE | 2022-09-17 12:20 | PT.OPPOC ---
Physical, Occupational & Speech Therapy At [facility] Current Diagnoses Unsteadiness on feet (09/17/22) Other abnormalities of gait and mobility (09/17/22) Repeated falls (09/17/22) Visit Care Team Role Provider Type Kaleb Baltazar DO Attending Provider Physician Family Provider Primary Care Provider Referring Provider Specialty: [facility] Address: [address] [place] [address], [facility] Email: Plan Of Care PT-OP-T Assessment and Plan Start: 06/19/22 14:27 Freq: Status: Active Protocol: Document 09/17/22 11:35 DCW (Rec: 09/17/22 12:20 DCW [id number]) Physical Therapy Assessment Impairments Impairments Activity Tolerance,Balance, Functional Activities, Functional Mobility,Pain, Strength Goals Three Impairment Pt LE MMT between 3/5 and 4/5 bilaterally Intermediate Goal (LTG) Pt LE MMT to score >4-/5 in all planes to demonstrate improved leg strength and stability to improve ability to perform floor transfers. LTG Duration 11/15/22 - Improving Two Impairment Pt presents as an increased falls risk, per DGI () Short Term Goal (STG) Pt to improve Diaz score by at least 6 points to 46/56 in order to demonstrate a decreased falls risk STG Duration Met Shoe Repairer Apprentice Goal (LTG) Pt to improve DGI score by at least 3 points to 21/24 in order to demonstrate decreased falls risk LTG Duration 11/15/22 progressin07/24/22 One Impairment Pt does not have an appropriate home exercise program Short Term Goal (STG) Pt to be independent and compliant with an appropriate HEP 07/17/22: heel raises, resisted ankle 3 way, band walk, stationary hip abd/ext. 09/09/22: ankle 4 way, band walks, STS from straight back chair and yoga personal: supine: ankle ROM, hip add/abd AROM, wrist/arm AROM front/ side/OH. 5x STS in 19 sec. STG Duration 10/15/22 - Progressing Assessment Summary Assessment Pt showing very good improvement overall, Diaz score improved by 9 points compared to initial evaluation , and DGI improved by 6. Leg strength also showing improvement in nearly all planes, left knee flexion still biggest limiting factor. Pt continues to demonstrate increased fear of falling, admits she still has fairly low overall confidence in her balance. Should continue to benefit from skilled therapy in order to improve LE strength, decrease falls risk, and improve balance confidence. Physical Therapy Plan Frequency and Duration Frequency of Treatment 2x/Week Plan of Care Start Date 09/17/22 Plan of Care End Date 11/15/22 Therapeutic Interventions Therapeutic Interventions Aquatic Therapy,Balance Training,Home Exercise Program ,Manual Therapy,Neuromuscular Re-education,Patient/Caregiver Education,Self-Care/Home Management,Soft Tissue Mobilization,Therapeutic Activities,Therapeutic Exercises Next Visit Focus/Plan Next Note Type Treatment Note Next Visit Plan POC: Continue challenging balance with tandem walk, EC in corner w foam, hurdles. Plan of Care Dates Plan of Care Start Date 09/17/22 Plan of Care End Date 11/15/22 Electronically Signed by: Александр Segura, PT 09/19/22 0932 If you are in agreement with this Plan of Care, please return a signed and dated copy. I have reviewed this Plan of Care and certify that the skilled therapy services above are required to meet the patient?s needs. Physician Signature Date Printed Name and Credentials Clinical Instructor Signature Printed Name and Credentials
--- NOTE | 2022-09-17 12:20 | PT.OTN ---
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 PT-OP-B Current Condition Start: 06/19/22 14:27 Freq: Status: Active Protocol: Document 06/19/22 11:15 DCW (Rec: 06/19/22 15:40 DCW [id number]) Current Condition History of Current Condition Onset Date Multi-year history Current Complaints Falls, imbalance, weakness, knee pain History of Current Condition Pt is an 82 year old female presenting to skilled therapy following a balance screen at the [facility] a few months ago. Pt was found to display some balance deficiencies, and it was recommended that she follow-up with a more extensive balance evaluation. Pt additionally notes that she has fairly severe knee pain constantly, left worse than right. Did have a fall in her yard ~8 months ago, was not able to get herself up off the ground until her neighbor stopped by and was able to lift her up. Occasionally experiences dizziness, notes she recently went to the ED for it, which occurs usually when moving too fast, was referred to two different ENTs , no one was able to find a cause, but she admits she does not experience these symptoms often. Treatment Goals Patient/Caregiver Goals I just want to be able to easily care for myself. Personal Factors Other Personal Factors That May Effect Pt lives alone in a mother-in- Therapy/Recovery law suite with her daughter and son-in-law next door for assistance. Single floor, no stairs to enter. Occasionally uses FWW around the house, mainly when walking to the bathroom in the middle of the night. PT-OP-C Subjective Start: 06/19/22 14:27 Freq: Status: Active Protocol: Document 09/17/22 11:35 DCW (Rec: 09/17/22 12:20 DCW [id number]) OP-PT Subjective Patient Comments Patient Comments Pt reports that her left knee is bothering her, but overall feeling pretty good. PT-OP-D Balance Start: 06/19/22 14:27 Freq: Status: Active Protocol: Document 09/17/22 11:35 DCW (Rec: 09/17/22 11:57 DCW [id number]) Balance Tests Diaz Balance Test Diaz Balance Test Score 49/56 Diaz Impairment Rating 1 to 19% Impaired (Score 45-55 ) Diaz Balance Assessment Evaluation Sitting to Standing Ability Independent w/out Hands Unsupported Stance Safely- 2 minutes Sitting Unsupported, Feet on Floor Safely- 2 minutes Standing to Sitting Ability Safely, Minimal Hand Use Transfer Ability Safely, Minimal Hand Use Unsupported Stance- Eyes Closed Safely, 10 seconds Unsupported Stance- Eyes Open Independent, 1 minute Reaching Forward Standing Safely, 5 inches Pick- Up Object From Floor Independent/Safe Look Behind Shoulder - Standing Shifts Weight Well Turning 360 Degrees Turns , < 4 secs Unsupported Stance, Alternating Feet on (I)- 8 Steps in 20 secs Stair Unsupported Tandem Stance Small Step- 30 seconds Unilateral Leg Stance Lifts Leg/Unable to Hold Total Score Diaz Total Score (out of 56 points) 49 Diaz Impairment Rating 1 to 19% Impaired (Score 45-55 ) PT-OP-E Functional Tests Start: 06/19/22 14:27 Freq: Status: Active Protocol: Document 09/17/22 11:35 DCW (Rec: 09/17/22 11:57 DCW [id number]) Functional Tests Dynamic Gait Index (DGI) Score 18/24 DGI Impairment Rating 20 to <40% Impaired (Score 15- 19) PT-OP-M Strength Start: 06/19/22 14:27 Freq: Status: Active Protocol: Document 09/17/22 11:35 DCW (Rec: 09/17/22 11:57 DCW [id number]) Hip Strength Hip Manual Muscle Testing Right Flexion (L2) 4- Good- Abduction 4- Good- Adduction 4 Good Left Flexion (L2) 3+ Fair+ Abduction 4- Good- Adduction 4 Good Knee Strength Knee Manual Muscle Testing Right Flexion (S2) 4+ Good+ Extension (L3) 4 Good Left Flexion (S2) 4 Good Extension (L3) 4- Good- Ankle/Foot Strength Ankle and Foot Manual Muscle Testing Right Dorsiflexion (L4) 4+ Good+ Left Dorsiflexion (L4) 4+ Good+ PT-OP-Q Treatments Start: 06/19/22 14:27 Freq: Status: Active Protocol: Document 09/17/22 11:35 DCW (Rec: 09/17/22 12:20 DCW [id number]) Neuro Re-Education Treatment Other Activities Testing Details Diaz, DGI, MMT Self-Care/Home Management Treatment Activities Self-Care/Home Management Activities Plans for treatment, goals to work toward discharge, importance of improving confidence and decreasing fear of falling PT-OP-T Assessment and Plan Start: 06/19/22 14:27 Freq: Status: Active Protocol: Document 09/17/22 11:35 DCW (Rec: 09/17/22 12:20 DCW [id number]) Physical Therapy Assessment Impairments Impairments Activity Tolerance,Balance, Functional Activities, Functional Mobility,Pain, Strength Goals Three Impairment Pt LE MMT between 3/5 and 4/5 bilaterally Hydrometeorologist Goal (LTG) Pt LE MMT to score >4-/5 in all planes to demonstrate improved leg strength and stability to improve ability to perform floor transfers. LTG Duration 11/15/22 - Improving Two Impairment Pt presents as an increased falls risk, per DGI () Short Term Goal (STG) Pt to improve Diaz score by at least 6 points to 46/56 in order to demonstrate a decreased falls risk STG Duration Met Hydrometeorologist Goal (LTG) Pt to improve DGI score by at least 3 points to in order to demonstrate decreased falls risk LTG Duration 09/17/22 progressin07/24/22 One Impairment Pt does not have an appropriate home exercise program Short Term Goal (STG) Pt to be independent and compliant with an appropriate HEP 07/17/22: heel raises, resisted ankle 3 way, band walk, stationary hip abd/ext. 09/09/22: ankle 4 way, band walks, STS from straight back chair and yoga personal: supine: ankle ROM, hip add/abd AROM, wrist/arm AROM front/ side/OH. 5x STS in 19 sec. STG Duration 10/15/22 - Progressing Assessment Summary Assessment Pt showing very good improvement overall, Diaz score improved by 9 points compared to initial evaluation , and DGI improved by 6. Leg strength also showing improvement in nearly all planes, left knee flexion still biggest limiting factor. Pt continues to demonstrate increased fear of falling, admits she still has fairly low overall confidence in her balance. Should continue to benefit from skilled therapy in order to improve LE strength, decrease falls risk, and improve balance confidence. Physical Therapy Plan Frequency and Duration Frequency of Treatment 2x/Week Plan of Care Start Date 06/19/22 Plan of Care End Date 09/17/22 Therapeutic Interventions Therapeutic Interventions Aquatic Therapy,Balance Training,Home Exercise Program ,Manual Therapy,Neuromuscular Re-education,Patient/Caregiver Education,Self-Care/Home Management,Soft Tissue Mobilization,Therapeutic Activities,Therapeutic Exercises Next Visit Focus/Plan Next Note Type Treatment Note Next Visit Plan POC: Continue challenging balance with tandem walk, EC in corner w foam, hurdles.
--- NOTE | 2022-09-17 12:20 | PT.OPPOC ---
Physical, Occupational & Speech Therapy At [facility] Current Diagnoses Unsteadiness on feet (09/17/22) Other abnormalities of gait and mobility (09/17/22) Repeated falls (09/17/22) Visit Care Team Role Provider Type Kaleb Baltazar DO Attending Provider Physician Family Provider Primary Care Provider Referring Provider Specialty: [facility] Address: [address] [place] [address], [facility] Email: Plan Of Care PT-OP-T Assessment and Plan Start: 06/19/22 14:27 Freq: Status: Active Protocol: Document 09/17/22 11:35 DCW (Rec: 09/17/22 12:20 DCW [id number]) Physical Therapy Assessment Impairments Impairments Activity Tolerance,Balance, Functional Activities, Functional Mobility,Pain, Strength Goals Three Impairment Pt LE MMT between 3/5 and 4/5 bilaterally Shelter Goal (LTG) Pt LE MMT to score >4-/5 in all planes to demonstrate improved leg strength and stability to improve ability to perform floor transfers. LTG Duration 11/15/22 - Improving Two Impairment Pt presents as an increased falls risk, per DGI () Short Term Goal (STG) Pt to improve Diaz score by at least 6 points to 46/56 in order to demonstrate a decreased falls risk STG Duration Met Prior Authorization Technician Goal (LTG) Pt to improve DGI score by at least 3 points to 21/24 in order to demonstrate decreased falls risk LTG Duration 09/17/22 progressin07/24/22 One Impairment Pt does not have an appropriate home exercise program Short Term Goal (STG) Pt to be independent and compliant with an appropriate HEP 07/17/22: heel raises, resisted ankle 3 way, band walk, stationary hip abd/ext. 09/09/22: ankle 4 way, band walks, STS from straight back chair and yoga personal: supine: ankle ROM, hip add/abd AROM, wrist/arm AROM front/ side/OH. 5x STS in 19 sec. STG Duration 10/15/22 - Progressing Assessment Summary Assessment Pt showing very good improvement overall, Diaz score improved by 9 points compared to initial evaluation , and DGI improved by 6. Leg strength also showing improvement in nearly all planes, left knee flexion still biggest limiting factor. Pt continues to demonstrate increased fear of falling, admits she still has fairly low overall confidence in her balance. Should continue to benefit from skilled therapy in order to improve LE strength, decrease falls risk, and improve balance confidence. Physical Therapy Plan Frequency and Duration Frequency of Treatment 2x/Week Plan of Care Start Date 06/19/22 Plan of Care End Date 09/17/22 Therapeutic Interventions Therapeutic Interventions Aquatic Therapy,Balance Training,Home Exercise Program ,Manual Therapy,Neuromuscular Re-education,Patient/Caregiver Education,Self-Care/Home Management,Soft Tissue Mobilization,Therapeutic Activities,Therapeutic Exercises Next Visit Focus/Plan Next Note Type Treatment Note Next Visit Plan POC: Continue challenging balance with tandem walk, EC in corner w foam, hurdles. Plan of Care Dates Plan of Care Start Date 06/19/22 Plan of Care End Date 09/17/22 Electronically Signed by: Александр Segura, PT 09/17/22 8827 If you are in agreement with this Plan of Care, please return a signed and dated copy. I have reviewed this Plan of Care and certify that the skilled therapy services above are required to meet the patient?s needs. Physician Signature Date Printed Name and Credentials Clinical Instructor Signature Printed Name and Credentials
--- NOTE | 2022-09-20 13:00 | PT.OTN ---
Current Diagnoses Unsteadiness on feet (09/20/22) Other abnormalities of gait and mobility (09/20/22) Repeated falls (09/20/22) Physical Therapy Treatment Note PT-OP-A Visit Information Start: 06/19/22 14:27 Freq: Status: Active Protocol: Document 09/20/22 12:22 SP (Rec: 09/20/22 13:04 SP [id number]) Out-Patient Physical Therapy Visit Information Visit Information Visit Type Treatment Note Visit Start Time 12:19 Visit Stop Time 13:00 Total Visit Minutes 41 Visit Number 16 Number of MANAGER RETENTION Visits 1 Evaluation Information Evaluation Date 06/19/22 PT-OP-B Current Condition Start: 06/19/22 14:27 Freq: Status: Active Protocol: Document 06/19/22 11:15 DCW (Rec: 06/19/22 15:40 DCW [id number]) Current Condition History of Current Condition Onset Date Multi-year history Current Complaints Falls, imbalance, weakness, knee pain History of Current Condition Pt is an 82 year old female presenting to skilled therapy following a balance screen at the [facility] a few months ago. Pt was found to display some balance deficiencies, and it was recommended that she follow-up with a more extensive balance evaluation. Pt additionally notes that she has fairly severe knee pain constantly, left worse than right. Did have a fall in her yard ~8 months ago, was not able to get herself up off the ground until her neighbor stopped by and was able to lift her up. Occasionally experiences dizziness, notes she recently went to the ED for it, which occurs usually when moving too fast, was referred to two different ENTs , no one was able to find a cause, but she admits she does not experience these symptoms often. Treatment Goals Patient/Caregiver Goals I just want to be able to easily care for myself. Personal Factors Other Personal Factors That May Effect Pt lives alone in a mother-in- Therapy/Recovery law suite with her daughter and son-in-law next door for assistance. Single floor, no stairs to enter. Occasionally uses FWW around the house, mainly when walking to the bathroom in the middle of the night. PT-OP-C Subjective Start: 06/19/22 14:27 Freq: Status: Active Protocol: Document 09/20/22 12:22 SP (Rec: 09/20/22 13:04 SP [id number]) OP-PT Subjective Patient Comments Patient Comments Pt reports wish L knee wasn't limiting her to better sit stand. PT-OP-D Balance Start: 06/19/22 14:27 Freq: Status: Active Protocol: Document 09/17/22 11:35 DCW (Rec: 09/17/22 11:57 DCW [id number]) Balance Tests Diaz Balance Test Diaz Balance Test Score 49/56 Diaz Impairment Rating 1 to 19% Impaired (Score 45-55 ) Diaz Balance Assessment Evaluation Sitting to Standing Ability Independent w/out Hands Unsupported Stance Safely- 2 minutes Sitting Unsupported, Feet on Floor Safely- 2 minutes Standing to Sitting Ability Safely, Minimal Hand Use Transfer Ability Safely, Minimal Hand Use Unsupported Stance- Eyes Closed Safely, 10 seconds Unsupported Stance- Eyes Open Independent, 1 minute Reaching Forward Standing Safely, 5 inches Pick- Up Object From Floor Independent/Safe Look Behind Shoulder - Standing Shifts Weight Well Turning 360 Degrees Turns , < 4 secs Unsupported Stance, Alternating Feet on (I)- 8 Steps in 20 secs Stair Unsupported Tandem Stance Small Step- 30 seconds Unilateral Leg Stance Lifts Leg/Unable to Hold Total Score Diaz Total Score (out of 56 points) 49 Diaz Impairment Rating 1 to 19% Impaired (Score 45-55 ) PT-OP-E Functional Tests Start: 06/19/22 14:27 Freq: Status: Active Protocol: Document 09/17/22 11:35 DCW (Rec: 09/17/22 11:57 DCW [id number]) Functional Tests Dynamic Gait Index (DGI) Score 18/24 DGI Impairment Rating 20 to <40% Impaired (Score 15- 19) PT-OP-M Strength Start: 06/19/22 14:27 Freq: Status: Active Protocol: Document 09/17/22 11:35 DCW (Rec: 09/17/22 11:57 DCW [id number]) Hip Strength Hip Manual Muscle Testing Right Flexion (L2) 4- Good- Abduction 4- Good- Adduction 4 Good Left Flexion (L2) 3+ Fair+ Abduction 4- Good- Adduction 4 Good Knee Strength Knee Manual Muscle Testing Right Flexion (S2) 4+ Good+ Extension (L3) 4 Good Left Flexion (S2) 4 Good Extension (L3) 4- Good- Ankle/Foot Strength Ankle and Foot Manual Muscle Testing Right Dorsiflexion (L4) 4+ Good+ Left Dorsiflexion (L4) 4+ Good+ PT-OP-Q Treatments Start: 06/19/22 14:27 Freq: Status: Active Protocol: Document 09/20/22 12:22 SP (Rec: 09/20/22 13:04 SP [id number]) Gym Equipment Shuttle Recovery Unilateral Squats Details 17-72 deg L knee- tolerated range Resistance 37#> 50# R, 25# L (1 new band) Shuttle Recovery Platform Stable Reps/Time 2x15 alternate LEs Bilateral Squats Details 17-78 deg L knee- tolerated range L Resistance 75# (1 new band) Shuttle Recovery Platform Stable Reps/Time x20 Therapeutic Exercises Standing Exercises resisted side stepping Standing Exercise Name F/B/ side stepping Resistance red (GTB next tx) Equipment Used contact rail light 1 UE Reps/Minutes 10 ft x3 laps each direction Comments cued trail LE clearance, no SB but tall posturing Gait Training Gait Activity dynamic gait Description HTs, increase amplitude Device Used 0 Level of Assistance CG-5%A Surface tile Distance/Duration 50 ft x4 laps Treatment Focus increase EVA, posturing, core/ hip abd fac Comments improved stabiltiy with reps, slower HTs L than R, scissor step x4, able recognize and self correct core/posturing post ed for stabiltiy and EVA Neuro Re-Education Treatment Balance Activities Tandem Walk Details Tandem Walk Equipment // bars 2x10 light PRN touch, Reps/Duration outside bars 10 ft x4 laps CG- 5%A occasional suport needed during scissor Comments 50% time tandem, 50 % semitandem PT-OP-T Assessment and Plan Start: 06/19/22 14:27 Freq: Status: Active Protocol: Document 09/20/22 12:22 SP (Rec: 09/20/22 13:04 SP [id number]) Physical Therapy Assessment Goals Three Impairment Pt LE MMT between 3/5 and 4/5 bilaterally Longterm Goal (LTG) Pt LE MMT to score >4-/5 in all planes to demonstrate improved leg strength and stability to improve ability to perform floor transfers. LTG Duration 11/15/22 - Improving Two Impairment Pt presents as an increased falls risk, per DGI () Short Term Goal (STG) Pt to improve Diaz score by at least 6 points to 46/56 in order to demonstrate a decreased falls risk STG Duration Met Longterm Goal (LTG) Pt to improve DGI score by at least 3 points to 2124 in order to demonstrate decreased falls risk LTG Duration 11/15/22 progressin07/24/22 One Impairment Pt does not have an appropriate home exercise program Short Term Goal (STG) Pt to be independent and compliant with an appropriate HEP 07/17/22: heel raises, resisted ankle 3 way, band walk, stationary hip abd/ext. 09/09/22: ankle 4 way, band walks, STS from straight back chair and yoga personal: supine: ankle ROM, hip add/abd AROM, wrist/arm AROM front/ side/OH. 5x STS in 19 sec. STG Duration 10/15/22 - Progressing Assessment Summary Assessment Pt improved self recognizing posturing, core fac and awareness of EVA wider with HTs for safety in parkinglot scanning. Physical Therapy Plan Frequency and Duration Frequency of Treatment 2x/Week Plan of Care Start Date 09/17/22 Plan of Care End Date 11/15/22 Therapeutic Interventions Therapeutic Interventions Aquatic Therapy,Balance Training,Home Exercise Program ,Manual Therapy,Neuromuscular Re-education,Patient/Caregiver Education,Self-Care/Home Management,Soft Tissue Mobilization,Therapeutic Activities,Therapeutic Exercises Next Visit Focus/Plan Next Note Type Treatment Note Next Visit Plan POC: Continue challenging balance with tandem walk, EC in corner w foam, hurdles.
--- NOTE | 2022-10-09 10:30 | PT.OTN ---
Current Diagnoses Unsteadiness on feet (10/09/22) Other abnormalities of gait and mobility (10/09/22) Repeated falls (10/09/22) Physical Therapy Treatment Note PT-OP-A Visit Information Start: 06/19/22 14:27 Freq: Status: Active Protocol: Document 10/09/22 09:52 SP (Rec: 10/09/22 10:32 SP [id number]) Out-Patient Physical Therapy Visit Information Visit Information Visit Type Treatment Note Visit Start Time 09:52 Visit Stop Time 10:30 Total Visit Minutes 38 Visit Number 17 Number of SERVICE STATION CONSOLE OPERATOR Visits 2 Evaluation Information Evaluation Date 06/19/22 Precautions Precautions 07/12: 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 PT-OP-B Current Condition Start: 06/19/22 14:27 Freq: Status: Active Protocol: Document 06/19/22 11:15 DCW (Rec: 06/19/22 15:40 DCW [id number]) Current Condition History of Current Condition Onset Date Multi-year history Current Complaints Falls, imbalance, weakness, knee pain History of Current Condition Pt is an 82 year old female presenting to skilled therapy following a balance screen at [facility] a few months ago. Pt was found to display some balance deficiencies, and it was recommended that she follow-up with a more extensive balance evaluation. Pt additionally notes that she has fairly severe knee pain constantly, left worse than right. Did have a fall in her yard ~8 months ago, was not able to get herself up off the ground until her neighbor stopped by and was able to lift her up. Occasionally experiences dizziness, notes she recently went to the ED for it, which occurs usually when moving too fast, was referred to two different ENTs , no one was able to find a cause, but she admits she does not experience these symptoms often. Treatment Goals Patient/Caregiver Goals I just want to be able to easily care for myself. Personal Factors Other Personal Factors That May Effect Pt lives alone in a mother-in- Therapy/Recovery law suite with her daughter and son-in-law next door for assistance. Single floor, no stairs to enter. Occasionally uses FWW around the house, mainly when walking to the bathroom in the middle of the night. PT-OP-C Subjective Start: 06/19/22 14:27 Freq: Status: Active Protocol: Document 10/09/22 09:52 SP (Rec: 10/09/22 10:32 SP [id number]) OP-PT Subjective Patient Comments Patient Comments Pt reports doing HEP and going for walks when nice outside. PT-OP-D Balance Start: 06/19/22 14:27 Freq: Status: Active Protocol: Document 09/17/22 11:35 DCW (Rec: 09/17/22 11:57 DCW [id number]) Balance Tests Diaz Balance Test Diaz Balance Test Score 49/56 Diaz Impairment Rating 1 to 19% Impaired (Score 45-55 ) Diaz Balance Assessment Evaluation Sitting to Standing Ability Independent w/out Hands Unsupported Stance Safely- 2 minutes Sitting Unsupported, Feet on Floor Safely- 2 minutes Standing to Sitting Ability Safely, Minimal Hand Use Transfer Ability Safely, Minimal Hand Use Unsupported Stance- Eyes Closed Safely, 10 seconds Unsupported Stance- Eyes Open Independent, 1 minute Reaching Forward Standing Safely, 5 inches Pick- Up Object From Floor Independent/Safe Look Behind Shoulder - Standing Shifts Weight Well Turning 360 Degrees Turns , < 4 secs Unsupported Stance, Alternating Feet on (I)- 8 Steps in 20 secs Stair Unsupported Tandem Stance Small Step- 30 seconds Unilateral Leg Stance Lifts Leg/Unable to Hold Total Score Diaz Total Score (out of 56 points) 49 Diaz Impairment Rating 1 to 19% Impaired (Score 45-55 ) PT-OP-E Functional Tests Start: 06/19/22 14:27 Freq: Status: Active Protocol: Document 09/17/22 11:35 DCW (Rec: 09/17/22 11:57 DCW [id number]) Functional Tests Dynamic Gait Index (DGI) Score 18/24 DGI Impairment Rating 20 to <40% Impaired (Score 15- 19) PT-OP-M Strength Start: 06/19/22 14:27 Freq: Status: Active Protocol: Document 09/17/22 11:35 DCW (Rec: 09/17/22 11:57 DCW [id number]) Hip Strength Hip Manual Muscle Testing Right Flexion (L2) 4- Good- Abduction 4- Good- Adduction 4 Good Left Flexion (L2) 3+ Fair+ Abduction 4- Good- Adduction 4 Good Knee Strength Knee Manual Muscle Testing Right Flexion (S2) 4+ Good+ Extension (L3) 4 Good Left Flexion (S2) 4 Good Extension (L3) 4- Good- Ankle/Foot Strength Ankle and Foot Manual Muscle Testing Right Dorsiflexion (L4) 4+ Good+ Left Dorsiflexion (L4) 4+ Good+ PT-OP-Q Treatments Start: 06/19/22 14:27 Freq: Status: Active Protocol: Document 10/09/22 09:52 SP (Rec: 10/09/22 10:32 SP [id number]) Gym Equipment Sport Cord red Exercise Details f/b/side R and L Cord/Resistance red Comments cued COG over EVA/mid foot, eccentric control and soft stepping with TA support. Occasional retro lean LOB Min A recover. Gait Training Gait Activity dynamic gait Description HTs, increase amplitude- carrying cup water Device Used 0 Level of Assistance CG-5%A Surface tile Distance/Duration 50 ft x4 laps (hallway) Treatment Focus increase EVA, posturing, core/ hip abd fac Comments improved stabiltiy with reps, noted slower pacing during HTs . She improved stability and less scissor step or trunk sways carrying cup water and cues for squeeze shoulder blades Neuro Re-Education Treatment Balance Activities corner balance Details Review for added HEP Surface firm Equipment corner at back ,chair front Comments 1. NBOS: HTs- stable, EC to 30 2. Semi tandem stance, HTs 10/09/22 instructed start as HEP Tandem Walk Details Tandem Walk Equipment hallway light back maker contact wall Reps/Duration 15 ft x2 laps Comments 50% time tandem, 50 % semitandem, had scissor step LOB x3 Min A and rail contact recovery. Improved 10 ft carrying cup water CGA. Hurdles Details Hurdles/Foam Surface out in open, gait belt Equipment 6 hurdles, green/blue/salvador foam oval cushions Reps/Duration 2 laps Comments just hurdles: CG-5%A (GB) hurdles and foam: CG- 20%A GB & PORTABLE TRACK CREW CHIEF- cued increase knee/hip flexion to clear karen, tall scap retraction/core engagement w/posturing COG over stance LE full foot. Foam to challenging. PT-OP-T Assessment and Plan Start: 06/19/22 14:27 Freq: Status: Active Protocol: Document 10/09/22 09:52 SP (Rec: 10/09/22 10:32 SP [id number]) Physical Therapy Assessment Goals Three Impairment Pt LE MMT between 3/5 and 4/5 bilaterally Long-Term Goal (LTG) Pt LE MMT to score >4-/5 in all planes to demonstrate improved leg strength and stability to improve ability to perform floor transfers. LTG Duration 11/15/22 - Improving Two Impairment Pt presents as an increased falls risk, per DGI () Short Term Goal (STG) Pt to improve Diaz score by at least 6 points to 46/56 in order to demonstrate a decreased falls risk STG Duration Met [employer] Goal (LTG) Pt to improve DGI score by at least 3 points to 24 in order to demonstrate decreased falls risk LTG Duration 11/15/22 progressin07/24/22 One Impairment Pt does not have an appropriate home exercise program Short Term Goal (STG) Pt to be independent and compliant with an appropriate HEP 07/17/22: heel raises, resisted ankle 3 way, band walk, stationary hip abd/ext. 09/09/22: ankle 4 way, band walks, STS from straight back chair and yoga personal: supine: ankle ROM, hip add/abd AROM, wrist/arm AROM front/ side/OH. 5x STS in 19 sec. STG Duration 10/15/22 - Progressing Assessment Summary Assessment Pt improved stability/ less trunk leans over wt shift during head turns, post cues for taller posture, core fac, while carrying cup water during dynamic gait and tandem walking. Physical Therapy Plan Frequency and Duration Frequency of Treatment 2x/Week Plan of Care Start Date 09/17/22 Plan of Care End Date 11/15/22 Therapeutic Interventions Therapeutic Interventions Aquatic Therapy,Balance Training,Home Exercise Program ,Manual Therapy,Neuromuscular Re-education,Patient/Caregiver Education,Self-Care/Home Management,Soft Tissue Mobilization,Therapeutic Activities,Therapeutic Exercises Next Visit Focus/Plan Next Note Type Treatment Note Next Visit Plan Recheck HEP condense if needed , included corner balance last tx w/ HO. POC: Continue challenging balance with tandem walk, EC in corner w foam, hurdles.
--- NOTE | 2022-10-11 15:15 | PT.OTN ---
Current Diagnoses Unsteadiness on feet (10/11/22) Other abnormalities of gait and mobility (10/11/22) Repeated falls (10/11/22) Physical Therapy Treatment Note PT-OP-A Visit Information Start: 06/19/22 14:27 Freq: Status: Active Protocol: Document 10/11/22 14:35 SP (Rec: 10/11/22 15:41 SP [id number]) Out-Patient Physical Therapy Visit Information Visit Information Visit Type Treatment Note Visit Start Time 14:35 Visit Stop Time 15:15 Total Visit Minutes 40 Visit Number 18 Number of AUTOMOTIVE PARTS COORDINATOR Visits 3 Evaluation Information Evaluation Date 06/19/22 Precautions Precautions 07/12: 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 PT-OP-B Current Condition Start: 06/19/22 14:27 Freq: Status: Active Protocol: Document 06/19/22 11:15 DCW (Rec: 06/19/22 15:40 DCW [id number]) Current Condition History of Current Condition Onset Date Multi-year history Current Complaints Falls, imbalance, weakness, knee pain History of Current Condition Pt is an 82 year old female presenting to skilled therapy following a balance screen at the [facility] a few months ago. Pt was found to display some balance deficiencies, and it was recommended that she follow-up with a more extensive balance evaluation. Pt additionally notes that she has fairly severe knee pain constantly, left worse than right. Did have a fall in her yard ~8 months ago, was not able to get herself up off the ground until her neighbor stopped by and was able to lift her up. Occasionally experiences dizziness, notes she recently went to the ED for it, which occurs usually when moving too fast, was referred to two different ENTs , no one was able to find a cause, but she admits she does not experience these symptoms often. Treatment Goals Patient/Caregiver Goals I just want to be able to easily care for myself. Personal Factors Other Personal Factors That May Effect Pt lives alone in a mother-in- Therapy/Recovery law suite with her daughter and son-in-law next door for assistance. Single floor, no stairs to enter. Occasionally uses FWW around the house, mainly when walking to the bathroom in the middle of the night. PT-OP-C Subjective Start: 06/19/22 14:27 Freq: Status: Active Protocol: Document 10/11/22 14:35 SP (Rec: 10/11/22 15:41 SP [id number]) OP-PT Subjective Patient Comments Patient Comments Pt reports stated usually takes 30 min to walk 8 blocks and after last tx did it in 19 min, very slight incline/ decline in beginning. PT-OP-D Balance Start: 06/19/22 14:27 Freq: Status: Active Protocol: Document 09/17/22 11:35 DCW (Rec: 09/17/22 11:57 DCW [id number]) Balance Tests Diaz Balance Test Diaz Balance Test Score 49/56 Diaz Impairment Rating 1 to 19% Impaired (Score 45-55 ) Diaz Balance Assessment Evaluation Sitting to Standing Ability Independent w/out Hands Unsupported Stance Safely- 2 minutes Sitting Unsupported, Feet on Floor Safely- 2 minutes Standing to Sitting Ability Safely, Minimal Hand Use Transfer Ability Safely, Minimal Hand Use Unsupported Stance- Eyes Closed Safely, 10 seconds Unsupported Stance- Eyes Open Independent, 1 minute Reaching Forward Standing Safely, 5 inches Pick- Up Object From Floor Independent/Safe Look Behind Shoulder - Standing Shifts Weight Well Turning 360 Degrees Turns , < 4 secs Unsupported Stance, Alternating Feet on (I)- 8 Steps in 20 secs Stair Unsupported Tandem Stance Small Step- 30 seconds Unilateral Leg Stance Lifts Leg/Unable to Hold Total Score Diaz Total Score (out of 56 points) 49 Diaz Impairment Rating 1 to 19% Impaired (Score 45-55 ) PT-OP-E Functional Tests Start: 06/19/22 14:27 Freq: Status: Active Protocol: Document 09/17/22 11:35 DCW (Rec: 09/17/22 11:57 DCW [id number]) Functional Tests Dynamic Gait Index (DGI) Score 18/24 DGI Impairment Rating 20 to <40% Impaired (Score 15- 19) PT-OP-M Strength Start: 06/19/22 14:27 Freq: Status: Active Protocol: Document 09/17/22 11:35 DCW (Rec: 09/17/22 11:57 DCW [id number]) Hip Strength Hip Manual Muscle Testing Right Flexion (L2) 4- Good- Abduction 4- Good- Adduction 4 Good Left Flexion (L2) 3+ Fair+ Abduction 4- Good- Adduction 4 Good Knee Strength Knee Manual Muscle Testing Right Flexion (S2) 4+ Good+ Extension (L3) 4 Good Left Flexion (S2) 4 Good Extension (L3) 4- Good- Ankle/Foot Strength Ankle and Foot Manual Muscle Testing Right Dorsiflexion (L4) 4+ Good+ Left Dorsiflexion (L4) 4+ Good+ PT-OP-Q Treatments Start: 06/19/22 14:27 Freq: Status: Active Protocol: Document 10/11/22 14:35 SP (Rec: 10/11/22 15:41 SP [id number]) Cardio Equipment Recumbent Stepper (Sci-Fit) Duration (Minutes) 5 Resistance 3.5 Seat Position 9 Other UEs, LEs, 50-56 MPH, 0.86miles Gym Equipment Sport Cord red Exercise Details f/b/side R and L, 4 step ups (R asc/LLE desc), STS 16 step +bluefoam Cord/Resistance red Reps/Duration 5 reps each Comments cued soft stepping improved stabililty no sways today, challenged lead LLE step up due to pain/ irritation only 2 reps trialed. Gait Training Gait Activity dynamic gait Description HTs, increase amplitude- carrying cup water Device Used 0 Level of Assistance CG-5%A Surface tile Distance/Duration 50 ft x4 laps (hallway) Treatment Focus increase EVA, posturing, core/ hip abd fac Comments improved stabiltiy with reps, noted slower pacing during HTs . IMproved almost no scissor stepping while carrying cup water and cues for squeeze shoulder blades Neuro Re-Education Treatment Balance Activities carioca Details alternate step front/back Equipment facing rail Reps/Duration 10 ft x2 laps Comments light contact LOB self recovery- states L knee painfree. square patterning Details alternating in>stepoutside next block, alternate R and L Surface forward Equipment carpet squares Reps/Duration 10 ft x2 laps Comments cued x1 for proper patterning step taps Surface rail PRN needed Equipment 5# leg wt RLE, 2# leg wt LLE Reps/Duration x10 reps Comments cued slow soft stepping asc/ desc-improved control last 3 reps Tandem Walk Details Tandem Walk carrying cup water Equipment 30% time contact rail Reps/Duration 15 ft x4 laps Comments 75% time tandem, 25 % semitandem, had scissor step LOB x3 need rail contact recovery. Cues scapular squeeze- viers Amber when LLE stance and RLE advancement. PT-OP-T Assessment and Plan Start: 06/19/22 14:27 Freq: Status: Active Protocol: Document 10/11/22 14:35 SP (Rec: 10/11/22 15:41 SP [id number]) Physical Therapy Assessment Goals Three Impairment Pt LE MMT between 3/5 and 4/5 bilaterally Senior Living Goal (LTG) Pt LE MMT to score >4-/5 in all planes to demonstrate improved leg strength and stability to improve ability to perform floor transfers. LTG Duration 11/15/22 - Improving Two Impairment Pt presents as an increased falls risk, per DGI () Short Term Goal (STG) Pt to improve Diaz score by at least 6 points to 46/56 in order to demonstrate a decreased falls risk STG Duration Met Senior Living Goal (LTG) Pt to improve DGI score by at least 3 points to 24 in order to demonstrate decreased falls risk LTG Duration 11/15/22 progressin07/24/22 One Impairment Pt does not have an appropriate home exercise program Short Term Goal (STG) Pt to be independent and compliant with an appropriate HEP 07/17/22: heel raises, resisted ankle 3 way, band walk, stationary hip abd/ext. 09/09/22: ankle 4 way, band walks, STS from straight back chair and yoga personal: supine: ankle ROM, hip add/abd AROM, wrist/arm AROM front/ side/OH. 5x STS in 19 sec. STG Duration 10/15/22 - Progressing 09/09/22 Assessment Summary Assessment Pt improved tandem walk increase 25% of the time, occasional back sizer contact rail needed while opp UE carrying cup water. Good stability with coordination stepping squares and carioca initiated this tx. ALmost no scissor stepping with dynamic head turng during gait while carrying cup water. Physical Therapy Plan Frequency and Duration Frequency of Treatment 2x/Week Plan of Care Start Date 09/17/22 Plan of Care End Date 11/15/22 Therapeutic Interventions Therapeutic Interventions Aquatic Therapy,Balance Training,Home Exercise Program ,Manual Therapy,Neuromuscular Re-education,Patient/Caregiver Education,Self-Care/Home Management,Soft Tissue Mobilization,Therapeutic Activities,Therapeutic Exercises Next Visit Focus/Plan Next Note Type Treatment Note Next Visit Plan recheck if need condense HEP. POC: Continue challenging balance with tandem walk, EC in corner w foam, hurdles.
--- NOTE | 2022-10-15 14:11 | PT.OTN ---
Current Diagnoses Unsteadiness on feet (10/15/22) Other abnormalities of gait and mobility (10/15/22) Repeated falls (10/15/22) Physical Therapy Treatment Note PT-OP-A Visit Information Start: 06/19/22 14:27 Freq: Status: Active Protocol: Document 10/15/22 13:20 SP (Rec: 10/15/22 14:31 SP [id number]) Out-Patient Physical Therapy Visit Information Visit Information Visit Type Treatment Note Visit Start Time 13:20 Visit Stop Time 14:11 Total Visit Minutes 51 Visit Number 19 Number of RARE/ENDANGERED SPECIES SPECIALIST Visits 4 Evaluation Information Evaluation Date 06/19/22 Precautions Precautions 07/12: 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 PT-OP-B Current Condition Start: 06/19/22 14:27 Freq: Status: Active Protocol: Document 06/19/22 11:15 DCW (Rec: 06/19/22 15:40 DCW [id number]) Current Condition History of Current Condition Onset Date Multi-year history Current Complaints Falls, imbalance, weakness, knee pain History of Current Condition Pt is an 82 year old female presenting to skilled therapy following a balance screen at the [facility] a few months ago. Pt was found to display some balance deficiencies, and it was recommended that she follow-up with a more extensive balance evaluation. Pt additionally notes that she has fairly severe knee pain constantly, left worse than right. Did have a fall in her yard ~8 months ago, was not able to get herself up off the ground until her neighbor stopped by and was able to lift her up. Occasionally experiences dizziness, notes she recently went to the ED for it, which occurs usually when moving too fast, was referred to two different ENTs , no one was able to find a cause, but she admits she does not experience these symptoms often. Treatment Goals Patient/Caregiver Goals I just want to be able to easily care for myself. Personal Factors Other Personal Factors That May Effect Pt lives alone in a mother-in- Therapy/Recovery law suite with her daughter and son-in-law next door for assistance. Single floor, no stairs to enter. Occasionally uses FWW around the house, mainly when walking to the bathroom in the middle of the night. PT-OP-C Subjective Start: 06/19/22 14:27 Freq: Status: Active Protocol: Document 10/15/22 13:20 SP (Rec: 10/15/22 14:31 SP [id number]) OP-PT Subjective Patient Comments Patient Comments Pt reports isn't dizzy when wakes up in the am but feels really stiff first thing and not as balanced so has a FWW near by just in case needs. PT-OP-D Balance Start: 06/19/22 14:27 Freq: Status: Active Protocol: Document 09/17/22 11:35 DCW (Rec: 09/17/22 11:57 DCW [id number]) Balance Tests Diaz Balance Test Diaz Balance Test Score 49/56 Diaz Impairment Rating 1 to 19% Impaired (Score 45-55 ) Diaz Balance Assessment Evaluation Sitting to Standing Ability Independent w/out Hands Unsupported Stance Safely- 2 minutes Sitting Unsupported, Feet on Floor Safely- 2 minutes Standing to Sitting Ability Safely, Minimal Hand Use Transfer Ability Safely, Minimal Hand Use Unsupported Stance- Eyes Closed Safely, 10 seconds Unsupported Stance- Eyes Open Independent, 1 minute Reaching Forward Standing Safely, 5 inches Pick- Up Object From Floor Independent/Safe Look Behind Shoulder - Standing Shifts Weight Well Turning 360 Degrees Turns , < 4 secs Unsupported Stance, Alternating Feet on (I)- 8 Steps in 20 secs Stair Unsupported Tandem Stance Small Step- 30 seconds Unilateral Leg Stance Lifts Leg/Unable to Hold Total Score Diaz Total Score (out of 56 points) 49 Diaz Impairment Rating 1 to 19% Impaired (Score 45-55 ) PT-OP-E Functional Tests Start: 06/19/22 14:27 Freq: Status: Active Protocol: Document 09/17/22 11:35 DCW (Rec: 09/17/22 11:57 DCW [id number]) Functional Tests Dynamic Gait Index (DGI) Score 18/24 DGI Impairment Rating 20 to <40% Impaired (Score 15- 19) PT-OP-M Strength Start: 06/19/22 14:27 Freq: Status: Active Protocol: Document 09/17/22 11:35 DCW (Rec: 09/17/22 11:57 DCW [id number]) Hip Strength Hip Manual Muscle Testing Right Flexion (L2) 4- Good- Abduction 4- Good- Adduction 4 Good Left Flexion (L2) 3+ Fair+ Abduction 4- Good- Adduction 4 Good Knee Strength Knee Manual Muscle Testing Right Flexion (S2) 4+ Good+ Extension (L3) 4 Good Left Flexion (S2) 4 Good Extension (L3) 4- Good- Ankle/Foot Strength Ankle and Foot Manual Muscle Testing Right Dorsiflexion (L4) 4+ Good+ Left Dorsiflexion (L4) 4+ Good+ PT-OP-Q Treatments Start: 06/19/22 14:27 Freq: Status: Active Protocol: Document 10/15/22 13:20 SP (Rec: 10/15/22 14:31 SP [id number]) Cardio Equipment Recumbent Stepper (Sci-Fit) Duration (Minutes) 6 Resistance 3.5 Seat Position 9 Other UEs, LEs, 50-56 MPH, 0.86miles Therapeutic Exercises Supine Exercises warm up HEP Supine Exercise Name LTR, TA SLR, HS, Side: open book Side bilateral Reps/Minutes x 5 reps each Comments good feedback ROM, cued head turn with arm open book. Sitting Exercises STS Sitting Exercise Name reviewed HEP warm up coming to standing Resistance AROM arms across chest Equipment Used mesh chair Reps/Minutes warm up am 5 reps, 5x STS in 15 sec, Comments good form Therapeutic Activity Therapeutic Activity Floor Transfers Name Min A 1/2 kneel<> side sitting , Mod A ascend Reps/Minutes x1 B UE support on black mat table Comments Floor transfer: stand<>1/2 kneel<>side sit<> long sit<> supine Gait Training Gait Activity dynamic gait Description HTs, increase amplitude- carrying cup water then none Device Used 0 Level of Assistance SBA- CGA Surface carpet Distance/Duration 50 ft x2 laps between machines Treatment Focus increase EVA, posturing, core/ hip abd fac Comments improved stabiltiy with reps, noted light slower pacing during HTs. IMproved almost no scissor stepping no cup after 1 lap carrying cup water and cues for tall/squeeze shoulder blades Neuro Re-Education Treatment Balance Activities corner balance Details Review HEP Surface firm Equipment corner at back ,chair front Reps/Duration 10 min Comments 1. NBOS: HTs- stable, EC to 30 2. Semi tandem stance, HTs HEP *Cued COG over full both feet and hands hover over back chair- improved timing PT-OP-T Assessment and Plan Start: 06/19/22 14:27 Freq: Status: Active Protocol: Document 10/15/22 13:20 SP (Rec: 10/15/22 14:31 SP [id number]) Physical Therapy Assessment Goals Three Impairment Pt LE MMT between 3/5 and 4/5 bilaterally Education Department Chair Goal (LTG) Pt LE MMT to score >4-/5 in all planes to demonstrate improved leg strength and stability to improve ability to perform floor transfers. 10/15/22: 5xSTS 15 sec. LTG Duration 11/15/22 - Improving 10/15/22 Two Impairment Pt presents as an increased falls risk, per DGI () Short Term Goal (STG) Pt to improve Diaz score by at least 6 points to 46/56 in order to demonstrate a decreased falls risk STG Duration Met Education Department Chair Goal (LTG) Pt to improve DGI score by at least 3 points to in order to demonstrate decreased falls risk LTG Duration 11/15/22 progressin07/24/22 One Impairment Pt does not have an appropriate home exercise program Short Term Goal (STG) Pt to be independent and compliant with an appropriate HEP 07/17/22: heel raises, resisted ankle 3 way, band walk, stationary hip abd/ext. 09/09/22: ankle 4 way, band walks, STS from straight back chair and yoga personal: supine: ankle ROM, hip add/abd AROM, wrist/arm AROM front/ side/OH. 5x STS in 19 sec. 10/15/22: reviewed corner balance, added LTR, HS, SLR, open book, STS pre warm up getting out of bed to lessen stiffness once up standing and improve stability. STG Duration 10/15/22 - Progressing 10/14/22 Assessment Summary Assessment Pt reported increase ROM and more stable post warm up ex supine/side. Improved stability tandem walking 50 ft without support end tx, post carrying cup water and cues squeeze scap. Pt better understanding of scap retraction fac with posture improved stability gait and little better increased pacing with HTs today. Pt was able to ascend/descend floor transfer with Min A descend, Mod A ascend to/from 1/2 kneel to side sit, noted R knee flexion little more than used to so was sore. No compliants end tx. Physical Therapy Plan Frequency and Duration Frequency of Treatment 2x/Week Plan of Care Start Date 09/17/22 Plan of Care End Date 11/15/22 Therapeutic Interventions Therapeutic Interventions Aquatic Therapy,Balance Training,Home Exercise Program ,Manual Therapy,Neuromuscular Re-education,Patient/Caregiver Education,Self-Care/Home Management,Soft Tissue Mobilization,Therapeutic Activities,Therapeutic Exercises Next Visit Focus/Plan Next Note Type Discharge Summary Next Visit Plan Nex tx pt ready for DC and finalize condense HEP, will bring HOs for feedback.
--- NOTE | 2022-10-23 14:30 | PT.OTN ---
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 PT-OP-B Current Condition Start: 06/19/22 14:27 Freq: Status: Active Protocol: Document 06/19/22 11:15 DCW (Rec: 06/19/22 15:40 DCW [id number]) Current Condition History of Current Condition Onset Date Multi-year history Current Complaints Falls, imbalance, weakness, knee pain History of Current Condition Pt is an 82 year old female presenting to skilled therapy following a balance screen at the [facility] a few months ago. Pt was found to display some balance deficiencies, and it was recommended that she follow-up with a more extensive balance evaluation. Pt additionally notes that she has fairly severe knee pain constantly, left worse than right. Did have a fall in her yard ~8 months ago, was not able to get herself up off the ground until her neighbor stopped by and was able to lift her up. Occasionally experiences dizziness, notes she recently went to the ED for it, which occurs usually when moving too fast, was referred to two different ENTs , no one was able to find a cause, but she admits she does not experience these symptoms often. Treatment Goals Patient/Caregiver Goals I just want to be able to easily care for myself. Personal Factors Other Personal Factors That May Effect Pt lives alone in a mother-in- Therapy/Recovery law suite with her daughter and son-in-law next door for assistance. Single floor, no stairs to enter. Occasionally uses FWW around the house, mainly when walking to the bathroom in the middle of the night. PT-OP-C Subjective Start: 06/19/22 14:27 Freq: Status: Active Protocol: Document 10/23/22 13:45 DCW (Rec: 10/23/22 14:29 DCW [id number]) OP-PT Subjective Patient Comments Patient Comments Pt brings in HEP handouts today, to discuss condensing HEP prior to discharge. PT-OP-D Balance Start: 06/19/22 14:27 Freq: Status: Active Protocol: Document 09/17/22 11:35 DCW (Rec: 09/17/22 11:57 DCW [id number]) Balance Tests Diaz Balance Test Diaz Balance Test Score 49/56 Diaz Impairment Rating 1 to 19% Impaired (Score 45-55 ) Diaz Balance Assessment Evaluation Sitting to Standing Ability Independent w/out Hands Unsupported Stance Safely- 2 minutes Sitting Unsupported, Feet on Floor Safely- 2 minutes Standing to Sitting Ability Safely, Minimal Hand Use Transfer Ability Safely, Minimal Hand Use Unsupported Stance- Eyes Closed Safely, 10 seconds Unsupported Stance- Eyes Open Independent, 1 minute Reaching Forward Standing Safely, 5 inches Pick- Up Object From Floor Independent/Safe Look Behind Shoulder - Standing Shifts Weight Well Turning 360 Degrees Turns , < 4 secs Unsupported Stance, Alternating Feet on (I)- 8 Steps in 20 secs Stair Unsupported Tandem Stance Small Step- 30 seconds Unilateral Leg Stance Lifts Leg/Unable to Hold Total Score Diaz Total Score (out of 56 points) 49 Diaz Impairment Rating 1 to 19% Impaired (Score 45-55 ) PT-OP-E Functional Tests Start: 06/19/22 14:27 Freq: Status: Active Protocol: Document 09/17/22 11:35 DCW (Rec: 09/17/22 11:57 DCW [id number]) Functional Tests Dynamic Gait Index (DGI) Score 18/24 DGI Impairment Rating 20 to <40% Impaired (Score 15- 19) PT-OP-M Strength Start: 06/19/22 14:27 Freq: Status: Active Protocol: Document 09/17/22 11:35 DCW (Rec: 09/17/22 11:57 DCW [id number]) Hip Strength Hip Manual Muscle Testing Right Flexion (L2) 4- Good- Abduction 4- Good- Adduction 4 Good Left Flexion (L2) 3+ Fair+ Abduction 4- Good- Adduction 4 Good Knee Strength Knee Manual Muscle Testing Right Flexion (S2) 4+ Good+ Extension (L3) 4 Good Left Flexion (S2) 4 Good Extension (L3) 4- Good- Ankle/Foot Strength Ankle and Foot Manual Muscle Testing Right Dorsiflexion (L4) 4+ Good+ Left Dorsiflexion (L4) 4+ Good+ PT-OP-Q Treatments Start: 06/19/22 14:27 Freq: Status: Active Protocol: Document 10/23/22 13:45 DCW (Rec: 10/23/22 14:29 DCW [id number]) Gym Equipment Shuttle Recovery Unilateral Squats Resistance 50# R, 25#->37# L (1 new band) Shuttle Recovery Platform Stable Reps/Time 2x15 alternate LEs Bilateral Squats Resistance 75# (1 new band) Shuttle Recovery Platform Stable Reps/Time x20 Shuttle Balance Red Details WBOS, Staggered Therapeutic Exercises Sitting Exercises STS Resistance AROM arms across chest Equipment Used mesh chair Reps/Minutes 5x STS in 15.58 sec Comments good form Standing Exercises Hip Extension Standing Exercise Name Extension Side bilateral Resistance Red Equipment Used // bars Hip Abduction Standing Exercise Name Abduction Side bilateral Resistance Red Equipment Used // bars PT-OP-T Assessment and Plan Start: 06/19/22 14:27 Freq: Status: Active Protocol: Document 10/23/22 13:45 DCW (Rec: 10/23/22 14:29 DCW [id number]) Physical Therapy Assessment Goals Three Impairment Pt LE MMT between 3/5 and 4/5 bilaterally Chcf Goal (LTG) Pt LE MMT to score >4-/5 in all planes to demonstrate improved leg strength and stability to improve ability to perform floor transfers. 10/15/22: 5xSTS 15 sec. LTG Duration 11/15/22 - Improving 10/15/22 Two Impairment Pt presents as an increased falls risk, per DGI () Short Term Goal (STG) Pt to improve Diaz score by at least 6 points to 46/56 in order to demonstrate a decreased falls risk STG Duration Met Chcf Goal (LTG) Pt to improve DGI score by at least 3 points to in order to demonstrate decreased falls risk LTG Duration 11/15/22 progressin07/24/22 One Impairment Pt does not have an appropriate home exercise program Short Term Goal (STG) Pt to be independent and compliant with an appropriate HEP 07/17/22: heel raises, resisted ankle 3 way, band walk, stationary hip abd/ext. 09/09/22: ankle 4 way, band walks, STS from straight back chair and yoga personal: supine: ankle ROM, hip add/abd AROM, wrist/arm AROM front/ side/OH. 5x STS in 19 sec. 10/15/22: reviewed corner balance, added LTR, HS, SLR, open book, STS pre warm up getting out of bed to lessen stiffness once up standing and improve stability. STG Duration Met Progress Towards Goals Progress Towards Goals Progressing Toward Goals Assessment Summary Assessment Pt doing well at the moment, has a comprehensive HEP that she is very compliant with performing. Pt appropriate for discharge at this time, understands that if she has further decline in function, she will require a new referral in order to return to skilled therapy. Physical Therapy Plan Frequency and Duration Frequency of Treatment 2x/Week Plan of Care Start Date 09/17/22 Plan of Care End Date 11/15/22 Therapeutic Interventions Therapeutic Interventions Aquatic Therapy,Balance Training,Home Exercise Program ,Manual Therapy,Neuromuscular Re-education,Patient/Caregiver Education,Self-Care/Home Management,Soft Tissue Mobilization,Therapeutic Activities,Therapeutic Exercises Next Visit Focus/Plan Next Note Type Discharge Summary
== END 2022-10-24 14:36 | disposition home or self-care (01) ==
LOC: PHYS 13:45
PROVIDERS: Family Provider Family Medicine; PCP Family Medicine; Referring Provider Family Medicine; Visit Provider Family Medicine
DX: R26.89 Other abnormalities of gait and mobility (principal); R29.6 Repeated falls; R26.81 Unsteadiness on feet
CPT/HCPCS: 97110; 97112; 97116; 97162; 97530; 97535

== ENCOUNTER → 2023-07-03 08:31 | Outpatient (CLI) | payer MEDICARE, BC, SELFPAY ==
[2023-07-03 09:37] LABS: Add Manual Diff / Slide Review NO; Basophils Absolute Auto 100 /uL (0-100); Basophils Percent Auto 1.4 % (0-2); Eosinophils Absolute Auto 200 /uL (0-450); Eosinophils Percent Auto 2.8 % (2-4); Hematocrit 43.6 % (36-46); Hemoglobin 14.4 g/dL (12.0-16.0); Lymphocytes Absolute Auto 1000 /uL (1100-4500); Lymphocytes Percent Auto 14.3 % (25-40); Mean Corpuscular HGB Conc 33.1 % (30-36); Mean Corpuscular Hemoglobin 31.5 PG (26-34); Mean Corpuscular Volume 95.4 fL (80-100); Monocytes Absolute Auto 600 /uL (0-900); Monocytes Percent Auto 8.6 % (3-14); Neutrophils Absolute Auto 4900 /uL (1500-7000); Neutrophils Percent Auto 72.9 % (50-75); Platelet Count 232 X10^3/uL (150-400); Red Blood Cell Count 4.57 X10^6/uL (4.0-5.2); Red Cell Distribution Width 13.5 % (11.6-14.8); White Blood Cell Count 6.7 X10^3/uL (4.5-11.0)
[2023-07-03 09:51] LABS: Hemoglobin A1C% w Est Avg Glu 7.2 % (4.0-6.0)
[2023-07-03 09:55] LABS: Alanine Aminotransferase 13 IU/L (<35); Albumin 4.3 g/dL (3.5-5.0); Albumin Globulin Ratio 1.5 (1.0-2.8); Alkaline Phosphatase 47 U/L (38-126); Aspartate Aminotransferase 29 IU/L (14-36); BUN Creatinine Ratio 30.2 (6-22); Bilirubin Total 0.8 mg/dL (0.2-1.3); Blood Urea Nitrogen 19 mg/dL (7-17); Calcium 9.8 mg/dL (8.4-10.2); Carbon Dioxide 30 mmol/L (22-32); Chloride 101 mmol/L (98-107); Cholesterol 194 mg/dL (140-199); Estimated Glomerular Filt Rate > 60 mL/min (>60); Globulin 2.8 g/dL (1.7-4.1); Glucose 146 mg/dL (80-110); HDL Cholesterol 68 mg/dL (40-60); HEMOLYSIS < 15 (0-50); LDL Cholesterol Calculated 100 mg/dL (<100); Potassium 4.8 mmol/L (3.4-5.1); Sodium 136 mmol/L (137-145); Total Protein 7.1 g/dL (6.3-8.2); Triglycerides 128 mg/dL (35-150)
== END ==
PROVIDERS: Family Provider Family Medicine; PCP Family Medicine; Referring Provider Family Medicine; Visit Provider Family Medicine
DX: E11.9 Type 2 diabetes mellitus without complications (principal); E78.5 Hyperlipidemia, unspecified; R73.9 Hyperglycemia, unspecified
CPT/HCPCS: 36415; 80053; 80061; 83036; 85025

== ENCOUNTER → 2023-11-03 10:13 | Outpatient (CLI) | payer MEDICARE, BC, SELFPAY ==
[2023-11-04 10:14] LABS: Fecal Immunochemical Test Negative (Negative)
== END ==
PROVIDERS: Family Provider Family Medicine; PCP Family Medicine; Referring Provider Family Medicine; Visit Provider Family Medicine
DX: Z12.11 Encounter for screening for malignant neoplasm of colon (principal)
CPT/HCPCS: 82274

== ENCOUNTER → 2023-11-06 12:30 | Outpatient (CLI) | payer MEDICARE, BC, SELFPAY ==
--- NOTE | 2023-11-06 12:31 | DI.MG.S_ITS ---
BILATERAL DIGITAL SCREENING MAMMOGRAM 3D/2D WITH CAD: 11/06/2023 CLINICAL: Routine screening. Family history of breast cancer. Comparison is made to exams dated: 07/25/2010, 07/25/2010 mammogram, 07/20/2009 mammogram, and 07/14/2009 mammogram - [facility]. There are scattered areas of fibroglandular density in both breasts (category b / 25%-50% glandular tissue). Current study was also evaluated with a Computer Aided Detection (CAD) system. No significant masses, calcifications, or other findings are seen in either breast. There has been no significant interval change. IMPRESSION: NEGATIVE There is no mammographic evidence of malignancy. A 1 year screening mammogram is recommended. This exam was interpreted at Station ID: [id number]. NOTE: For mammograms, a report in lay terms will be sent to the patient. Approximately 15% of breast malignancies will not be visualized mammographically. In the management of a palpable breast mass, a negative mammogram must not discourage biopsy of a clinically suspicious lesion. Electronically Signed By: Delfino villalpando/jeremías:11/06/2023 13:46:48 letter sent: Normal Exam ACR BI-RADS Category 1: Negative [id number]
== END ==
LOC: MAMMO 12:31
PROVIDERS: Family Provider Family Medicine; PCP Family Medicine; Referring Provider Family Medicine; Visit Provider Family Medicine
DX: Z12.31 Encounter for screening mammogram for malignant neoplasm of breast (principal); Z80.3 Family history of malignant neoplasm of breast; R92.323 Mammographic fibroglandular density, bilateral breasts
CPT/HCPCS: 77063; 77067

== ENCOUNTER → 2023-12-15 08:44 | Outpatient (CLI) | payer MEDICARE, BC, SELFPAY ==
[2023-12-15 09:57] LABS: Add Manual Diff / Slide Review NO; Basophils Absolute Auto 100 /uL (0-100); Basophils Percent Auto 0.9 % (0-2); Eosinophils Absolute Auto 200 /uL (0-450); Eosinophils Percent Auto 2.7 % (2-4); Hematocrit 40.6 % (36-46); Hemoglobin 13.6 g/dL (12.0-16.0); Lymphocytes Absolute Auto 1300 /uL (1100-4500); Lymphocytes Percent Auto 13.5 % (25-40); Mean Corpuscular HGB Conc 33.5 % (30-36); Mean Corpuscular Hemoglobin 31.8 PG (26-34); Mean Corpuscular Volume 94.9 fL (80-100); Monocytes Absolute Auto 700 /uL (0-900); Monocytes Percent Auto 7.3 % (3-14); Neutrophils Absolute Auto 7000 /uL (1500-7000); Neutrophils Percent Auto 75.6 % (50-75); Platelet Count 205 X10^3/uL (150-400); Red Blood Cell Count 4.28 X10^6/uL (4.0-5.2); Red Cell Distribution Width 13.6 % (11.6-14.8); White Blood Cell Count 9.3 X10^3/uL (4.5-11.0)
[2023-12-15 10:06] LABS: Hemoglobin A1C% w Est Avg Glu 7.4 % (4.0-6.0)
[2023-12-15 10:18] LABS: Alanine Aminotransferase 8 IU/L (<35); Albumin 4.1 g/dL (3.5-5.0); Albumin Globulin Ratio 1.5 (1.0-2.8); Alkaline Phosphatase 49 U/L (38-126); Aspartate Aminotransferase 23 IU/L (14-36); BUN Creatinine Ratio 38.7 (6-22); Bilirubin Total 0.6 mg/dL (0.2-1.3); Blood Urea Nitrogen 29 mg/dL (7-17); Calcium 9.1 mg/dL (8.4-10.2); Carbon Dioxide 29 mmol/L (22-32); Chloride 106 mmol/L (98-107); Cholesterol 148 mg/dL (140-199); Estimated Glomerular Filt Rate > 60 mL/min (>60); Globulin 2.8 g/dL (1.7-4.1); Glucose 103 mg/dL (80-110); HDL Cholesterol 65 mg/dL (40-60); HEMOLYSIS < 15 (0-50); LDL Cholesterol Calculated 73 mg/dL (<100); Potassium 4.8 mmol/L (3.4-5.1); Sodium 137 mmol/L (137-145); Total Protein 6.9 g/dL (6.3-8.2); Triglycerides 49 mg/dL (35-150)
== END ==
PROVIDERS: Family Provider Family Medicine; PCP Family Medicine; Referring Provider Family Medicine; Visit Provider Family Medicine
DX: E11.40 Type 2 diabetes mellitus with diabetic neuropathy, unspecified (principal); K76.0 Fatty (change of) liver, not elsewhere classified; E78.5 Hyperlipidemia, unspecified
CPT/HCPCS: 36415; 80053; 80061; 83036; 85025

== ENCOUNTER → 2024-06-07 08:09 | Outpatient (CLI) | payer MEDICARE, BC, SELFPAY ==
[2024-06-07 09:14] LABS: Add Manual Diff / Slide Review NO; Basophils Absolute Auto 0 /uL (0-100); Basophils Percent Auto 0.7 % (0-2); Eosinophils Absolute Auto 200 /uL (0-450); Eosinophils Percent Auto 2.4 % (2-4); Hematocrit 42.3 % (36-46); Lymphocytes Absolute Auto 1200 /uL (1100-4500); Mean Corpuscular HGB Conc 33.1 % (30-36); Mean Corpuscular Volume 93.5 fL (80-100); Monocytes Absolute Auto 500 /uL (0-900); Monocytes Percent Auto 6.5 % (3-14); Neutrophils Absolute Auto 5100 /uL (1500-7000); Neutrophils Percent Auto 73.4 % (50-75); Platelet Count 237 X10^3/uL (150-400); Red Blood Cell Count 4.52 X10^6/uL (4.0-5.2)
[2024-06-07 09:22] LABS: Hemoglobin A1C% w Est Avg Glu 7.3 % (4.0-6.0)
[2024-06-07 09:56] LABS: Alanine Aminotransferase 8 IU/L (<35); Albumin 4.1 g/dL (3.5-5.0); Albumin Globulin Ratio 1.6 (1.0-2.8); Alkaline Phosphatase 51 U/L (38-126); Aspartate Aminotransferase 23 IU/L (14-36); BUN Creatinine Ratio 36.8 (6-22); Bilirubin Total 0.5 mg/dL (0.2-1.3); Blood Urea Nitrogen 21 mg/dL (7-17); Calcium 9.7 mg/dL (8.4-10.2); Carbon Dioxide 26 mmol/L (22-32); Chloride 103 mmol/L (98-107); Cholesterol 168 mg/dL (140-199); Estimated Glomerular Filt Rate > 60 mL/min (>60); Globulin 2.5 g/dL (1.7-4.1); Glucose 128 mg/dL (80-110); HDL Cholesterol 76 mg/dL (40-60); HEMOLYSIS 32 (0-50); LDL Cholesterol Calculated 80 mg/dL (<100); Potassium 4.8 mmol/L (3.4-5.1); Sodium 137 mmol/L (137-145); Total Protein 6.6 g/dL (6.3-8.2); Triglycerides 61 mg/dL (35-150)
== END ==
PROVIDERS: Family Provider Family Medicine; PCP Family Medicine; Referring Provider Family Medicine; Visit Provider Family Medicine
DX: E11.9 Type 2 diabetes mellitus without complications (principal); E78.5 Hyperlipidemia, unspecified; R35.1 Nocturia; H40.9 Unspecified glaucoma; E78.2 Mixed hyperlipidemia; R79.83 Abnormal findings of blood amino-acid level
CPT/HCPCS: 36415; 80053; 80061; 83036; 85025

== ENCOUNTER → 2024-08-27 08:58 | Outpatient (CLI) | payer MEDICARE, BC, SELFPAY ==
[2024-08-27 10:36] LABS: Alanine Aminotransferase 8 IU/L (<35); Albumin 4.2 g/dL (3.5-5.0); Albumin Globulin Ratio 1.7 (1.0-2.8); Alkaline Phosphatase 46 U/L (38-126); Aspartate Aminotransferase 23 IU/L (14-36); BUN Creatinine Ratio 22.1 (6-22); Bilirubin Total 0.4 mg/dL (0.2-1.3); Blood Urea Nitrogen 15 mg/dL (7-17); Calcium 9.4 mg/dL (8.4-10.2); Carbon Dioxide 30 mmol/L (22-32); Chloride 101 mmol/L (98-107); Cholesterol 168 mg/dL (140-199); Estimated Glomerular Filt Rate > 60 mL/min (>60); Globulin 2.5 g/dL (1.7-4.1); Glucose 168 mg/dL (80-110); HDL Cholesterol 61 mg/dL (40-60); HEMOLYSIS < 15 (0-50); LDL Cholesterol Calculated 88 mg/dL (<100); Potassium 4.8 mmol/L (3.4-5.1); Sodium 136 mmol/L (137-145); Total Protein 6.7 g/dL (6.3-8.2); Triglycerides 97 mg/dL (35-150)
[2024-08-27 10:38] LABS: Creatinine Urine Random 60.05 mg/dL
== END ==
PROVIDERS: Family Provider Family Medicine; PCP Family Medicine; Referring Provider Family Medicine; Visit Provider Family Medicine
DX: E11.9 Type 2 diabetes mellitus without complications (principal); R79.9 Abnormal finding of blood chemistry, unspecified; E78.5 Hyperlipidemia, unspecified
CPT/HCPCS: 36415; 80053; 80061; 82043; 82570; 83036

== ENCOUNTER → 2024-11-11 | Outpatient (CLI) | payer MEDICARE, BC, SELFPAY ==
--- NOTE | 2024-11-11 08:01 | DI.MG.S_ITS ---
MM screening mammo BI: 11/11/2024. BI-RADS: 1 CLINICAL: 84-year old female for bilateral screening mammogram. No Tyrer-Cuzick risk score calculation due to patient's age being over 85 years old. No personal or first-degree family history of breast cancer. Current reported family history of breast cancer: paternal aunt and second paternal aunt. PRIOR EXAMS 11/06/2023. MAMMOGRAPHY TECHNIQUE: 2D and 3D (tomosynthesis) digital mammographic views obtained, with additional images as needed for full coverage. Current study was also evaluated with a Computer Aided Detection (CAD) system. DENSITY B. There are scattered areas of fibroglandular density. MAMMOGRAPHY FINDINGS Bilateral: No suspicious mass, asymmetry, microcalcification, or other abnormality seen. No significant change from comparison. IMPRESSION: * No evidence of malignancy. RECOMMENDATIONS Bilateral * Annual screening mammography. OVERALL ASSESSMENT CATEGORY BI-RADS-1: Negative. The [employer] recommends annual screening mammography beginning at age 40 for women with average risk of breast cancer. ELECTRONICALLY SIGNED: Tsering Hernadez M.D. on 11/11/2024 at 11:57:49 AM PT Interpreting Station ID: [id number]
== END ==
PROVIDERS: Family Provider Family Medicine; PCP Family Medicine; Referring Provider Family Medicine; Visit Provider Family Medicine
DX: Z12.31 Encounter for screening mammogram for malignant neoplasm of breast (principal); Z80.3 Family history of malignant neoplasm of breast
CPT/HCPCS: 77063; 77067

== ENCOUNTER → 2024-11-30 08:45 | Outpatient (CLI) | payer MEDICARE, BC, SELFPAY ==
--- NOTE | 2024-11-30 09:03 | DIAB.MNT ---
Initial Diabetes Medical Nutrition Therapy Assessment Name: Sirena Salguero (Samantha) Date: 11/30/24 Time: 9-940a Dx: Type II Diabetes Provider: Giovanny Singh presents for initial Dm visit. Reports moving to a [facility] community her diet has drastically changed. use to eat dessert once per week on Sundays, and now having dessert BID. Has asked for half servings, but this has not been successful. Seems to have limited success with staff helping with a more DM friendly diet. Reports in general, higher CHOand more refined CHO options. This has resulted in higher HgA1c results and higher home BG results. States her daughter keeps chicken and tuna in pantry for her. Today she brought some menus for review. Most contain pretty high CHO, limited veggies reported, and often dessert. Diet Recall: 6a: grapes, yogurt, muffin cheese, 1/4 orange OR raisin bran cereal 12p: beef, potatoes, veggies, strawberry cobbler, 4oz apple juice 4p: 1/2 cookie 515p: chx, broccoli, jello with whipped cream water 60oz 8oz milk Has noticed increased urination with higher BG. would like to know what elevated BG can do to her health. Anthropometrics: Ht: 66 Wt: 143.5# Physical Activity: Exercise classes 3-4 x per week Self-Monitoring Blood Glucose: Checking 1x per day: FBG or HS. All readings above goal, especially HS readings often 2-3 hours pc. Pre moving, her FBG were 74-140mg/dl and HS 84-180mg/dl. Date Pre Post Pre Post Pre Post HS 11/19 134 252 11/23 144 296 11/24 325 11/25 181 11/27 253 320 11/28 200 Diabetes Medications: 100mg Invokana 12u Glargine 100mg Januvia 2mg Glimepiride TID Pertinent Labs: HGa1c: 7.3% 06/2024 8% 08/2024 Past Medical History: (Last Updated 02/12/24 @ 11:56 by Kaleb Baltazar DO) Acute pain of right shoulder Alopecia (Unknown) Anemia (Unknown) as a child Balance problem Benign paroxysmal positional vertigo of left ear Body posture problem Cataracts, bilateral (2016) Cervical somatic dysfunction Cranial somatic dysfunction Diabetes (Unknown) Diabetic neuropathy Dry eyes, bilateral Dry skin GERD (gastroesophageal reflux disease) (Unknown) Glaucoma (Unknown) Glucosuria Hyperlipemia (Unknown) Kidney stones (Unknown) Lower urinary tract symptoms (LUTS) Nocturia more than twice per night Onychomycosis Osteoarthritis (Unknown) Osteopenia after menopause Postmenopausal atrophic vaginitis PUD (peptic ulcer disease) (Unknown) Rhinitis, nonallergic, chronic Right foot injury Urinary retention with incomplete bladder emptying Uveitis Nutrition Rx: Plate Method Nutrition Diagnosis: - Excessive CHO intake r/t moving to [facility] home and no longer cooking for self aeb menus and diet recall- new Intervention: This participant was very receptive. Provided appropriate educational handouts. Discussed the following topics: Completed intake assessment. Discussed barriers to care. Plate Method, impact of macronutrients on blood sugar, pairing macronutrients Recommended servings for carbohydrates at meals and snacks Brainstormed appropriate meal ideas based on food preferences and menus Physical activity How hyperglycemia can impact [place] Created SMART goals for patient self-care and success. Goals: Avoid juice Limit dessert to once per week Limit CHO at meals to 1c Have Protein with meals Follow-up: GIULIA GILLIS follow-up in 2-3 weeks Nathalie Pitt RDN, ELIS Certified Diabetes Care and Ladle Liner Helper P: [phone] Thank you for this referral
== END ==
LOC: DIET 08:47
PROVIDERS: Family Provider Family Medicine; PCP Family Medicine
DX: E11.65 Type 2 diabetes mellitus with hyperglycemia (principal); Z71.3 Dietary counseling and surveillance; Z79.84 Long term (current) use of oral hypoglycemic drugs; Z79.4 Long term (current) use of insulin
CPT/HCPCS: 97802

== ENCOUNTER → 2024-12-21 10:37 | Outpatient (CLI) | payer MEDICARE, BC, SELFPAY ==
--- NOTE | 2024-12-21 11:00 | DIAB.MNTFU ---
Follow-up Diabetes Medical Nutrition Therapy Assessment Name: Sirena Salguero (Samantha) Date: 12/21/24 Time: Dx: Type II Diabetes Samantha presents for Dm visit. Trying to limit CHO at meals. Only choosing one carb choice at meals vs 2-3 that are offered. Endorses eating about 1/2c of CHO at a meal. Avoiding juice entirely since last visit. Limiting dessert to once per day at dinner vs previous BID. Trying to aim toward 1x per week dessert, as she was doing when prior to living in community living space. Reports sometimes feeling it is difficult since everyone around her is getting served dessert. Will often leave the table early if not having dessert. having protein at meals. She is very worried about her next hgA1c being >8% Still having frequent urination despite improved BG. Interested in CGM sample next visit. Will need a patrol supervisor. Last Diet Recall: 6a: grapes, yogurt, muffin cheese, 1/4 orange OR raisin bran cereal 12p: beef, potatoes, veggies, strawberry cobbler, 4oz apple juice 4p: 1/2 cookie 515p: chx, broccoli, jello with whipped cream water 60oz 8oz milk Anthropometrics: Ht: 66 Wt: 143.5# 11/2024 Physical Activity: Exercise classes 3-4 x per week Self-Monitoring Blood Glucose: Checking 2x per day: FBG and HS. FBG have improved since last visit with all <145mg/dl. HS readings often 2 hours pc. most are elevated, though lower than last visit. 308mg/dl after dessert and root beer float. Pre moving, her FBG were 74-140mg/dl and HS 84-180mg/dl. Today: Date Pre Post Pre Post Pre Post HS 12/11 131 308 12/13 141 164 12/14 103 195 12/16 142 183 12/18 131 298 12/20 133 189 12/21 114 Last visit : Date Pre Post Pre Post Pre Post HS 11/19 134 252 11/23 144 296 11/24 325 11/25 181 11/27 253 320 11/28 200 Diabetes Medications: 100mg Invokana 12u Glargine 100mg Januvia 2mg Glimepiride TID Pertinent Labs: HGa1c: 7.3% 06/2024 8% 08/2024 Past Medical History: (Last Updated 02/12/24 @ 11:56 by Kaleb Baltazar, DO) Acute pain of right shoulder Alopecia (Unknown) Anemia (Unknown) as a child Balance problem Benign paroxysmal positional vertigo of left ear Body posture problem Cataracts, bilateral (2016) Cervical somatic dysfunction Cranial somatic dysfunction Diabetes (Unknown) Diabetic neuropathy Dry eyes, bilateral Dry skin GERD (gastroesophageal reflux disease) (Unknown) Glaucoma (Unknown) Glucosuria Hyperlipemia (Unknown) Kidney stones (Unknown) Lower urinary tract symptoms (LUTS) Nocturia more than twice per night Onychomycosis Osteoarthritis (Unknown) Osteopenia after menopause Postmenopausal atrophic vaginitis PUD (peptic ulcer disease) (Unknown) Rhinitis, nonallergic, chronic Right foot injury Urinary retention with incomplete bladder emptying Uveitis Nutrition Rx: Plate Method Nutrition Diagnosis: - Excessive CHO intake r/t moving to alf home and no longer cooking for self aeb menus and diet recall- in progress Intervention: This participant was very receptive. Provided appropriate educational handouts. Discussed the following topics: Strategies for reducing CHO Ordering fruit instead of dessert Reducing dessert frequency CGM brief review Reducing BG to impact hgA1c Created SMART goals for patient self-care and success. Goals: Avoid juice- met Limit dessert to once per week - in progress Limit CHO at meals to 1c- met Have Protein with meals - met Try to limit dessert to q other day- new Try ordering fruit instead- new Follow-up: GIULIA GILLIS follow-up in 3-4 weeks. Will trial CGM sample with patrol supervisor next visit. Nathalie Pitt RDN, ELIS Certified Diabetes Care and School Lunch Monitor P: [phone] Thank you for this referral
== END ==
PROVIDERS: Family Provider Family Medicine; PCP Family Medicine
DX: E11.65 Type 2 diabetes mellitus with hyperglycemia (principal); Z71.3 Dietary counseling and surveillance; Z79.84 Long term (current) use of oral hypoglycemic drugs; Z79.4 Long term (current) use of insulin
CPT/HCPCS: 97803

== ENCOUNTER → 2025-01-25 13:01 | Outpatient (CLI) | payer MEDICARE, BC, SELFPAY ==
--- NOTE | 2025-02-11 11:14 | DIAB.FU ---
Follow-up Diabetes Education Assessment Name: Sirena Salguero (Samantha) Date: 01/25/25 Time: 1-130p Dx: Type II Diabetes Samantha presents for Dm visit. Interested in trying CGM today with parks recreation director. Reports challenge with limited dessert. Some days she is skipping. Sundays dessert is still BID. Otherwise, 1-1.5 portions most days. States the facility does not always have fruit to substitute. Anthropometrics: Ht: 66 Wt: 143.5# 11/2024 Physical Activity: Exercise classes 3-4 x per week Self-Monitoring Blood Glucose: Checking 2x per day: FBG and HS. FBG running 112-160mg/dl, slightly higher than last visit at times. HS 100-300s, mostly in 200s. None for review today. Pre moving, her FBG were 74-140mg/dl and HS 84-180mg/dl. Last visit : Date Pre Post Pre Post Pre Post HS 12/11 131 308 12/13 141 164 12/14 103 195 12/16 142 183 12/18 131 298 12/20 133 189 12/21 114 Diabetes Medications: 100mg Invokana 12u Glargine 100mg Januvia 2mg Glimepiride TID Pertinent Labs: HGa1c: 7.3% 06/2024 8% 08/2024 Past Medical History: (Last Updated 02/12/24 @ 11:56 by Kaleb Baltazar DO) Acute pain of right shoulder Alopecia (Unknown) Anemia (Unknown) as a childBalance problem Benign paroxysmal positional vertigo of left ear Body posture problem Cataracts, bilateral (2015) Cervical somatic dysfunction Cranial somatic dysfunction Diabetes (Unknown) Diabetic neuropathy Dry eyes, bilateral Dry skin GERD (gastroesophageal reflux disease) (Unknown) Glaucoma (Unknown) Glucosuria Hyperlipemia (Unknown) Kidney stones (Unknown) Lower urinary tract symptoms (LUTS) Nocturia more than twice per night Onychomycosis Osteoarthritis (Unknown) Osteopenia after menopause Postmenopausal atrophic vaginitis PUD (peptic ulcer disease) (Unknown) Rhinitis, nonallergic, chronic Right foot injury Urinary retention with incomplete bladder emptying Uveitis Intervention: This participant was very receptive. Provided appropriate educational handouts. Discussed the following topics: Goals for CHO intake CGM education, precautions, placement Created SMART goals for patient self-care and success. Goals: Try to limit dessert to q other day- in progress Try ordering fruit instead- d/c wear CGM x 10.5 days- new Bring menus with you- new Follow-up: GIULIA GILLIS follow-up in 2-3 weeks Nathalie Pitt RDN, ELIS Certified Diabetes Care and Motor Operator P: [phone] Thank you for this referral
== END ==
LOC: DIET 13:02
PROVIDERS: Family Provider Family Medicine; PCP Family Medicine
DX: E11.9 Type 2 diabetes mellitus without complications (principal); Z71.3 Dietary counseling and surveillance; Z79.84 Long term (current) use of oral hypoglycemic drugs; Z79.4 Long term (current) use of insulin
CPT/HCPCS: G0108

== ENCOUNTER → 2025-02-09 09:37 | Outpatient (CLI) | payer MEDICARE, BC, SELFPAY ==
--- NOTE | 2025-02-11 11:21 | DIAB.MNTFU ---
Follow-up Diabetes Medical Nutrition Therapy Assessment Name: Sirena Salguero (Samantha) Date: 02/09/25 Time: -9609k Dx: Type II Diabetes Samantha presents for Dm visit. Wore CGM and noticed elevations after meals. Increased BG and hgA1c seems directly connected to her diet changes since moving to assisted living facility. States she is considering cooking her own meals, however she enjoys the social part of eating [place]. States she feels it is so difficult to reduce CHO and dessert when everyone around her is enjoying it, however prefers to try to make changes vs adding more meds. If hyperglycemia continues above goal, may benefit from 70/30 BID regimen. Seems her BG are elevated after meals and may benefit from some prandial coverage. Prior to living at the facility, use to eat mostly low or moderate CHO. Breakfast was eggs and ww toast or oat meal with sugar Lunch was protein and veggies Dinner was half a sandwich. Now having CHO at each meal, including dessert 1-2x per day. Anthropometrics: Ht: 66 Wt: 143.5# 11/2024 Physical Activity: Exercise classes 3-4 x per week Self-Monitoring Blood Glucose: Wore CGM and having excessive time above goal. Elevations after most meals. Wants to try sample CGM one more time before considering rx. TIR: 26% very high 35% high 39% in range avmg/dl GMI: 8.1% std dev: 70mg/dl variance: 34.8% Diabetes Medications: 100mg Invokana 12u Glargine 100mg Januvia 2mg Glimepiride TID Pertinent Labs: HGa1c: 7.3% 06/2024 8% 08/2024 Past Medical History: (Last Updated 02/12/24 @ 11:56 by Kaleb Baltazar DO) Acute pain of right shoulder Alopecia (Unknown) Anemia (Unknown) as a childBalance problem Benign paroxysmal positional vertigo of left ear Body posture problem Cataracts, bilateral (2016) Cervical somatic dysfunction Cranial somatic dysfunction Diabetes (Unknown) Diabetic neuropathy Dry eyes, bilateral Dry skin GERD (gastroesophageal reflux disease) (Unknown) Glaucoma (Unknown) Glucosuria Hyperlipemia (Unknown) Kidney stones (Unknown) Lower urinary tract symptoms (LUTS) Nocturia more than twice per night Onychomycosis Osteoarthritis (Unknown) Osteopenia after menopause Postmenopausal atrophic vaginitis PUD (peptic ulcer disease) (Unknown) Rhinitis, nonallergic, chronic Right foot injury Urinary retention with incomplete bladder emptying Uveitis Nutrition Rx: Plate Method Nutrition Diagnosis: - Excessive CHO intake r/t moving to [facility] home and no longer cooking for self aeb menus and diet recall- in progress Intervention: This participant was very receptive. Provided appropriate educational handouts. Discussed the following topics: CGM review and glucose goals hgA1c goals and loosened recs with age Her preference to choose diet changes vs adding 70/30 BID at this time Potential for easy home made meals Importance of social time Realistic options in how to reduce CHO intake CGM pro/cons and potential for rx Created SMART goals for patient self-care and success. Goals: wear CGM x 10.5 days- met Bring menus with you- met Try reducing CHO at meals- new Try to cook at home- new Follow-up: GIULIA GILLIS follow-up in 2-3 weeks Nathalie Pitt RDN, ELIS Certified Diabetes Care and Tax Services Professional P: [phone] Thank you for this referral
== END ==
PROVIDERS: Family Provider Family Medicine; PCP Family Medicine; Referring Provider Family Medicine
DX: E11.9 Type 2 diabetes mellitus without complications (principal); Z71.3 Dietary counseling and surveillance; Z79.84 Long term (current) use of oral hypoglycemic drugs; Z79.4 Long term (current) use of insulin
CPT/HCPCS: 97803

== ENCOUNTER → 2025-02-15 07:54 | Outpatient (CLI) | payer MEDICARE, BC, SELFPAY ==
[2025-02-15 09:02] LABS: Add Manual Diff / Slide Review NO; Hematocrit 41.1 % (36-46); Hemoglobin 13.8 g/dL (12.0-16.0); Lymphocytes Absolute Auto 1600 /uL (1100-4500); Mean Corpuscular HGB Conc 33.6 % (30-36); Mean Corpuscular Hemoglobin 32.1 PG (26-34); Mean Corpuscular Volume 95.7 fL (80-100); Platelet Count 230 X10^3/uL (150-400)
[2025-02-15 09:17] LABS: Hemoglobin A1C% w Est Avg Glu 8.0 % (4.0-6.0)
[2025-02-15 09:32] LABS: Alanine Aminotransferase 8 IU/L (<35); Albumin 4.2 g/dL (3.5-5.0); Albumin Globulin Ratio 1.6 (1.0-2.8); Alkaline Phosphatase 48 U/L (38-126); Blood Urea Nitrogen 20 mg/dL (7-17); Calcium 9.3 mg/dL (8.4-10.2); Carbon Dioxide 29 mmol/L (22-32); Chloride 103 mmol/L (98-107); Estimated Glomerular Filt Rate > 60 mL/min (>60); Globulin 2.6 g/dL (1.7-4.1); Glucose 106 mg/dL (70-99); HEMOLYSIS < 15 (0-50); Potassium 4.6 mmol/L (3.4-5.1); Sodium 137 mmol/L (137-145); Total Protein 6.8 g/dL (6.3-8.2)
== END ==
PROVIDERS: Family Provider Family Medicine; PCP Family Medicine; Referring Provider Family Medicine; Visit Provider Internal Medicine Rheumatology
DX: E11.9 Type 2 diabetes mellitus without complications (principal); L40.50 Arthropathic psoriasis, unspecified
CPT/HCPCS: 36415; 80053; 83036; 85025; 85651; 86140

== ENCOUNTER → 2025-02-22 14:24 | Outpatient (CLI) | payer MEDICARE, BC, SELFPAY ==
--- NOTE | 2025-03-11 17:33 | DIAB.FU ---
Follow-up Diabetes Education Assessment Name: Sirena Salguero (Samantha) Date: 02/22/25 Time: 3-330p Dx: Type II Diabetes Samantha presents for Dm visit. Reports more cooking at home, protein and veggies, 3x per week. BG still elevated per CGM. still difficulty for her to make diet changes given living in a facility that provides desserts BID and higher CHO meals per report. Eating with others is most of her social time, so limiting this is not ideal. Interested in getting personal CGM to use intermittently per report. Seems her options are to either make more effort to change diet to previous diet before moving to facility, ie mostly pro and veggies, or considerations for mixed insulin or continue as is and change expectations for BG management given age, living situation, and diet limitations. Pt states she would prefer not to adhere to different BG or hgA1c goals at this time. Anthropometrics: Ht: 66 Wt: 143.5# 11/2024 Physical Activity: Exercise classes 3-4 x per week Self-Monitoring Blood Glucose: Wore CGM and having excessive time above goal. Some improved time in range but still not in goal at this time. TIR: 24% very high 32% high 44% in range 0% low <1% very low--- likely false low avmg/dl GMI: 8% std dev: 69mg/dl variance: 34.8% TIR: 26% very high 35% high 39% in range avmg/dl GMI: 8.1% std dev: 70mg/dl variance: 34.8% Diabetes Medications: 100mg Invokana 12u Glargine 100mg Januvia 2mg Glimepiride TID Pertinent Labs: HGa1c: 7.3% 06/2024 8% 08/2024 Past Medical History: (Last Updated 02/12/24 @ 11:56 by Kaleb Baltazar DO)Acute pain of right shoulder Alopecia (Unknown) Anemia (Unknown) as a childBalance problem Benign paroxysmal positional vertigo of left ear Body posture problem Cataracts, bilateral (2016) Cervical somatic dysfunction Cranial somatic dysfunction Diabetes (Unknown) Diabetic neuropathy Dry eyes, bilateral Dry skin GERD (gastroesophageal reflux disease) (Unknown) Glaucoma (Unknown) Glucosuria Hyperlipemia (Unknown) Kidney stones (Unknown) Lower urinary tract symptoms (LUTS) Nocturia more than twice per night Onychomycosis Osteoarthritis (Unknown) Osteopenia after menopause Postmenopausal atrophic vaginitis PUD (peptic ulcer disease) (Unknown) Rhinitis, nonallergic, chronic Right foot injury Urinary retention with incomplete bladder emptying Uveitis Nutrition Rx: Plate Method Nutrition Diagnosis: - Excessive CHO intake r/t moving to halfway home and no longer cooking for self aeb menus and diet recall- in progress Intervention: This participant was very receptive. Provided appropriate educational handouts. Discussed the following topics: CGM review and glucose goals hgA1c goals and loosened recs with age potential Realistic options in how to reduce CHO intake CGM process for personal CGM acquisition Created SMART goals for patient self-care and success. Goals: Try reducing CHO at meals- in progress Try to cook at home- met Call [facility] prn for CGM- new Follow-up: GIULIA GILLIS follow-up in 3-4 weeks Nathalei Pitt RDN, ELIS Certified Diabetes Care and International Accounting Manager P: [phone] Thank you for this referral
== END ==
LOC: DIET 14:25
PROVIDERS: Family Provider Family Medicine; PCP Family Medicine; Referring Provider Family Medicine
DX: E11.9 Type 2 diabetes mellitus without complications (principal); Z79.84 Long term (current) use of oral hypoglycemic drugs; Z79.4 Long term (current) use of insulin; Z71.3 Dietary counseling and surveillance
CPT/HCPCS: G0108

== ENCOUNTER → 2025-03-16 10:31 | Outpatient (CLI) | payer MEDICARE, BC, SELFPAY ==
--- NOTE | 2025-03-16 11:08 | DIAB.FU ---
Follow-up Diabetes Education Assessment Name: Sirena Salguero (Samantha) Date: 03/16/25 Time: 11a Dx: Type II Diabetes Samnatha presents for Dm visit. States she thinks [facility] is set up for CGM delivery. RD reached out to [facility] during our appt and confirmed Dexcom G7 shipped on 03/11. She would like to schedule next visit with daughter to help learn how to place personal CGM. Endorses continued efforts in diet changes Cooks protein and veggies at home States she is disappointed about her recent hgA1c cont at 8%. States if she lives into 100+ years she wants to be able to physically function, and keeping BG in goal may contribute to this. Anthropometrics: Ht: 66 Wt: 145# 03/2025 143.5# 11/2024 Physical Activity: Exercise classes 3-4 x per week Self-Monitoring Blood Glucose: Wore CGM previously. Waiting on personal CGM. Checking FBG and HS at this time with FBG in goal per report in the low 100s, but endorses HS readings of 200-300s. Ran out of strips recently and states she is unsure if she needs to replace since she is transitioning to CGM. Encouraged her to keep SMBG supplies as back up. She agreed. Last TIR: 24% very high 32% high 44% in range 0% low <1% very low--- likely false low avmg/dl GMI: 8% std dev: 69mg/dl variance: 34.8% Diabetes Medications: 100mg Invokana 12u Glargine 100mg Januvia 2mg Glimepiride TID Pertinent Labs: HGa1c: 7.3% 06/2024 8% 08/2024 8% 02/2025 Past Medical History: (Last Updated 02/12/24 @ 11:56 by Kaleb Baltazar DO)Acute pain of right shoulder Alopecia (Unknown) Anemia (Unknown) as a childBalance problem Benign paroxysmal positional vertigo of left ear Body posture problem Cataracts, bilateral (2016) Cervical somatic dysfunction Cranial somatic dysfunction Diabetes (Unknown) Diabetic neuropathy Dry eyes, bilateral Dry skin GERD (gastroesophageal reflux disease) (Unknown) Glaucoma (Unknown) Glucosuria Hyperlipemia (Unknown) Kidney stones (Unknown) Lower urinary tract symptoms (LUTS) Nocturia more than twice per night Onychomycosis Osteoarthritis (Unknown) Osteopenia after menopause Postmenopausal atrophic vaginitis PUD (peptic ulcer disease) (Unknown) Rhinitis, nonallergic, chronic Right foot injury Urinary retention with incomplete bladder emptying Uveitis Intervention: This participant was very receptive. Provided appropriate educational handouts. Discussed the following topics: CGM shipping confirmation and process of placement/education with daughter hgA1c goals and loosened recs with age potential Potential goal of keeping BG after meals <200 Realistic options in how to reduce CHO intake Created SMART goals for patient self-care and success. Goals: Call [facility] prn for CGM- met Eat half meal at dinner and take other half home- new Bring ruby rails developer and sensor next visit for personal CGM placement- new supervisor marble SMBG strips- new Follow-up: GIULIA GILLIS follow-up next Friday to place personal CGM with daughterPallavi. Nathalie Pitt RDN, CDCES Certified Diabetes Care and Dental Treatment Coordinator P: [phone] Thank you for this referral
== END ==
LOC: DIET 10:32
PROVIDERS: PCP Family Medicine; Referring Provider Family Medicine
DX: E11.9 Type 2 diabetes mellitus without complications (principal); Z71.3 Dietary counseling and surveillance; Z79.4 Long term (current) use of insulin; Z79.84 Long term (current) use of oral hypoglycemic drugs; Z79.85 Long-term (current) use of injectable non-insulin antidiabetic drugs
CPT/HCPCS: G0108

== ENCOUNTER → 2025-04-19 12:33 | Outpatient (CLI) | payer MEDICARE, BC, SELFPAY ==
--- NOTE | 2025-04-19 13:19 | DIAB.MNTFU ---
Follow-up Diabetes Medical Nutrition Therapy Assessment Name: Sirena Salguero (Samantha) Date: 04/19/25 Time: 105-135p Dx: Type II Diabetes Samantha presents for Dm visit. Picked up Ozempic and needs education on how to inject. Reports getting new meter with rx but no strips. RD called pharmacy to troubleshoot strip rx. States she would like to continue to make changes to her diet. This morning she ate three plums, 1/4 pear, 1/4 pach and cheese and BG was 267mg/dl. This afternoon she had salad, chicken, and half pumpkin pie slice and BG in the low 200s. Endorses BM sometimes q 1-[address] with some concerns for her risk of constipation and GLP1. Will continue to evaluate. Anthropometrics: Ht: 66 Wt: 145# 03/2025 143.5# 11/2024 Physical Activity: Exercise classes 3-4 x per week Self-Monitoring Blood Glucose: Similar TIR as previous CGM with excessive time elevated, slight improvement. Has a new meter but pharmacy is saying her insurance will not cover strips and advised to call insurance. TIR: 19% very high 31% high 50% in range 0% low 0% very low avmg/dl GMI: 7.8% std dev: 65mg/dl variance: 34.9% Last TIR: 24% very high 324% very high 28% high 47% in range 0% low 0% very low avmg/dl GMI: % std dev: 75mg/dl variance: 39.4% Diabetes Medications: 100mg Invokana 12u Glargine 100mg Januvia 2mg Glimepiride TID 0.25 Ozempic--- not started Pertinent Labs: HGa1c: 7.3% 06/2024 8% 08/2024 8% 02/2025 Past Medical History: (Last Updated 02/12/24 @ 11:56 by Kaleb Baltazar DO)Acute pain of right shoulder Alopecia (Unknown) Anemia (Unknown) as a childBalance problem Benign paroxysmal positional vertigo of left ear Body posture problem Cataracts, bilateral (2016) Cervical somatic dysfunction Cranial somatic dysfunction Diabetes (Unknown) Diabetic neuropathy Dry eyes, bilateral Dry skin GERD (gastroesophageal reflux disease) (Unknown) Glaucoma (Unknown) Glucosuria Hyperlipemia (Unknown) Kidney stones (Unknown) Lower urinary tract symptoms (LUTS) Nocturia more than twice per night Onychomycosis Osteoarthritis (Unknown) Osteopenia after menopause Postmenopausal atrophic vaginitis PUD (peptic ulcer disease) (Unknown) Rhinitis, nonallergic, chronic Right foot injury Urinary retention with incomplete bladder emptying Uveiti Nutrition Rx: Plate Method Nutrition Diagnosis: - Excessive CHO intake r/t moving to long term home and no longer cooking for self aeb menus and diet recall- in progress Intervention: This participant was very receptive. Provided appropriate educational handouts. Discussed the following topics: Reviewed recs for fruit and macronutrient pairing Discussed progression of DM and impact CHO are having on her BG, even in smaller portions Reviewed Ozempic injection technique, precautions, benefits, and dosing schedule Discussed potential for constipation and encouraged fiber and fluids Troubleshooting meter and supplies rx- RD called pharmacy to determine hold up with strip coverage Created SMART goals for patient self-care and success. Goals: Wear personal CGM- met Start Ozempic weekly- new Call insurance regarding strips- new Limit fruit to 1-2 servings per sitting- new Follow-up: GIULIA GILLIS follow-up 3-4 weeks. PCP visit on 05/13. Will pair RD visit on this day. Nathalie Pitt RDN, TANES Certified Diabetes Care and Sales Route Driver Helper P: [phone] Thank you for this referral
== END ==
LOC: DIET 12:34
PROVIDERS: PCP Family Medicine; Referring Provider Family Medicine
DX: E11.9 Type 2 diabetes mellitus without complications (principal); Z71.3 Dietary counseling and surveillance; Z79.84 Long term (current) use of oral hypoglycemic drugs; Z79.4 Long term (current) use of insulin
CPT/HCPCS: G0270

== ENCOUNTER 2025-04-25 18:58 | Emergency (ER) | payer MEDICARE, BC, SELFPAY ==
[2025-04-25 19:12] VITALS: BP 135/64; PULSE 71; RESP 16; TEMP 36.4; O2SAT 96; BMI 22.2
[2025-04-25 19:43] LABS: Culture Indicated Urine Specimen Cultured
== END 2025-04-25 22:02 | disposition left against medical advice (07) ==
PROVIDERS: Emergency Provider Emergency Medicine; PCP Family Medicine
DX: R35.0 Frequency of micturition (principal)
CPT/HCPCS: 81003; 81015; 87077; 87086; 87186; 99281

== ENCOUNTER → 2025-05-13 14:55 | Outpatient (CLI) | payer MEDICARE, BC, SELFPAY ==
--- NOTE | 2025-05-13 15:01 | DIAB.MNTFU ---
Follow-up Diabetes Medical Nutrition Therapy Assessment Name: Sirena Salguero (Samantha) Date: 05/13/25 Time: 2430-4375u Dx: Type II Diabetes Samantha presents for Dm visit. Started Ozempic on 0.25mg. Saw PCP today and plans to increase dose to 0.5mg next week. Reports some lows between 1-3p, supported by CGM reports. May want to consider reduced basal insulin or d/c of glimepiride. Denies any symptoms r/t lows. Has not checked lows with meter. Overall, glucose reports indicate FBG mostly in goal and postprandial significantly elevated. Hoping increase in Ozempic will help reduced elevations. Plans for hgA1c and PCp visit in September. Discontinued Januvia per PCP note. No diet changes per report. Tries to give away or save desserts. Eating desserts to treat morning lows. Breakfast reported is high in CHO with fruit and high CHO cereal. PCP rec'd HS snack. Anthropometrics: Ht: 66 Wt: 145# 05/2025 145# 03/2025 143.5# 11/2024 Physical Activity: Exercise classes 3-4 x per week Self-Monitoring Blood Glucose: Similar TIR as previous CGM with excessive time elevated, slight improvement. Some lows at 1-3am. TIR: 14% very high 31% high 55% in range 0% low <1% very low avmg/dl GMI: 7.5% std dev: 65mg/dl variance: 37% Last TIR: 19% very high 31% high 50% in range 0% low 0% very low avmg/dl GMI: 7.8% std dev: 65mg/dl variance: 34.9% Diabetes Medications: 100mg Invokana 12u Glargine 100mg Januvia--- d/c 2mg Glimepiride TID 0.25 Ozempic Pertinent Labs: HGa1c: 7.3% 06/2024 8% 08/2024 8% 02/2025 Past Medical History: (Last Updated 02/12/24 @ 11:56 by Kaleb Baltazar DO)Acute pain of right shoulder Alopecia (Unknown) Anemia (Unknown) as a childBalance problem Benign paroxysmal positional vertigo of left ear Body posture problem Cataracts, bilateral (2016) Cervical somatic dysfunction Cranial somatic dysfunction Diabetes (Unknown) Diabetic neuropathy Dry eyes, bilateral Dry skin GERD (gastroesophageal reflux disease) (Unknown) Glaucoma (Unknown) Glucosuria Hyperlipemia (Unknown) Kidney stones (Unknown) Lower urinary tract symptoms (LUTS) Nocturia more than twice per night Onychomycosis Osteoarthritis (Unknown) Osteopenia after menopause Postmenopausal atrophic vaginitis PUD (peptic ulcer disease) (Unknown) Rhinitis, nonallergic, chronic Right foot injury Urinary retention with incomplete bladder emptying Uveiti Nutrition Rx: Plate Method Nutrition Diagnosis: - Excessive CHO intake r/t nutrition knowledge deficit aeb pt report and CGM data- new Intervention: This participant was very receptive. Provided appropriate educational handouts. Discussed the following topics: Encouraged reduced CHO at breakfast Reviewed Rule of 15 tx for lows Discussed HS snack options with protein Reviewed potential reasons for lows in the night Created SMART goals for patient self-care and success. Goals: Start Ozempic weekly- met Call insurance regarding strips- d/c (managed with RN per report) Limit fruit to 1-2 servings per sitting- met Switch to lower CHO cereal- new aircraft cleaning supervisor glucose tabs- new Increase ozempic as rx'd- new Add HS snack- new Check lows with meter- new Follow-up: GIULIA GILLIS follow-up in 2-3 weeks Nathalie Pitt RDN, ELIS Certified Diabetes Care and Polishing Wheel Repairer P: [phone] Thank you for this referral
== END ==
PROVIDERS: PCP Family Medicine; Referring Provider Family Medicine
DX: E11.9 Type 2 diabetes mellitus without complications (principal); Z71.3 Dietary counseling and surveillance; Z79.85 Long-term (current) use of injectable non-insulin antidiabetic drugs; Z79.84 Long term (current) use of oral hypoglycemic drugs; Z79.4 Long term (current) use of insulin
CPT/HCPCS: G0270

== ENCOUNTER → 2025-06-01 12:37 | Outpatient (CLI) | payer MEDICARE, BC, SELFPAY ==
--- NOTE | 2025-06-01 13:20 | DIAB.MNTFU ---
Follow-up Diabetes Medical Nutrition Therapy Assessment Name: Sirena Salguero (Samantha) Date: 06/01/25 Time: 1-130p Dx: Type II Diabetes Samantha presents for Dm visit. Still taking Ozempic on 0.25mg. Has not yet increased to 0.5mg but plans to do so today. Per PCP, plan is to titrate up Ozempic and reduce glimepiride. Has had lows over the last two nights in the 40-70mg/dl. Has not been able to confirm with a finger stick due to not having strips for her meter. Insurance was rejecting. RD called pharmacy for more info. Seems insurance will not cover since she is using CGM, though pharmacy can offer reduced sahni pantoja. For lows, she is treating with dessert, not glucose tabs. Plans to pick some up. Switched to lower sugar cereal for breakfast. Having protein HS snack Anthropometrics: Ht: 66 Wt: 145# 05/2025 145# 03/2025 143.5# 11/2024 Physical Activity: Exercise classes 3-4 x per week Self-Monitoring Blood Glucose: Continued excessive hyperglycemia, some increase since last visit. Some lows at 1-3am. TIR: 20% very high 32% high 48% in range 0% low <1% very low avmg/dl GMI: 7.8% std dev: 62mg/dl variance: 33.2% Last TIR: 14% very high 31% high 55% in range 0% low <1% very low avmg/dl GMI: 7.5% std dev: 65mg/dl variance: 37% Diabetes Medications: 100mg Invokana 12u Glargine 2mg Glimepiride TID 0.25 Ozempic Pertinent Labs: HGa1c: 7.3% 06/2024 8% 08/2024 8% 02/2025 Past Medical History: (Last Updated 02/12/24 @ 11:56 by Kaleb Baltazar DO)Acute pain of right shoulder Alopecia (Unknown) Anemia (Unknown) as a childBalance problem Benign paroxysmal positional vertigo of left ear Body posture problem Cataracts, bilateral (2016) Cervical somatic dysfunction Cranial somatic dysfunction Diabetes (Unknown) Diabetic neuropathy Dry eyes, bilateral Dry skin GERD (gastroesophageal reflux disease) (Unknown) Glaucoma (Unknown) Glucosuria Hyperlipemia (Unknown) Kidney stones (Unknown) Lower urinary tract symptoms (LUTS) Nocturia more than twice per night Onychomycosis Osteoarthritis (Unknown) Osteopenia after menopause Postmenopausal atrophic vaginitis PUD (peptic ulcer disease) (Unknown) Rhinitis, nonallergic, chronic Right foot injury Urinary retention with incomplete bladder emptying Uveiti Nutrition Rx: Plate Method Nutrition Diagnosis: - Excessive CHO intake r/t nutrition knowledge deficit aeb pt report and CGM data- in progress/improved - Nutrition and food related knowledge deficit r/t needing review of how to treat lows with rule of 15 vs dessert aeb pt report and CGM- new Intervention: This participant was very receptive. Provided appropriate educational handouts. Discussed the following topics: Reviewed Rule of 15 tx for lows Discussed HS snack options with protein Reviewed potential reasons for lows in the night Encouraged reduced glimepiride per PCP plan and increase in Ozempic Troubleshooting SMBG supplies Created SMART goals for patient self-care and success. 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 will review CGM in 2 days. Nathalie Pitt RDN, ELIS Certified Diabetes Care and Advertising Consultant P: [phone] Thank you for this referral
== END ==
LOC: DIET 12:38
PROVIDERS: PCP Family Medicine; Referring Provider Family Medicine
DX: E11.65 Type 2 diabetes mellitus with hyperglycemia (principal); Z71.3 Dietary counseling and surveillance; Z79.85 Long-term (current) use of injectable non-insulin antidiabetic drugs; Z79.84 Long term (current) use of oral hypoglycemic drugs; Z79.4 Long term (current) use of insulin
CPT/HCPCS: G0270

== ENCOUNTER → 2025-06-16 14:35 | Outpatient (CLI) | payer MEDICARE, BC, SELFPAY ==
--- NOTE | 2025-06-16 16:20 | DIAB.MNTFU ---
Follow-up Diabetes Medical Nutrition Therapy Assessment Name: Sirena Salguero (Samantha) Date: 06/16/25 Time: 3-330p Dx: Type II Diabetes Samantha presents for Dm visit. Still taking Ozempic on 0.5mg. No SE, not much change in BG. Has not d/c'd glimepiride at evening meal. No lows lately, however often waking mid morning and eating to prevent lows it seems. States she thinks her Bg will be too high if she d/c glimepiride dose. Encouraged her to reduce once 1mg Ozempic starts. RD will call her 1-2 days after titration. Reports diet recall of 30-50g CHO for most meals. Has been successful in avoiding desserts. Still having excessive elevations. Injecting in same two spots on abdomen. Picked up SMBG supplies. Also picked up glucose tabs. Anthropometrics: Ht: 66 Wt: 145# 05/2025 145# 03/2025 143.5# 11/2024 Physical Activity: Exercise classes 3-4 x per week Self-Monitoring Blood Glucose: Continued excessive hyperglycemia similar to last visit. TIR: 23% very high 32% high 45% in range 0% low 0% very low avmg/dl GMI: 7.9% std dev: 64mg/dl variance: 33.1% Last TIR: 20% very high 32% high 48% in range 0% low <1% very low avmg/dl GMI: 7.8% std dev: 62mg/dl variance: 33.2% Diabetes Medications: 100mg Invokana 12u Glargine 2mg Glimepiride TID 0.5 Ozempic Pertinent Labs: HGa1c: 7.3% 06/2024 8% 08/2024 8% 02/2025 Past Medical History: (Last Updated 02/12/24 @ 11:56 by Kaleb Baltazar DO)Acute pain of right shoulder Alopecia (Unknown) Anemia (Unknown) as a childBalance problem Benign paroxysmal positional vertigo of left ear Body posture problem Cataracts, bilateral (2016) Cervical somatic dysfunction Cranial somatic dysfunction Diabetes (Unknown) Diabetic neuropathy Dry eyes, bilateral Dry skin GERD (gastroesophageal reflux disease) (Unknown) Glaucoma (Unknown) Glucosuria Hyperlipemia (Unknown) Kidney stones (Unknown) Lower urinary tract symptoms (LUTS) Nocturia more than twice per night Onychomycosis Osteoarthritis (Unknown) Osteopenia after menopause Postmenopausal atrophic vaginitis PUD (peptic ulcer disease) (Unknown) Rhinitis, nonallergic, chronic Right foot injury Urinary retention with incomplete bladder emptying Uveiti Nutrition Rx: Plate Method Nutrition Diagnosis: - Excessive CHO intake r/t nutrition knowledge deficit aeb pt report and CGM data- in progress/improved - Nutrition and food related knowledge deficit r/t needing review of how to treat lows with rule of 15 vs dessert aeb pt report and CGM- improved Intervention: This participant was very receptive. Provided appropriate educational handouts. Discussed the following topics: Encouraged reduced glimepiride per PCP plan and increase in Ozempic Discussed carb recs for portions Encouraged rotation of injection sites Created SMART goals for patient self-care and success. 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 call her in two weeks after 1mg Ozempic titration to ensure no patterns of lows. Nathalie Pitt, GIULIA, ELIS Certified Diabetes Care and External Relations Manager P: [phone] Thank you for this referral
== END ==
LOC: DIET 14:36
PROVIDERS: PCP Family Medicine; Referring Provider Family Medicine
DX: E11.65 Type 2 diabetes mellitus with hyperglycemia (principal); Z71.3 Dietary counseling and surveillance; Z79.85 Long-term (current) use of injectable non-insulin antidiabetic drugs; Z79.84 Long term (current) use of oral hypoglycemic drugs
CPT/HCPCS: G0270

== ENCOUNTER → 2025-07-13 13:05 | Outpatient (CLI) | payer MEDICARE, BC, SELFPAY ==
--- NOTE | 2025-08-11 17:05 | DIAB.MNTFU ---
Follow-up Diabetes Medical Nutrition Therapy Assessment Name: Sirena Salguero (Samantha) Date: 07/13/25 Time: 120-150p Dx: Type II Diabetes Samantha presents for Dm visit. Denies any lows. Reduced carb portions. Endorses constipation, BM q 3-4 days. Urinating q hour x 1 year per report. Endorses tingling in right arm/hand when pushing to urinate. Encouraged her to mention this to provider. Breakfast includes choosing lower sugar cereal and side of fruit or toast OR eggs/cheese with fruit and milk OR PB toast and part apple At the time of this visit, may benefit form increased GLP1 with potential reduction of insulin and/or d/c of glimepiride. RD messaged provider. Anthropometrics: Ht: 66 Wt: 145.2# reported 07/2025 145# 05/2025 145# 03/2025 143.5# 11/2024 Physical Activity: Exercise classes 3-4 x per week Self-Monitoring Blood Glucose: Continued excessive hyperglycemia, though improved since last visit. Most of hyperglycemia is due to postprandial elevations. TIR: 13% very high 37% high 50% in range 0% low 0% very low avmg/dl GMI: 7.6% std dev: 59mg/dl variance: 32.7% Last TIR: 23% very high 32% high 45% in range 0% low 0% very low avmg/dl GMI: 7.9% std dev: 64mg/dl variance: 33.1% Diabetes Medications: 100mg Invokana 12u Glargine 2mg Glimepiride TID 1mg Ozempic Pertinent Labs: HGa1c: 7.3% 06/2024 8% 08/2024 8% 02/2025 Past Medical History: (Last Updated 02/12/24 @ 11:56 by Kaleb Baltazar DO)Acute pain of right shoulder Alopecia (Unknown) Anemia (Unknown) as a childBalance problem Benign paroxysmal positional vertigo of left ear Body posture problem Cataracts, bilateral (2016) Cervical somatic dysfunction Cranial somatic dysfunction Diabetes (Unknown) Diabetic neuropathy Dry eyes, bilateral Dry skin GERD (gastroesophageal reflux disease) (Unknown) Glaucoma (Unknown) Glucosuria Hyperlipemia (Unknown) Kidney stones (Unknown) Lower urinary tract symptoms (LUTS) Nocturia more than twice per night Onychomycosis Osteoarthritis (Unknown) Osteopenia after menopause Postmenopausal atrophic vaginitis PUD (peptic ulcer disease) (Unknown) Rhinitis, nonallergic, chronic Right foot injury Urinary retention with incomplete bladder emptying Uveiti Nutrition Rx: Plate Method Nutrition Diagnosis: - Excessive CHO intake r/t nutrition knowledge deficit aeb pt report and CGM data- improved - Predicted inadequate fiber intake r/t reduced portions and taking GLP1 aeb constipation reported Intervention: This participant was very receptive. Provided appropriate educational handouts. Discussed the following topics: BG review, RD messaged PCP Discussed carb recs for portions Encouraged discussion with provider about tingling in arms/hands Fiber intake supplement and foods Created SMART goals for patient self-care and success. Goals: Rotate injection sites- met Confirm lows with a finger stick if able- in progress In 2 weeks, move up to 1mg Ozempic- met Choose one carb choices at meals- in progress Reach out to PCP - new increase fiber with foods or supplement 1-2x per day- new Follow-up: GIULIA GILLIS follow-up in 3-4 weeks. Nathalie Pitt RDN, ELIS Certified Diabetes Care and Health Promotion Officer P: [phone] Thank you for this referral
== END ==
LOC: DIET 13:06
PROVIDERS: PCP Family Medicine; Referring Provider Family Medicine
DX: E11.65 Type 2 diabetes mellitus with hyperglycemia (principal); Z71.3 Dietary counseling and surveillance; Z79.84 Long term (current) use of oral hypoglycemic drugs; Z79.85 Long-term (current) use of injectable non-insulin antidiabetic drugs; Z79.4 Long term (current) use of insulin
CPT/HCPCS: G0270

== ENCOUNTER 2025-07-14 10:52 | Emergency (ER) | payer MEDICARE, BC, SELFPAY ==
[2025-07-14 11:17] VITALS: BP 135/65; PULSE 90; RESP 16; TEMP 36.7; O2SAT 95; BMI 23.2
--- NOTE | 2025-07-14 11:59 | ED.FEMALEGU ---
HPI - Female Genitourinary <Toshia Dahl PA-C - Last Filed: 07/14/25 18:25> General Chief complaint: Urogenital-Female Stated complaint: Possible UTI , 2 Days getting worse Time Seen by Provider: 07/14/25 11:29 History of Present Illness HPI Narrative: Sirena Salguero is a very pleasant 85-year-old female with a past medical history of T2DM, HSV, HLD who presents to the emergency department for concern of UTI x4 days. Patient states for the last few days she has had increased urinary urgency, frequency, dysuria and incontinence. The patient is having to urinate every 30 minutes and sometimes she can not make it to the toilet in time. Reports she was treated for UTI a few months ago and symptoms felt similar. She denies hematuria, abdominal pain, flank pain, chest pain, shortness of breath, fevers, chills, discolored urine or malodorous urine, vaginal discharge. Reports she has a large soft bowel movement every 3-4 days. 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 Related Data Home Medications ?Medication ?Instructions ?Recorded ?Confirmed latanoprost 0.005 % eye drops 1 drp EYE-BOTH BEDTIME 03/03/18 05/13/25 timolol maleate 0.5 % eye drops 1 drp ophthalmic (eye) SEEINSTR 03/03/18 05/13/25 cholecalciferol (vitamin D3) 50 2,000 unit PO DAILY 03/24/19 05/13/25 mcg (2,000 unit) capsule ketoconazole 2 % shampoo 1 applic topical 2XW 01/25/21 05/13/25 upadacitinib 15 mg tablet,extended 15 mg PO DAILY 03/08/25 05/13/25 release 24 hr (Rinvoq) nitrofurantoin macrocrystal 100 mg 100 mg PO BID 04/27/25 05/13/25 capsule Previous Rx's ?Medication ?Instructions ?Recorded Disabled parking permit #1 ea 03/24/19 brimonidine 0.15 % eye drops 1 drp ophthalmic (eye) BID #10 mL 11/05/19 pen needle, diabetic 31 gauge x #100 ea 05/08/2108/07 (Comfort EZ Pen Elsie) fluticasone propionate 50 1 spray intranasal BID PRN 08/27/23 mcg/actuation nasal geriatric rhinitis #16 grams spray,suspension (Flonase Allergy Relief) DISABLED PARKING PERMIT #1 ea 01/09/24 insulin glargine 100 unit/mL (3 See Rx Instructions .Route 02/04/24 mL) subcutaneous pen (Basaglar .COMPLEX #15 mL KwikPen U-100 Insulin) acyclovir 5 % topical cream 1 applic topical 5XD 4 days #5 11/11/24 grams atorvastatin 10 mg tablet 10 mg PO ONCE PM #90 tabs 02/14/25 arkray glucocard expression #1 ea 03/17/25 blood-glucose meter #1 ea 03/25/25 lancets 31 gauge (Comfort Touch #100 ea 03/25/25 Ultra Thin Lancets) blood sugar diagnostic (Blood #100 ea 04/19/25 Glucose Test strips) acyclovir 5 % topical cream 1 applic topical 5XD 4 days #5 05/13/25 grams semaglutide 0.25 mg or 0.5 mg (2 0.5 mg (0.736 mL) SUBCUT QWEEK #3 05/13/25 mg/3 mL) subcutaneous pen injector mL (Ozempic) semaglutide 1 mg/dose (4 mg/3 mL) 1 mg (0.75 mL) SUBCUT QWEEK #3 mL 05/13/25 subcutaneous pen injector (Ozempic) glimepiride 2 mg tablet 2 mg PO 3XD #270 tabs 05/16/25 canagliflozin 100 mg tablet 100 mg PO QAM #90 tabs 05/18/25 (Invokana) terbinafine HCl 250 mg tablet 250 mg PO 3XW #36 tabs 05/18/25 blood sugar diagnostic (OneTouch #100 ea 05/20/25 Ultra Test strips) estradiol 0.01% (0.1 mg/gram) See Rx Instructions .Route 05/20/25 vaginal cream .COMPLEX #42.5 grams cephalexin 500 mg capsule 500 mg PO QID 7 days #28 caps 07/14/25 Allergies Allergy/AdvReac Type Severity Reaction Status Date / Time metformin (METFORMIN) Allergy Unknown Verified 05/13/25 09:26 Penicillins (PENICILLINS) Allergy Unknown Verified 05/13/25 09:26 rofecoxib (ROFECOXIB) Allergy Unknown Verified 05/13/25 09:26 Sulfa (Sulfonamide Allergy Unknown Verified 05/13/25 09:26 Antibiotics) (SULFA (SULFONAMIDE ANTIBIOTICS)) adalimumab (From Humira(CF)) AdvReac Severe Rash Verified 05/13/25 09:26 etanercept (From Enbrel) AdvReac Severe Rash Verified 05/13/25 09:26 methotrexate AdvReac Verified 05/13/25 09:26 Review of Systems <Toshia Dahl PA-C - Last Filed: 07/14/25 18:25> Review of Systems ROS Unobtainable: All systems reviewed & are unremarkable except as noted in HPI and below Patient History <Toshia Dahl PA-C - Last Filed: 07/14/25 18:25> Medical History Herpes simplex virus (HSV) infection of vagina UTI (urinary tract infection) Nocturia more than twice per night Rhinitis, nonallergic, chronic Diabetic neuropathy Dry skin Balance problem Dry eyes, bilateral Cervical somatic dysfunction Benign paroxysmal positional vertigo of left ear Uveitis Onychomycosis Glucosuria Lower urinary tract symptoms (LUTS) Postmenopausal atrophic vaginitis Cranial somatic dysfunction Body posture problem Acute pain of right shoulder Urinary retention with incomplete bladder emptying Osteopenia after menopause Right foot injury PUD (peptic ulcer disease) (Unknown) Kidney stones (Unknown) Cataracts, bilateral (2016) Glaucoma (Unknown) Osteoarthritis (Unknown) Alopecia (Unknown) Hyperlipemia (Unknown) Diabetes (Unknown) GERD (gastroesophageal reflux disease) (Unknown) Anemia (Unknown) Surgical History Hx of cataract surgery (2016) History of tonsillectomy Exam <Toshia Dahl PA-C - Last Filed: 07/14/25 18:25> Narrative Exam Narrative: GENERAL: 85 year old patient appears stated age. Well-developed patient, in no acute distress. HEAD: Atraumatic. Normocephalic. NECK: Trachea midline. Cervical ROM intact. CARDIOVASCULAR: Regular rate and rhythm. RESPIRATORY: ?Nonlabored respirations. ?Speaking in clear, full sentences. ?Clear to auscultation. Breath sounds equal bilaterally. No wheezes, rales, or rhonchi. ? GASTROINTESTINAL: Abdomen soft, non-tender, nondistended. BS present. EXTREMITIES: No LE edema. BACK: No CVA tenderness BL. NEURO: AOx3. ?Clear speech. ?Ambulates with rollator walker. SKIN: No rash or erythema of visible areas Initial Vital Signs Initial Vital Signs: Vital Signs Temperature 98.1 F 07/14/25 11:17 Pulse Rate 90 07/14/25 11:17 Respiratory Rate 16 07/14/25 11:17 Blood Pressure 135/65 07/14/25 11:17 Pulse Oximetry 95 07/14/25 11:17 Oxygen Delivery Method Room Air 07/14/25 11:17 <Treasure Cutler DO - Last Filed: 07/14/25 19:04> Initial Vital Signs Initial Vital Signs: Vital Signs Temperature 98.1 F 07/14/25 11:17 Pulse Rate 90 07/14/25 11:17 Respiratory Rate 16 07/14/25 11:17 Blood Pressure 135/65 07/14/25 11:17 Pulse Oximetry 95 07/14/25 11:17 Oxygen Delivery Method Room Air 07/14/25 11:17 Course <Toshia Dahl PA-C - Last Filed: 07/14/25 18:25> Orders Ordered: ED Orders 07/14/25 11:35 Urinalysis and Microscopic Stat Urine Culture Stat 07/14/25 11:54 CBC Auto Diff [Complete Blood Count AUTO DIFF] Stat CMP [Comprehensive Metabolic Panel] Stat Lactate (Lactic Acid) Stat Discontinued Medications Cephalexin HCl (Cephalexin 250 Mg Capsule) 500 mg PO NOW ONE Stop: 07/14/25 12:55 Last Admin: 07/14/25 13:07 Dose: 500 mg Documented By: [facility] Vital Signs Vital signs: Vital Signs - 8 hr 07/14/25 11:17 07/14/25 12:11 Temperature 98.1 F Pulse Rate 90 89 Respiratory Rate 16 20 Blood Pressure 135/65 141/65 H Pulse Oximetry 95 95 Oxygen Delivery Method Room Air Room Air <DO Adrien Juares Last Filed: 07/14/25 19:04> Orders Ordered: ED Orders 07/14/25 11:35 Urinalysis and Microscopic Stat Urine Culture Stat 07/14/25 11:54 CBC Auto Diff [Complete Blood Count AUTO DIFF] Stat CMP [Comprehensive Metabolic Panel] Stat Lactate (Lactic Acid) Stat Discontinued Medications Cephalexin HCl (Cephalexin 250 Mg Capsule) 500 mg PO NOW ONE Stop: 07/14/25 12:55 Last Admin: 07/14/25 13:07 Dose: 500 mg Documented By: Rajni Vital Signs Vital signs: Vital Signs - 8 hr 07/14/25 11:17 07/14/25 12:11 Temperature 98.1 F Pulse Rate 90 89 Respiratory Rate 16 20 Blood Pressure 135/65 141/65 H Pulse Oximetry 95 95 Oxygen Delivery Method Room Air Room Air MDM - Female Genitourinary <Toshia Dahl PA-C - Last Filed: 07/14/25 18:25> Medical Records Attestation: I reviewed the patient's medical records. Lab Data 07/14/25 11:54 07/14/25 11:54 Labs: Lab Results 07/14/25 07/14/25 Range/Units 11:35 11:54 WBC 11.8 H (4.5-11.0) X10^3/uL RBC 4.15 (4.0-5.2) X10^6/uL Hgb 13.5 (12.0-16.0) g/dL Hct 39.4 (36-46) % MCV 95.1 (80-100) fL MCH 32.5 (26-34) PG MCHC 34.1 (30-36) % RDW 13.5 (11.6-14.8) % Plt Count 263 (150-400) X10^3/uL Neut % (Auto) 80.2 H (50-75) % Lymph % (Auto) 11.3 L (25-40) % [place] % (Auto) 7.3 (3-14) % Eos % (Auto) 0.7 L (2-4) % Baso % (Auto) 0.5 (0-2) % Neut # (Auto) 9500 H (3082-5633) /uL Lymph # (Auto) 1300 (4116-6685) /uL [place] # (Auto) 900 (0-900) /uL Eos # (Auto) 100 (0-450) /uL Baso # (Auto) 100 (0-100) /uL Sodium 139 (137-145) mmol/L Potassium 4.1 (3.4-5.1) mmol/L Chloride 102 (98-107) mmol/L Carbon Dioxide 28 (22-32) mmol/L BUN 20 H (7-17) mg/dL Creatinine 0.68 (0.52-1.04) mg/dL Estimated GFR > 60 (>60) mL/min BUN/Creatinine Ratio 29.4 H (6-22) Glucose 189 H (70-99) mg/dL Lactate 0.7 (0.7-2.1) mmol/L Calcium 9.8 (8.4-10.2) mg/dL Total Bilirubin 0.8 (0.2-1.3) mg/dL AST 24 (14-36) IU/L ALT 11 (<35) IU/L Alkaline Phosphatase 44 (38-126) U/L Total Protein 7.7 (6.3-8.2) g/dL Albumin 4.6 (3.5-5.0) g/dL Globulin 3.1 (1.7-4.1) g/dL Albumin/Globulin Ratio 1.5 (1.0-2.8) Urine Color Yellow Urine Appearance Clear Urine pH 5.0 (4.5-8.0) Ur Specific Jensen 1.015 (1.000-1.035) Urine Protein Negative (Negative) Urine Glucose (UA) 3+ H (Negative) g/dL Urine Ketones Trace H (NEGATIVE) Urine Occult Blood 2+ H (Negative) Urine Nitrate Negative (Negative) Urine Bilirubin Negative (NEGATIVE) Urine Urobilinogen 0.2 (0.2) E.U./dL Ur Leukocyte Esterase Negative (NEGATIVE) Urine RBC 10-30/hpf H (0-5/HPF) Urine WBC 5-10/hpf H (0-5/HPF) Ur Squamous Epith Cells None seen (0-5/HPF) Urine Bacteria None seen (None) Ur Culture Indicated? Specimen cultured Vol Urine Centrifuged 10ml (spun) MDM Narrative Medical decision making narrative: 85-year-old female with a past medical history of T2DM, HSV, HLD who presents to the emergency department for concern of UTI x4 days. DIFFERENTIAL DIAGNOSIS INCLUDES BUT IS NOT LIMITED TO urinary tract infection, overactive bladder, interstitial cystitis, etc. On exam the patient is in no acute distress, nontoxic-appearing, all vital signs within normal limits. SIRS screen negative. She is having increased urinary urgency, frequency and incontinence with concerned for UTI. Most recent urine culture 04/25/2025 grew E coli with susceptibility to most antibiotics, resistance to Cipro and levo and tetracycline. She is not having any abdominal or flank pain. We will obtain CBC, CMP, lactate, urine. Labs reveal mildly elevated WBC count 11.8 with predominant neutrophils. Labs reveal slightly elevated BUN creatinine ratio 20, 0.68. Glucose 189. Normal LFTs. Urine with RBCs and WBCs. Given patient's symptoms, urine was sent for culture and we will treat. She is allergic to penicillins and sulfa antibiotics. She denies any prior issues with cephalosporins. We will treat with Keflex 500 mg q.i.d. x7 days. Discussed with the patient that urine culture is pending. Advised follow up with the Urology, discussed strict ER return precautions PCP follow up. Patient verbalized understanding of all information agreeable with the plan. First dose of antibiotics given in the ED. She is stable for discharge home. <Treasure Cutler, DO - Last Filed: 07/14/25 19:04> Lab Data Labs: Lab Results 07/14/25 07/14/25 Range/Units 11:35 11:54 WBC 11.8 H (4.5-11.0) X10^3/uL RBC 4.15 (4.0-5.2) X10^6/uL Hgb 13.5 (12.0-16.0) g/dL Hct 39.4 (36-46) % MCV 95.1 (80-100) fL MCH 32.5 (26-34) PG MCHC 34.1 (30-36) % RDW 13.5 (11.6-14.8) % Plt Count 263 (150-400) X10^3/uL Neut % (Auto) 80.2 H (50-75) % Lymph % (Auto) 11.3 L (25-40) % [place] % (Auto) 7.3 (3-14) % Eos % (Auto) 0.7 L (2-4) % Baso % (Auto) 0.5 (0-2) % Neut # (Auto) 9500 H (8041-2369) /uL Lymph # (Auto) 1300 (7634-1022) /uL [place] # (Auto) 900 (0-900) /uL Eos # (Auto) 100 (0-450) /uL Baso # (Auto) 100 (0-100) /uL Sodium 139 (137-145) mmol/L Potassium 4.1 (3.4-5.1) mmol/L Chloride 102 (98-107) mmol/L Carbon Dioxide 28 (22-32) mmol/L BUN 20 H (7-17) mg/dL Creatinine 0.68 (0.52-1.04) mg/dL Estimated GFR > 60 (>60) mL/min BUN/Creatinine Ratio 29.4 H (6-22) Glucose 189 H (70-99) mg/dL Lactate 0.7 (0.7-2.1) mmol/L Calcium 9.8 (8.4-10.2) mg/dL Total Bilirubin 0.8 (0.2-1.3) mg/dL AST 24 (14-36) IU/L ALT 11 (<35) IU/L Alkaline Phosphatase 44 (38-126) U/L Total Protein 7.7 (6.3-8.2) g/dL Albumin 4.6 (3.5-5.0) g/dL Globulin 3.1 (1.7-4.1) g/dL Albumin/Globulin Ratio 1.5 (1.0-2.8) Urine Color Yellow Urine Appearance Clear Urine pH 5.0 (4.5-8.0) Ur Specific [place] 1.015 (1.000-1.035) Urine Protein Negative (Negative) Urine Glucose (UA) 3+ H (Negative) g/dL Urine Ketones Trace H (NEGATIVE) Urine Occult Blood 2+ H (Negative) Urine Nitrate Negative (Negative) Urine Bilirubin Negative (NEGATIVE) Urine Urobilinogen 0.2 (0.2) E.U./dL Ur Leukocyte Esterase Negative (NEGATIVE) Urine RBC 10-30/hpf H (0-5/HPF) Urine WBC 5-10/hpf H (0-5/HPF) Ur Squamous Epith Cells None seen (0-5/HPF) Urine Bacteria None seen (None) Ur Culture Indicated? Specimen cultured Vol Urine Centrifuged 10ml (spun) Discharge Plan Departure Patient Disposition: Home Clinical Impression: Acute UTI Urinary incontinence Qualifiers: Urinary Incontinence type: unspecified incontinence Qualified Code(s): R32 - Unspecified urinary incontinence Instructions: DI for Urinary Tract Infection (UTI), DI for Urinary Incontinence Activity Restrictions/Additional Instructions: Dear Ms. Salguero, Thank you for coming to the emergency department. Today you were evaluated for concern of urinary symptoms. Your urinalysis was concerning for infection. We have started you on a course of antibiotics. However it is very important that you follow up with your primary care doctor and/or Urology for further evaluation of your urinary problems. If you develop new or worsening symptoms, pain, fevers, inability to urinate or any other concerns please return to the ER immediately. Please follow up with your primary care doctor within the next 2-3 days for ER follow-up. (If you do not have a PCP you can call [phone]. ?to schedule an appointment with an [facility] Primary Care Provider) IF YOU DEVELOP ANY NEW OR WORSENING SYMPTOMS, RETURN TO THE ER! Please read the attached instructions, they highlight more specific treatments and interventions for you at home. Thank you for letting me participate in your care, Toshia Dahl PA-C Prescriptions: New cephalexin 500 mg capsule 500 mg PO QID 7 Days Qty: 28 0RF No Action brimonidine 0.15 % drops 1 drp ophthalmic (eye) BID Qty: 10 0RF (DME) pen needle, diabetic [Comfort EZ Pen Elsie] 31 gauge x 1/4 needle See Rx Instructions .Route Qty: 100 3RF Rx Instructions: As directed (DME) DISABLED PARKING PERMIT See Rx Instructions .ROUTE .MEDSUPPLY Qty: 1 0RF Rx Instructions: I FIND THIS PATIENT TO BE MEDICALLY DISABLED AND QUALIFIED FOR DISABLE PARKING INDICATED, AND SIGNED ON THE ACCOMPANYING rubberit APPLICATION FOR INDIVIDUALS Wilberto Dutton U-100 Insulin 100 unit/mL (3 mL) insulin pen See Rx Instructions .ROUTE .COMPLEX Qty: 15 2RF Dose Instruction: INJECT 12 UNITS UNDER THE SKIN EVERY NIGHT AT BEDTIME Rx Instructions: INJECT 12 UNITS UNDER THE SKIN EVERY NIGHT AT BEDTIME acyclovir 5 % cream 1 applic topical 5XD 4 Days Qty: 5 3RF atorvastatin 10 mg tablet 10 mg PO ONCE PM Qty: 90 3RF (DME) arkray glucocard expression See Rx Instructions .Route .MEDSUPPLY Qty: 1 0RF Rx Instructions: As directed, test blood sugar up to 4 times daily (DME) blood-glucose meter Misc See Rx Instructions .Route Qty: 1 0RF Rx Instructions: Use to test blood sugar up to four times a day. (DME) Comfort Touch Ult Thin Lancets 31 gauge misc See Rx Instructions .Route Qty: 100 10RF Rx Instructions: Test blood sugar up to four times daily. (DME) Blood Glucose Test Strip See Dose Instructions .ROUTE .MEDSUPPLY Qty: 100 10RF Dose Instruction: As directed Rx Instructions: Test blood sugars up to four times daily Pt needs One Touch Ultra 2 glimepiride 2 mg tablet 2 mg PO 3XD Qty: 270 1RF terbinafine HCl 250 mg tablet 250 mg PO 3XW Qty: 36 1RF Invokana 100 mg tablet 100 mg PO QAM Qty: 90 1RF (DME) OneTouch Ultra Test Strip See Rx Instructions .Route Qty: 100 3RF Rx Instructions: Test blood sugar three times a day. estradiol 0.01 % (0.1 mg/gram) cream See Rx Instructions .ROUTE .COMPLEX Qty: 42.5 3RF Dose Instruction: APPLY 1 GRAM VAGINALLY TWICE WEEKLY Rx Instructions: APPLY 1 GRAM VAGINALLY TWICE WEEKLY cholecalciferol (vitamin D3) 2,000 unit capsule 2,000 unit PO DAILY (DME) Disabled parking permit Qty: 1 0RF Dose Instruction: As directed Rx Instructions: As directed ketoconazole 2 % shampoo 1 applic topical 2XW fluticasone propionate [Flonase Allergy Relief] 50 mcg/actuation spray,suspension 1 spray intranasal BID PRN (Reason: geriatric rhinitis) Qty: 16 5RF Rx Instructions: administer into each nostril Rinvoq 15 mg tablet extended release 24 hr 15 mg PO DAILY Ozempic 0.25 mg or 0.5 mg (2 mg/3 mL) pen injector 0.5 mg SUBCUT QWEEK Qty: 3 0RF Rx Instructions: for four weeks and then another increase with another rx Ozempic 1 mg/dose (4 mg/3 mL) pen injector 1 mg SUBCUT QWEEK Qty: 3 2RF acyclovir 5 % cream 1 applic topical 5XD 4 Days Qty: 5 6RF nitrofurantoin macrocrystal 100 mg capsule 100 mg PO BID Rx Instructions: must administer with a meal/food latanoprost 0.005 % drops 1 drp EYE-BOTH BEDTIME timolol maleate 0.5 % drops 1 drp ophthalmic (eye) SEEINSTR Patient Comments: instill 1 drop in right eye once a day in the morning and one drop in left eye 2 times a day Referrals: Rell Lee DO [Physician, Urology] Referral Note: urinary incontinence Kaleb Baltazar DO [Primary Care Provider, Family Practice] Stand Alone Forms: Patient Portal/API ED Sign-out <Treasure Cutler DO - Last Filed: 07/14/25 19:04> Cosign ED Attending Cosbennyature Attestation: I was immediately available in the department for consultation.
[2025-07-14 12:04] LABS: Appearance Urine UA CLEAR; Bilirubin Urine UA NEGATIVE (NEGATIVE); Color Urine UA YELLOW; Glucose Urine UA 3+ g/dL (Negative); Ketones Urine UA TRACE (NEGATIVE); Leukocyte Esterase Urine UA NEGATIVE (NEGATIVE); Nitrite Urine UA NEGATIVE (Negative); Occult Blood Urine UA 2+ (Negative); Protein Urine UA NEGATIVE (Negative); Specific Gravity Urine UA 1.015 (1.000-1.035); Urobilinogen Urine UA 0.2 E.U./dL (0.2); pH Urine UA 5.0 (4.5-8.0)
[2025-07-14 12:07] LABS: Culture Indicated Urine Specimen Cultured
[2025-07-14 12:07] LABS: Add Manual Diff / Slide Review NO; Hematocrit 39.4 % (36-46); Hemoglobin 13.5 g/dL (12.0-16.0); Lymphocytes Absolute Auto 1300 /uL (1100-4500); Mean Corpuscular HGB Conc 34.1 % (30-36); Mean Corpuscular Hemoglobin 32.5 PG (26-34); Mean Corpuscular Volume 95.1 fL (80-100); Platelet Count 263 X10^3/uL (150-400)
[2025-07-14 12:11] VITALS: BP 141/65; PULSE 89; RESP 20; O2SAT 95
[2025-07-14 12:21] LABS: Alanine Aminotransferase 11 IU/L (<35); Albumin 4.6 g/dL (3.5-5.0); Albumin Globulin Ratio 1.5 (1.0-2.8); Alkaline Phosphatase 44 U/L (38-126); Blood Urea Nitrogen 20 mg/dL (7-17); Calcium 9.8 mg/dL (8.4-10.2); Carbon Dioxide 28 mmol/L (22-32); Chloride 102 mmol/L (98-107); Estimated Glomerular Filt Rate > 60 mL/min (>60); Globulin 3.1 g/dL (1.7-4.1); Glucose 189 mg/dL (70-99); HEMOLYSIS < 15 (0-50); Potassium 4.1 mmol/L (3.4-5.1); Sodium 139 mmol/L (137-145); Total Protein 7.7 g/dL (6.3-8.2)
[2025-07-14 12:23] LABS: Lactate (Lactic Acid) 0.7 mmol/L (0.7-2.1)
== END 2025-07-14 13:13 | disposition home or self-care (01) ==
PROVIDERS: Emergency Provider Physician Assistant; PCP Family Medicine
DX: N39.0 Urinary tract infection, site not specified (principal); R32 Unspecified urinary incontinence; R30.0 Dysuria; R39.15 Urgency of urination
CPT/HCPCS: 36415; 80053; 81001; 83605; 85025; 87086; 99283